=== PATIENT | male | born 1970 | race African-American/Black ===

== ENCOUNTER 2017-08-10 03:10 | Inpatient (IN) | payer OTHER ==
[~2017-08-10] VITALS: Ht 182.9 cm; Wt 81.6 kg
[~2017-08-10 03:10] MED LIST: AMLO2.5T45 PO; ASPI-1159 PO; ATOR-2 PO; CLOP75TA33 PO; HYDR-519 PO; INSU3INS6 SUBCUT; INSULIN; LISI10TA5 PO; METO50TA5 PO; SERT25TA PO; SULF1TAB48 PO
[2017-08-10] MEDS ORDERED: ONDANSETRON HCL 4MG/2ML VIAL IV STA (04:09)
[2017-08-10] MEDS ORDERED: MORPHINE SULFATE 4 MG/ML CPJ (NOT FOR IM USE) IV STA (04:09)
[2017-08-10 04:37] LABS: BASOPHILS % 1.4 % (0.0-2.0); EOSINOPHILS % 2.2 % (0.0-5.0); HEMATOCRIT. 29.4 % (42.0-52.0); HEMOGLOBIN. 9.4 g/dL (14.0-18.0); LYMPHOCYTES % 25.8 % (20.0-50.0); MEAN CORPUSCULAR HEMOGLOBIN 23.2 pg (28.0-32.0); MEAN CORPUSCULAR VOLUME 72.5 fL (80.0-94.0); MEAN PLATELET VOLUME 8.7 fl (7.4-10.4); MONOCYTES % 8.4 % (2.0-8.0); NEUTROPHILS % 62.2 % (40.0-76.0); PLATELET 291 x1000/uL (130-400); RED BLOOD CELL COUNT 4.05 mill/uL (4.7-6.1); RED CELL DISTRIBUTION WIDTH 15.9 % (11.6-14.6)
[2017-08-10 04:53] LABS: CHLORIDE 113 mEq/L (98-107); TROPONIN I 0.11 ng/mL (0.00-0.04)
[2017-08-10 04:55] LABS: CARBON DIOXIDE 24 mEq/L (21-32)
[2017-08-10] MEDS ORDERED: CLONIDINE 0.1MG TABLET PO ONE (07:30)
[2017-08-10] MEDS ORDERED: HYDROCODONE/ACETAMINOPHEN 5/325MG TABLET PO PRN ×2 (07:45→12:00)
[2017-08-10 10:00] VITALS: BP 194/115
[2017-08-10] MEDS: AMLODIPINE 5MG TABLET PO SCH ×2 (11:45→21:49)
[2017-08-10] MEDS: CLOPIDOGREL 75MG TABLET PO SCH (11:46)
[2017-08-10] MEDS: ASPIRIN 81MG TABLET PO SCH (11:46)
[2017-08-10] MEDS: METOPROLOL TARTRATE 100MG TABLET PO SCH ×2 (11:46→21:50)
[2017-08-10] MEDS: ONDANSETRON HCL 4MG/2ML VIAL IV PRN (11:47)
[2017-08-10] MEDS: MORPHINE SULFATE 4 MG/ML CPJ (NOT FOR IM USE) IV PRN (11:48)
[2017-08-10 12:00] VITALS: BP 170/94
[2017-08-10] MEDS ORDERED: ONDANSETRON HCL 4MG/2ML VIAL IV PRN (12:00)
[2017-08-10] MEDS ORDERED: CLONIDINE 0.1MG TABLET PO PRN (12:00)
[2017-08-10] MEDS ORDERED: ACETAMINOPHEN 325MG TABLET PO PRN (12:00)
[2017-08-10] MEDS ORDERED: DIPHENHYDRAMINE 50MG/ML VIAL IV PRN (12:00)
[2017-08-10] MEDS ORDERED: DEXTROSE 50% WATER 50ML SYRINGE IV PRN (12:00)
[2017-08-10] MEDS ORDERED: IPRATROPIUM/ALBUTEROL 0.5-3(2.5)MG/3ML NEB INH PRN (12:00)
[2017-08-10 12:50] LABS: CLARITY URINE CLEAR (CLEAR); COLOR URINE YELLOW (YELLOW); GLUCOSE URINE TRACE (NEGATIVE); KETONES URINE NEGATIVE (NEGATIVE); LEUKOCYTE ESTERASE URINE NEGATIVE (NEGATIVE); NITRITE URINE NEGATIVE (NEGATIVE); OCCULT BLOOD URINE 1+ (NEGATIVE); PH URINE 7.5 (4.5-8.0); PROTEIN URINE 4+ (NEGATIVE); SPECIFIC GRAVITY URINE 1.014 (1.005-1.030); UROBILINOGEN URINE 0.2 E.U./dL (0.2-1.0)
[2017-08-10 13:04] LABS: *AMPHETAMINES SCREEN URINE NEGATIVE (NEGATIVE); *BARBITURATES SCREEN URINE NEGATIVE (NEGATIVE); *BENZODIAZEPINES SCREEN URINE NEGATIVE (NEGATIVE); *COCAINE SCREEN URINE NEGATIVE (NEGATIVE); CANNABINOID URINE SCREEN NEGATIVE (NEGATIVE); METHADONE URINE SCREEN NEGATIVE (NEGATIVE); OPIATES URINE SCREEN PRESUMTIVE POSITIVE (NEGATIVE); PHENCYCLIDINE URINE SCREEN NEGATIVE (NEGATIVE)
[2017-08-10] MEDS: INSULIN LISPRO 100 UNITS/ML SUBCUT SCH ×3 (13:10→21:00)
[2017-08-10] MEDS: BLOOD SUGAR DIAGNOSTIC STRIP TEST SCH ×3 (13:26→21:50)
[2017-08-10] MEDS: CLONIDINE 0.2MG TABLET PO SCH ×2 (13:38→21:49)
[2017-08-10 14:03] LABS: CREATINE KINASE MB FRACTION 4.5 ng/mL (0.5-3.6); TROPONIN I 0.11 ng/mL (0.00-0.04)
[2017-08-10 16:00] VITALS: BP 150/90
[2017-08-10 20:00] VITALS: BP 145/89
[2017-08-11 00:53] VITALS: BP 138/88
[2017-08-11 04:00] VITALS: BP 148/81
[2017-08-11] MEDS: MORPHINE SULFATE 4 MG/ML CPJ (NOT FOR IM USE) IV PRN ×4 (05:16→22:15)
[2017-08-11] MEDS: CLONIDINE 0.2MG TABLET PO SCH ×3 (06:24→21:43)
[2017-08-11 07:40] LABS: EOSINOPHILS % 3.8 % (0.0-5.0); HEMATOCRIT. 26.9 % (42.0-52.0); HEMOGLOBIN. 8.5 g/dL (14.0-18.0); LYMPHOCYTES % 37.6 % (20.0-50.0); MEAN CORPUSCULAR HEMOGLOBIN 22.9 pg (28.0-32.0); MEAN CORPUSCULAR VOLUME 72.5 fL (80.0-94.0); MONOCYTES % 7.9 % (2.0-8.0); NEUTROPHILS % 49.7 % (40.0-76.0); PLATELET 265 x1000/uL (130-400); RED CELL DISTRIBUTION WIDTH 16.8 % (11.6-14.6)
[2017-08-11] MEDS: BLOOD SUGAR DIAGNOSTIC STRIP TEST SCH ×4 (07:45→21:42)
[2017-08-11] MEDS: INSULIN LISPRO 100 UNITS/ML SUBCUT SCH ×4 (07:46→21:00)
[2017-08-11 08:00] VITALS: BP 148/87
[2017-08-11] MEDS: ASPIRIN 81MG TABLET PO SCH (08:44)
[2017-08-11] MEDS: CLOPIDOGREL 75MG TABLET PO SCH (08:44)
[2017-08-11] MEDS: AMLODIPINE 5MG TABLET PO SCH ×2 (08:45→21:43)
[2017-08-11] MEDS: METOPROLOL TARTRATE 100MG TABLET PO SCH ×2 (08:45→21:43)
[2017-08-11 09:14] LABS: CHLORIDE 111 mEq/L (98-107)
[2017-08-11 09:21] LABS: CARBON DIOXIDE 25 mEq/L (21-32); CREATINE KINASE 310 IU/L (39-308); HDL CHOLESTEROL 42 mg/dL (40-59); LDL CHOLESTEROL 70 mg/dL (5-100)
[2017-08-11] MEDS: ONDANSETRON HCL 4MG/2ML VIAL IV PRN ×2 (09:28→15:06)
[2017-08-11 12:00] VITALS: BP 124/72
[2017-08-11] MEDS ORDERED: SODIUM BICARBONATE 8.4% 1 MEQ/ML 50ML SYR IV NR (12:45)
[2017-08-11] MEDS ORDERED: SODIUM POLYSTYRENE SULFONATE 15 G/60 ML BOT PO NR (12:45)
[2017-08-11] MEDS ORDERED: DEXTROSE 50% WATER 50ML SYRINGE IV NR (12:45)
[2017-08-11] MEDS ORDERED: INSULIN REGULAR (HUMULIN R) UD 100 UNITS/ML SYR IV NR (14:00)
[2017-08-11 16:00] VITALS: BP 162/79
[2017-08-11 20:00] VITALS: BP 175/96
[2017-08-12] VITALS (7 sets, daily range): BP systolic 147–177; BP diastolic 71–96
[2017-08-12 06:12] LABS: BASOPHILS % 1.1 % (0.0-2.0); EOSINOPHILS % 3.3 % (0.0-5.0); HEMATOCRIT. 31.4 % (42.0-52.0); HEMOGLOBIN. 10.1 g/dL (14.0-18.0); LYMPHOCYTES % 31.8 % (20.0-50.0); MEAN CORPUSCULAR HEMOGLOBIN 23.3 pg (28.0-32.0); MEAN CORPUSCULAR VOLUME 72.7 fL (80.0-94.0); MEAN PLATELET VOLUME 9.1 fl (7.4-10.4); MONOCYTES % 7.6 % (2.0-8.0); NEUTROPHILS % 56.2 % (40.0-76.0); PLATELET 303 x1000/uL (130-400); RED BLOOD CELL COUNT 4.32 mill/uL (4.7-6.1); RED CELL DISTRIBUTION WIDTH 16.2 % (11.6-14.6)
[2017-08-12] MEDS: CLONIDINE 0.2MG TABLET PO SCH ×3 (06:48→22:25)
[2017-08-12] MEDS: INSULIN LISPRO 100 UNITS/ML SUBCUT SCH ×4 (06:54→20:23)
[2017-08-12] MEDS: BLOOD SUGAR DIAGNOSTIC STRIP TEST SCH ×4 (06:54→20:23)
[2017-08-12] MEDS ORDERED: DEXTROSE 50% WATER 50ML SYRINGE IV NR (08:30)
[2017-08-12] MEDS ORDERED: SODIUM POLYSTYRENE SULFONATE 15 G/60 ML BOT PO NR (08:30)
[2017-08-12] MEDS ORDERED: INSULIN REGULAR (HUMULIN R) UD 100 UNITS/ML SYR IV NR (08:30)
[2017-08-12] MEDS: SODIUM BICARBONATE 8.4% 1 MEQ/ML 50ML SYR IV NR (09:19)
[2017-08-12] MEDS: ASPIRIN 81MG TABLET PO SCH (09:20)
[2017-08-12] MEDS: AMLODIPINE 5MG TABLET PO SCH ×2 (09:20→20:22)
[2017-08-12] MEDS: CLOPIDOGREL 75MG TABLET PO SCH (09:20)
[2017-08-12] MEDS: MORPHINE SULFATE 4 MG/ML CPJ (NOT FOR IM USE) IV PRN ×2 (09:21→15:47)
[2017-08-12] MEDS: METOPROLOL TARTRATE 100MG TABLET PO SCH ×2 (09:21→20:22)
[2017-08-12] MEDS: ONDANSETRON HCL 4MG/2ML VIAL IV PRN ×2 (09:56→15:58)
[2017-08-13] MEDS: MORPHINE SULFATE 4 MG/ML CPJ (NOT FOR IM USE) IV PRN ×3 (00:05→08:18)
[2017-08-13 00:24] VITALS: BP 136/74
[2017-08-13 04:00] VITALS: BP 163/90
[2017-08-13] MEDS: CLONIDINE 0.2MG TABLET PO SCH (06:11)
[2017-08-13 08:00] VITALS: BP 146/82
[2017-08-13] MEDS: INSULIN LISPRO 100 UNITS/ML SUBCUT SCH (08:10)
[2017-08-13] MEDS: BLOOD SUGAR DIAGNOSTIC STRIP TEST SCH (08:12)
[2017-08-13 08:20] LABS: HEMATOCRIT 34.7 % (42.0-52.0); MEAN CORPUSCULAR HEMOGLOBIN 23.2 pg (28.0-32.0); MEAN CORPUSCULAR VOLUME 73.6 fL (80.0-94.0); PLATELET 308 x1000/uL (130-400); RED BLOOD CELL COUNT 4.72 mill/uL (4.7-6.1)
[2017-08-13] MEDS: SODIUM BICARBONATE 8.4% 1 MEQ/ML 50ML SYR IV NR (08:30)
[2017-08-13 08:49] LABS: CARBON DIOXIDE 27 mEq/L (21-32); CHLORIDE 105 mEq/L (98-107)
[2017-08-13] MEDS: METOPROLOL TARTRATE 100MG TABLET PO SCH (09:55)
[2017-08-13] MEDS: AMLODIPINE 5MG TABLET PO SCH (09:55)
[2017-08-13] MEDS: ASPIRIN 81MG TABLET PO SCH (09:56)
[2017-08-13] MEDS: CLOPIDOGREL 75MG TABLET PO SCH (09:56)
== END 2017-08-13 10:25 | disposition left against medical advice (07) | DRG 199 ==
LOC: ER 03:36 → 7WST 06:23 → ENRESERV 08:35
PROVIDERS: ADMIT Internal Medicine; ATTEND Internal Medicine
DX: I16.0 Hypertensive urgency (principal); N17.0 Acute kidney failure with tubular necrosis; E43 Unspecified severe protein-calorie malnutrition; E11.22 Type 2 diabetes mellitus with diabetic chronic kidney disease; M94.0 Chondrocostal junction syndrome [Tietze]; E87.5 Hyperkalemia; I25.118 Atherosclerotic heart disease of native coronary artery with other forms of angina pectoris; I12.9 Hypertensive chronic kidney disease with stage 1 through stage 4 chronic kidney disease, or unspecified chronic kidney disease; J44.9 Chronic obstructive pulmonary disease, unspecified; E78.00 Pure hypercholesterolemia, unspecified; Z53.21 Procedure and treatment not carried out due to patient leaving prior to being seen by health care provider; E78.5 Hyperlipidemia, unspecified; F17.200 Nicotine dependence, unspecified, uncomplicated; H54.7 Unspecified visual loss; Z79.82 Long term (current) use of aspirin; Z79.899 Other long term (current) drug therapy; Z91.19 Patient's noncompliance with other medical treatment and regimen; Z95.5 Presence of coronary angioplasty implant and graft; Z79.4 Long term (current) use of insulin; N18.9 Chronic kidney disease, unspecified
CPT/HCPCS: 36415; 71010; 76770; 80048; 80053; 80061; 80305; 81001; 82550; 82553; 82962; 83036; 84132; 84484; 85025; 85027; 85379; 87040; 87086; 93005; 93306; 96374; 96375; 99285; J1815; J2270; J2405; J3490

== ENCOUNTER 2017-11-14 14:54 | Inpatient (IN) | payer OTHER ==
[~2017-11-14] VITALS: Ht 175.3 cm; Wt 79.4 kg
[~2017-11-14 14:54] MED LIST changes: +AMLO10TA80 PO; +METO-539 PO; -METO50TA5 PO
[2017-11-14 16:05] LABS: BASOPHILS % 1.1 % (0.0-2.0); EOSINOPHILS % 1.1 % (0.0-5.0); HEMATOCRIT. 24.7 % (42.0-52.0); HEMOGLOBIN. 7.9 g/dL (14.0-18.0); LYMPHOCYTES % 15.6 % (20.0-50.0); MEAN CORPUSCULAR HEMOGLOBIN 23.8 pg (28.0-32.0); MEAN CORPUSCULAR VOLUME 74.2 fL (80.0-94.0); MEAN PLATELET VOLUME 8.6 fl (7.4-10.4); MONOCYTES % 8.7 % (2.0-8.0); NEUTROPHILS % 73.5 % (40.0-76.0); PLATELET 370 x1000/uL (130-400); RED BLOOD CELL COUNT 3.34 mill/uL (4.7-6.1); RED CELL DISTRIBUTION WIDTH 18.9 % (11.6-14.6)
[2017-11-14] MEDS ORDERED: CEFTRIAXONE 1 G PREMIX 50 ML IV ONE (17:30)
[2017-11-14] MEDS ORDERED: VANCOMYCIN 1 G PREMIX 200 ML IV SCH (17:30)
[2017-11-14] MEDS ORDERED: HYDROCODONE/ACETAMINOPHEN 10/325MG TABLET PO ONE (17:45)
[2017-11-14] MEDS ORDERED: DOCUSATE SODIUM 100MG CAPSULE PO PRN (19:15)
[2017-11-14] MEDS ORDERED: IPRATROPIUM/ALBUTEROL 0.5-3(2.5)MG/3ML NEB INH PRN (19:15)
[2017-11-14] MEDS ORDERED: HYDROCODONE/ACETAMINOPHEN 5/325MG TABLET PO PRN (19:15)
[2017-11-14] MEDS ORDERED: MAGNESIUM/ALUMINUM HYDROXIDE/SIMETHICONE 30ML UDC PO PRN (19:15)
[2017-11-14] MEDS ORDERED: ACETAMINOPHEN 325MG TABLET PO PRN (19:15)
[2017-11-14 20:30] VITALS: BP 168/85
[2017-11-14 21:52] VITALS: BP 168/85
[2017-11-14] MEDS ORDERED: VANCOMYCIN 500 MG PREMIX 100 ML IV SCH (22:00)
[2017-11-14] MEDS: PIPERACILLIN/TAZ 2.25G PREMIX 50 ML IV SCH (23:29)
[2017-11-14] MEDS: MORPHINE SULFATE 2 MG/ML CPJ (NOT FOR IM USE) IV PRN (23:53)
[2017-11-15 04:00] VITALS: BP 175/97
[2017-11-15] MEDS: MORPHINE SULFATE 2 MG/ML CPJ (NOT FOR IM USE) IV PRN ×4 (04:10→19:57)
[2017-11-15 05:43] LABS: HEMATOCRIT. 26.4 % (42.0-52.0); HEMOGLOBIN. 8.4 g/dL (14.0-18.0); MEAN CORPUSCULAR HEMOGLOBIN 23.5 pg (28.0-32.0); MEAN CORPUSCULAR VOLUME 73.5 fL (80.0-94.0); MEAN PLATELET VOLUME 8.7 fl (7.4-10.4); PLATELET 369 x1000/uL (130-400); RED BLOOD CELL COUNT 3.59 mill/uL (4.7-6.1); RED CELL DISTRIBUTION WIDTH 19.1 % (11.6-14.6)
[2017-11-15 05:49] LABS: CREATINE KINASE MB FRACTION 2.2 ng/mL (0.5-3.6)
[2017-11-15 08:00] VITALS: BP 176/96
[2017-11-15] MEDS: INSULIN LISPRO 100 UNITS/ML SUBCUT SCH ×4 (08:13→20:05)
[2017-11-15] MEDS ORDERED: DEXTROSE 50% WATER 50ML SYRINGE IV PRN (08:15)
[2017-11-15] MEDS: BLOOD SUGAR DIAGNOSTIC STRIP TEST SCH ×4 (08:57→20:05)
[2017-11-15] MEDS: CLONIDINE 0.1MG TABLET PO PRN ×2 (09:59→14:08)
[2017-11-15] MEDS: PIPERACILLIN/TAZ 2.25G PREMIX 50 ML IV SCH ×2 (10:16→21:50)
[2017-11-15 12:00] VITALS: BP 165/96
[2017-11-15] MEDS ORDERED: HYDROCODONE/ACETAMINOPHEN 10/325MG TABLET PO PRN (14:15)
[2017-11-15 15:40] VITALS: BP 174/91
[2017-11-15] MEDS: SERTRALINE HCL 25MG TABLET PO SCH (16:23)
[2017-11-15 17:09] LABS: CLARITY URINE CLEAR (CLEAR); COLOR URINE YELLOW (YELLOW); KETONES URINE NEGATIVE (NEGATIVE); LEUKOCYTE ESTERASE URINE 1+ (NEGATIVE); NITRITE URINE NEGATIVE (NEGATIVE); OCCULT BLOOD URINE TRACE (NEGATIVE); PH URINE >=9.0 (4.5-8.0); PROTEIN URINE 3+ (NEGATIVE); SPECIFIC GRAVITY URINE 1.011 (1.005-1.030); UROBILINOGEN URINE 0.2 E.U./dL (0.2-1.0)
[2017-11-15 17:22] LABS: *AMPHETAMINES SCREEN URINE NEGATIVE (NEGATIVE); *BARBITURATES SCREEN URINE NEGATIVE (NEGATIVE); *BENZODIAZEPINES SCREEN URINE NEGATIVE (NEGATIVE); *COCAINE SCREEN URINE NEGATIVE (NEGATIVE); CANNABINOID URINE SCREEN NEGATIVE (NEGATIVE); METHADONE URINE SCREEN NEGATIVE (NEGATIVE); OPIATES URINE SCREEN PRESUMTIVE POSITIVE (NEGATIVE); PHENCYCLIDINE URINE SCREEN NEGATIVE (NEGATIVE)
[2017-11-15] MEDS: ATORVASTATIN CALCIUM 40MG TABLET PO SCH (19:56)
[2017-11-15 20:00] VITALS: BP 146/89
[2017-11-16] VITALS (9 sets, daily range): BP systolic 156–187; BP diastolic 86–107
[2017-11-16] MEDS: MORPHINE SULFATE 2 MG/ML CPJ (NOT FOR IM USE) IV PRN ×6 (04:06→20:48)
[2017-11-16] MEDS: CLONIDINE 0.1MG TABLET PO PRN ×2 (04:45→12:03)
[2017-11-16 06:31] LABS: HEMOGLOBIN. 7.8 g/dL (14.0-18.0); MEAN CORPUSCULAR VOLUME 74.2 fL (80.0-94.0); MEAN PLATELET VOLUME 8.8 fl (7.4-10.4); PLATELET 334 x1000/uL (130-400); RED BLOOD CELL COUNT 3.24 mill/uL (4.7-6.1); RED CELL DISTRIBUTION WIDTH 18.9 % (11.6-14.6)
[2017-11-16] MEDS: BLOOD SUGAR DIAGNOSTIC STRIP TEST SCH ×4 (07:40→20:41)
[2017-11-16] MEDS: INSULIN LISPRO 100 UNITS/ML SUBCUT SCH ×4 (08:10→20:41)
[2017-11-16] MEDS: LISINOPRIL 10MG TABLET PO SCH (08:25)
[2017-11-16] MEDS: PIPERACILLIN/TAZ 2.25G PREMIX 50 ML IV SCH ×2 (08:25→20:47)
[2017-11-16] MEDS: SERTRALINE HCL 25MG TABLET PO SCH ×2 (08:26→16:08)
[2017-11-16] MEDS ORDERED: MEDICATION NOT ON FORMULARY EA (Atorvastatin Calcium 80 TAB) PO SCH (09:00)
[2017-11-16] MEDS ORDERED: AMLODIPINE 5MG TABLET PO SCH (09:00)
[2017-11-16] MEDS ORDERED: METOPROLOL TARTRATE 50MG TABLET PO SCH (09:00)
[2017-11-16 13:07] LABS: PLATELET ESTIMATE NORMAL
[2017-11-16 13:46] LABS: PLATELET ESTIMATE NORMAL
[2017-11-16] MEDS ORDERED: NEPVIT PO (15:51)
[2017-11-16] MEDS ORDERED: HYDR-4134 PO (15:51)
[2017-11-16] MEDS ORDERED: CALC667C PO (15:51)
[2017-11-16] MEDS ORDERED: CYM20 PO (15:51)
[2017-11-16] MEDS ORDERED: LINE600T32 PO (15:51)
[2017-11-16] MEDS ORDERED: VANCOMYCIN 1 G PREMIX 200 ML IV NR (16:00)
[2017-11-16] MEDS: HYDRALAZINE HCL 50MG TABLET PO SCH ×2 (16:52→17:00)
[2017-11-16] MEDS: ONDANSETRON HCL 4MG/2ML INJ IV PRN (18:30)
[2017-11-16] MEDS: ATORVASTATIN CALCIUM 40MG TABLET PO SCH (20:47)
[2017-11-16] MEDS: AMLODIPINE 5MG TABLET PO SCH (20:47)
[2017-11-16] MEDS: METOPROLOL TARTRATE 50MG TABLET PO SCH (20:47)
[2017-11-17] VITALS (14 sets, daily range): BP systolic 146–184; BP diastolic 79–104
[2017-11-17] MEDS: HYDRALAZINE HCL 50MG TABLET PO SCH ×4 (00:47→17:24)
[2017-11-17] MEDS: CLONIDINE 0.1MG TABLET PO PRN (00:49)
[2017-11-17] MEDS: MORPHINE SULFATE 2 MG/ML CPJ (NOT FOR IM USE) IV PRN ×5 (00:50→20:42)
[2017-11-17] MEDS: BLOOD SUGAR DIAGNOSTIC STRIP TEST SCH ×4 (05:47→20:46)
[2017-11-17] MEDS: INSULIN LISPRO 100 UNITS/ML SUBCUT SCH ×4 (08:10→20:46)
[2017-11-17] MEDS: PIPERACILLIN/TAZ 2.25G PREMIX 50 ML IV SCH ×2 (08:45→20:49)
[2017-11-17] MEDS: LISINOPRIL 10MG TABLET PO SCH (08:46)
[2017-11-17] MEDS: METOPROLOL TARTRATE 50MG TABLET PO SCH ×2 (08:46→20:42)
[2017-11-17] MEDS: AMLODIPINE 5MG TABLET PO SCH ×2 (08:46→20:42)
[2017-11-17] MEDS: SERTRALINE HCL 25MG TABLET PO SCH ×2 (08:51→16:47)
[2017-11-17 10:42] LABS: HEMATOCRIT. 24.9 % (42.0-52.0); HEMOGLOBIN. 7.7 g/dL (14.0-18.0); MEAN CORPUSCULAR HEMOGLOBIN 22.9 pg (28.0-32.0); MEAN CORPUSCULAR VOLUME 73.6 fL (80.0-94.0); MEAN PLATELET VOLUME 8.2 fl (7.4-10.4); PLATELET 353 x1000/uL (130-400); RED BLOOD CELL COUNT 3.38 mill/uL (4.7-6.1)
[2017-11-17] MEDS ORDERED: SODIUM BICARBONATE 4% (2.4MEQ) 5ML VIAL IV ONE (12:55)
[2017-11-17] MEDS ORDERED: LIDOCAINE HCL 1% 20ML VIAL (Pyxis) INJ ONE (12:55)
[2017-11-17 12:59] LABS: INR 1.1; PARTIAL THROMBOPLASTIN TIME 26.4 sec (23.4-31.0); PROTHROMBIN TIME 11.1 sec (9.4-11.6)
[2017-11-17] MEDS: ONDANSETRON HCL 4MG/2ML INJ IV PRN (13:14)
[2017-11-17] MEDS ORDERED: MORPHINE SULFATE 4 MG/ML CPJ (NOT FOR IM USE) IV NR (13:30)
[2017-11-17] MEDS ORDERED: HEPARIN 100 UNITS/1 ML VIAL IVF PRN (14:15)
[2017-11-17 16:45] LABS: PLATELET ESTIMATE NORMAL
[2017-11-17] MEDS ORDERED: HEPARIN SODIUM 1,000 UNIT/1ML VIAL IV NR (17:00)
[2017-11-17] MEDS: ATORVASTATIN CALCIUM 40MG TABLET PO SCH (20:46)
[2017-11-18] MEDS ORDERED: LISINOPRIL 20MG TABLET PO SCH (09:00)
[2018-02-17] MEDS ORDERED: CARI350T27 PO (16:19)
== END 2017-11-17 21:25 | disposition short-term general hospital (02) | DRG 721 ==
LOC: ER 15:07 → 6EST 17:21 → ENRESERV 19:22 → 7WST 11-15 15:19
PROVIDERS: ADMIT Internal Medicine; ATTEND Internal Medicine
PROC: 0JH63XZ Insertion of Tunneled Vascular Access Device into Chest Subcutaneous Tissue and Fascia, Percutaneous Approach (ICD-10-PCS; principal; 2017-11-17)
PROC: 02HV33Z Insertion of Infusion Device into Superior Vena Cava, Percutaneous Approach (ICD-10-PCS; 2017-11-17)
PROC: B5181ZA Fluoroscopy of Superior Vena Cava using Low Osmolar Contrast, Guidance (ICD-10-PCS; 2017-11-17)
PROC: B548ZZA Ultrasonography of Superior Vena Cava, Guidance (ICD-10-PCS; 2017-11-17)
DX: T80.211A Bloodstream infection due to central venous catheter, initial encounter (principal); I50.43 Acute on chronic combined systolic (congestive) and diastolic (congestive) heart failure; A41.9 Sepsis, unspecified organism; N18.6 End stage renal disease; I42.9 Cardiomyopathy, unspecified; E11.22 Type 2 diabetes mellitus with diabetic chronic kidney disease; I13.2 Hypertensive heart and chronic kidney disease with heart failure and with stage 5 chronic kidney disease, or end stage renal disease; E11.40 Type 2 diabetes mellitus with diabetic neuropathy, unspecified; D63.1 Anemia in chronic kidney disease; F19.90 Other psychoactive substance use, unspecified, uncomplicated; E78.5 Hyperlipidemia, unspecified; I25.118 Atherosclerotic heart disease of native coronary artery with other forms of angina pectoris; H54.62 Unqualified visual loss, left eye, normal vision right eye; F17.210 Nicotine dependence, cigarettes, uncomplicated; Y84.8 Other medical procedures as the cause of abnormal reaction of the patient, or of later complication, without mention of misadventure at the time of the procedure; Z91.19 Patient's noncompliance with other medical treatment and regimen; Z79.02 Long term (current) use of antithrombotics/antiplatelets; Z79.82 Long term (current) use of aspirin; Z99.2 Dependence on renal dialysis; Z95.5 Presence of coronary angioplasty implant and graft; Z79.899 Other long term (current) drug therapy; Y92.89 Other specified places as the place of occurrence of the external cause
CPT/HCPCS: 36415; 36558; 71045; 76937; 77001; 80048; 80061; 80202; 80305; 81001; 82550; 82553; 82962; 83605; 84484; 87070; 93005; 93306; 93970; 96365; 99291; C1725; C1750; C1769; J0696; J1642; J1644; J1815; J2270; J2405; J2543; J3370; J3490; J7030; J7050

== ENCOUNTER 2018-03-29 02:11 | Inpatient (IN) | payer MEDICAID ==
[~2018-03-29] VITALS: Ht 182.9 cm; Wt 85.3 kg
[~2018-03-29 02:11] MED LIST changes: -AMLO2.5T45 PO; -ATOR-2 PO; +CALC667C PO; +CARI350T27 PO; +CYM20 PO; +HYDR-4134 PO; -HYDR-519 PO; -INSU3INS6 SUBCUT; -INSULIN; -LISI10TA5 PO; -METO-539 PO; +NEPVIT PO; -SERT25TA PO; -SULF1TAB48 PO
[2018-03-29] MEDS ORDERED: MORPHINE SULFATE 4 MG/ML CPJ (NOT FOR IM USE) IV STA (02:47)
[2018-03-29] MEDS ORDERED: NITROGLYCERIN OINT 1GM/INCH UDPKT TD STA (02:47)
[2018-03-29] MEDS ORDERED: ONDANSETRON HCL 4MG/2ML VIAL IV STA (02:47)
[2018-03-29] MEDS ORDERED: CLONIDINE 0.2MG TABLET PO ONE (03:15)
[2018-03-29 03:35] LABS: BASOPHILS % 1.6 % (0.0-2.0); EOSINOPHILS % 2.9 % (0.0-5.0); HEMATOCRIT. 26.7 % (42.0-52.0); HEMOGLOBIN. 8.5 g/dL (14.0-18.0); MEAN CORPUSCULAR HEMOGLOBIN 24.1 pg (28.0-32.0); MEAN CORPUSCULAR VOLUME 75.6 fL (80.0-94.0); MEAN PLATELET VOLUME 8.6 fl (7.4-10.4); MONOCYTES % 5.2 % (2.0-8.0); NEUTROPHILS % 46.3 % (40.0-76.0); PLATELET 315 x1000/uL (130-400); RED BLOOD CELL COUNT 3.53 mill/uL (4.7-6.1); RED CELL DISTRIBUTION WIDTH 19.1 % (11.6-14.6)
[2018-03-29 03:39] LABS: CHLORIDE 110 mEq/L (98-107)
[2018-03-29 03:43] LABS: INR 1.2; PARTIAL THROMBOPLASTIN TIME 27.8 sec (23.4-31.0); PROTHROMBIN TIME 12.4 sec (9.4-11.6)
[2018-03-29] MEDS ORDERED: HYDRALAZINE 20MG/ML VIAL IV ONE (04:30)
[2018-03-29] MEDS ORDERED: ONDANSETRON HCL 4MG/2ML VIAL IV ONE (04:30)
[2018-03-29] MEDS ORDERED: ACETAMINOPHEN 325MG TABLET PO ONE (05:15)
[2018-03-29] MEDS ORDERED: VANCOMYCIN 1 G PREMIX 200 ML IV ONE (05:15)
[2018-03-29] MEDS ORDERED: SODIUM CHLORIDE 0.9% 1000ML BAG (SEPSIS BOLUS) IV ONE (05:15)
[2018-03-29] MEDS ORDERED: PIPERACILLIN/TAZ 3.375G PREMIX 50 ML IV ONE (05:15)
[2018-03-29] MEDS ORDERED: DOCUSATE SODIUM 100MG CAPSULE PO PRN (06:15)
[2018-03-29] MEDS ORDERED: ONDANSETRON HCL 4MG/2ML VIAL IV PRN (06:15)
[2018-03-29] MEDS ORDERED: IPRATROPIUM/ALBUTEROL 0.5-3(2.5)MG/3ML NEB INH PRN (06:15)
[2018-03-29] MEDS ORDERED: HYDROCODONE/ACETAMINOPHEN 10/325MG TABLET PO PRN (06:15)
[2018-03-29] MEDS ORDERED: GUAIFENESIN 200MG/10ML SUGAR FREE UDC PO PRN (06:15)
[2018-03-29] MEDS ORDERED: LORAZEPAM 2MG/ML CPJ IV PRN (06:15)
[2018-03-29] MEDS ORDERED: MAGNESIUM/ALUMINUM HYDROXIDE/SIMETHICONE 30ML UDC PO PRN (06:15)
[2018-03-29] MEDS ORDERED: ACETAMINOPHEN 325MG TABLET PO PRN (06:15)
[2018-03-29] MEDS: MORPHINE SULFATE 4 MG/ML CPJ (NOT FOR IM USE) IV PRN ×3 (07:55→23:11)
[2018-03-29] MEDS ORDERED: NA PHOS,M-B/NA PHOS,DI-BA ENEMA 118ML PR PRN (16:00)
[2018-03-29 16:43] VITALS: BP 157/102
[2018-03-29 17:00] VITALS: BP 157/102
[2018-03-29] MEDS ORDERED: ENOXAPARIN 30MG/0.3ML SYR SUBCUT SCH (17:00)
[2018-03-29] MEDS ORDERED: VANCOMYCIN 500 MG PREMIX 100 ML IV NR (18:30)
[2018-03-29 20:00] VITALS: BP 165/109
[2018-03-29] MEDS: AMLODIPINE 5MG TABLET PO SCH (20:54)
[2018-03-29] MEDS: CARVEDILOL 3.125 MG TABLET PO SCH (20:55)
[2018-03-29] MEDS: LOSARTAN POTASSIUM 50 MG TABLET PO SCH (20:55)
[2018-03-29] MEDS: HYDRALAZINE HCL 50MG TABLET PO SCH (21:27)
[2018-03-29 23:52] VITALS: BP 154/97
[2018-03-30 04:00] VITALS: BP 146/91
[2018-03-30] MEDS: HYDRALAZINE HCL 50MG TABLET PO SCH ×3 (05:57→23:25)
[2018-03-30] MEDS: MORPHINE SULFATE 4 MG/ML CPJ (NOT FOR IM USE) IV PRN ×4 (06:04→23:31)
[2018-03-30 08:00] VITALS: BP 155/96
[2018-03-30] MEDS: LOSARTAN POTASSIUM 50 MG TABLET PO SCH ×2 (08:38→20:21)
[2018-03-30] MEDS: CARVEDILOL 3.125 MG TABLET PO SCH ×2 (08:38→20:21)
[2018-03-30] MEDS: AMLODIPINE 5MG TABLET PO SCH ×2 (08:39→20:21)
[2018-03-30 09:18] LABS: HEMATOCRIT. 26.6 % (42.0-52.0); HEMOGLOBIN. 8.3 g/dL (14.0-18.0); MEAN CORPUSCULAR HEMOGLOBIN 23.9 pg (28.0-32.0); MEAN CORPUSCULAR VOLUME 76.4 fL (80.0-94.0); MEAN PLATELET VOLUME 8.7 fl (7.4-10.4); PLATELET 264 x1000/uL (130-400); RED BLOOD CELL COUNT 3.47 mill/uL (4.7-6.1); RED CELL DISTRIBUTION WIDTH 19.6 % (11.6-14.6)
[2018-03-30 09:47] LABS: CHLORIDE 107 mEq/L (98-107)
[2018-03-30 09:55] LABS: HDL CHOLESTEROL 53 mg/dL (40-59); LDL CHOLESTEROL 55 mg/dL (5-100)
[2018-03-30 12:02] VITALS: BP 144/85
[2018-03-30] MEDS ORDERED: HEPARIN SODIUM 1,000 UNIT/1ML VIAL IV NR (16:03)
[2018-03-30] MEDS ORDERED: VANCOMYCIN 500 MG PREMIX 100 ML IV NR (17:00)
[2018-03-30 17:36] LABS: PLATELET ESTIMATE NORMAL
[2018-03-30] MEDS ORDERED: CEFEPIME 2,000 MG in DEXT 5% WATER 100 ML IV SCH (18:00)
[2018-03-30 20:00] VITALS: BP 169/99
[2018-03-30] MEDS: EPOETIN ALFA 4000UNITS/ML VIAL SUBCUT SCH (20:22)
[2018-03-30] MEDS: CLONIDINE 0.1MG TABLET PO PRN (23:33)
[2018-03-31] VITALS: BP 167/103
[2018-03-31] MEDS: DIPHENHYDRAMINE 50MG/ML VIAL IV PRN ×4 (01:36→20:31)
[2018-03-31 04:00] VITALS: BP 154/89
[2018-03-31] MEDS: MORPHINE SULFATE 4 MG/ML CPJ (NOT FOR IM USE) IV PRN ×5 (04:21→20:32)
[2018-03-31] MEDS: HYDRALAZINE HCL 50MG TABLET PO SCH (05:39)
[2018-03-31 07:30] LABS: HEMATOCRIT. 27.4 % (42.0-52.0); HEMOGLOBIN. 8.6 g/dL (14.0-18.0); MEAN CORPUSCULAR HEMOGLOBIN 23.8 pg (28.0-32.0); MEAN CORPUSCULAR VOLUME 75.5 fL (80.0-94.0); PLATELET 264 x1000/uL (130-400); RED BLOOD CELL COUNT 3.63 mill/uL (4.7-6.1); RED CELL DISTRIBUTION WIDTH 18.6 % (11.6-14.6)
[2018-03-31] MEDS: LOSARTAN POTASSIUM 50 MG TABLET PO SCH ×2 (08:04→20:30)
[2018-03-31] MEDS: AMLODIPINE 5MG TABLET PO SCH (08:05)
[2018-03-31] MEDS: CARVEDILOL 3.125 MG TABLET PO SCH (08:05)
[2018-03-31 08:38] VITALS: BP 150/87
[2018-03-31 12:30] LABS: CLARITY URINE CLEAR (CLEAR); COLOR URINE YELLOW (YELLOW); KETONES URINE NEGATIVE (NEGATIVE); LEUKOCYTE ESTERASE URINE NEGATIVE (NEGATIVE); NITRITE URINE NEGATIVE (NEGATIVE); OCCULT BLOOD URINE NEGATIVE (NEGATIVE); PH URINE 7.5 (4.5-8.0); PROTEIN URINE 4+ (NEGATIVE); SPECIFIC GRAVITY URINE 1.018 (1.005-1.030); UROBILINOGEN URINE 0.2 E.U./dL (0.2-1.0)
[2018-03-31 12:43] VITALS: BP 146/89
[2018-03-31] MEDS ORDERED: LEVOFLOXACIN 750MG PREMIX 150 ML IV SCH (14:00)
[2018-03-31] MEDS: HYDRALAZINE HCL 100MG TABLET PO SCH ×2 (15:09→20:30)
[2018-03-31] MEDS: NIFEDIPINE XL 60MG TAB PO SCH ×2 (15:09→20:31)
[2018-03-31 15:25] LABS: PLATELET ESTIMATE NORMAL
[2018-03-31 17:20] VITALS: BP 146/82
[2018-03-31 20:00] VITALS: BP 177/99
[2018-03-31] MEDS: CARVEDILOL 6.25 MG TABLET PO SCH (20:30)
[2018-04-01] VITALS: BP 144/82
[2018-04-01] MEDS: MORPHINE SULFATE 4 MG/ML CPJ (NOT FOR IM USE) IV PRN ×4 (02:38→20:17)
[2018-04-01] MEDS: DIPHENHYDRAMINE 50MG/ML VIAL IV PRN ×4 (02:38→21:35)
[2018-04-01 04:00] VITALS: BP 133/84
[2018-04-01] MEDS: HYDRALAZINE HCL 100MG TABLET PO SCH ×3 (05:44→22:48)
[2018-04-01 07:14] LABS: HEMATOCRIT. 23.5 % (42.0-52.0); HEMOGLOBIN. 7.4 g/dL (14.0-18.0); MEAN CORPUSCULAR HEMOGLOBIN 23.7 pg (28.0-32.0); MEAN CORPUSCULAR VOLUME 75.6 fL (80.0-94.0); MEAN PLATELET VOLUME 9.3 fl (7.4-10.4); PLATELET 214 x1000/uL (130-400); RED BLOOD CELL COUNT 3.11 mill/uL (4.7-6.1); RED CELL DISTRIBUTION WIDTH 18.8 % (11.6-14.6)
[2018-04-01 08:00] VITALS: BP 113/73
[2018-04-01] MEDS: LOSARTAN POTASSIUM 50 MG TABLET PO SCH ×2 (09:00→20:17)
[2018-04-01] MEDS ORDERED: HEPARIN SODIUM 1,000 UNIT/1ML VIAL IV NR (09:15)
[2018-04-01] MEDS: CARVEDILOL 6.25 MG TABLET PO SCH ×2 (11:01→20:18)
[2018-04-01] MEDS: NIFEDIPINE XL 60MG TAB PO SCH ×2 (11:01→21:23)
[2018-04-01 12:00] VITALS: BP 118/78
[2018-04-01] MEDS ORDERED: VANCOMYCIN 1 G PREMIX 200 ML IV NR (12:30)
[2018-04-01 16:00] VITALS: BP 119/63
[2018-04-01 17:36] LABS: PLATELET ESTIMATE NORMAL
[2018-04-01 20:00] VITALS: BP 118/70
[2018-04-01] MEDS: EPOETIN ALFA 4000UNITS/ML VIAL SUBCUT SCH (21:24)
[2018-04-02] VITALS: BP 119/71
[2018-04-02] MEDS: MORPHINE SULFATE 4 MG/ML CPJ (NOT FOR IM USE) IV PRN ×5 (00:32→20:19)
[2018-04-02 04:00] VITALS: BP 111/63
[2018-04-02] MEDS: HYDRALAZINE HCL 100MG TABLET PO SCH ×3 (06:47→22:50)
[2018-04-02 08:00] VITALS: BP 112/66
[2018-04-02] MEDS: NIFEDIPINE XL 60MG TAB PO SCH ×2 (08:17→20:19)
[2018-04-02] MEDS: DIPHENHYDRAMINE 50MG/ML VIAL IV PRN ×2 (08:32→22:54)
[2018-04-02] MEDS: CARVEDILOL 6.25 MG TABLET PO SCH ×2 (08:52→20:19)
[2018-04-02] MEDS: LOSARTAN POTASSIUM 50 MG TABLET PO SCH ×2 (08:52→20:20)
[2018-04-02] MEDS ORDERED: LIDOCAINE HCL/PF 1% 10 MG/ML 5ML VIAL ONE (11:15)
[2018-04-02 12:00] VITALS: BP 132/73
[2018-04-02] MEDS ORDERED: ONDANSETRON HCL 4MG/2ML VIAL IV PRN (14:45)
[2018-04-02] MEDS ORDERED: LEVOFLOXACIN 500MG PREMIX 100 ML IV SCH (15:00)
[2018-04-02 16:00] VITALS: BP 121/65
[2018-04-02 20:00] VITALS: BP 143/74
[2018-04-03] VITALS: BP 120/60
[2018-04-03 04:00] VITALS: BP 113/66
[2018-04-03] MEDS: HYDRALAZINE HCL 100MG TABLET PO SCH ×3 (06:00→21:33)
[2018-04-03 08:00] VITALS: BP 128/75
[2018-04-03] MEDS: CARVEDILOL 6.25 MG TABLET PO SCH ×2 (09:00→21:35)
[2018-04-03] MEDS: NIFEDIPINE XL 60MG TAB PO SCH ×2 (09:00→21:33)
[2018-04-03] MEDS: LOSARTAN POTASSIUM 50 MG TABLET PO SCH ×2 (09:00→21:33)
[2018-04-03] MEDS ORDERED: LIDOCAINE HCL/PF 1% 10 MG/ML 5ML VIAL ONE (09:37)
[2018-04-03] MEDS: MORPHINE SULFATE 4 MG/ML CPJ (NOT FOR IM USE) IV PRN ×3 (09:41→22:21)
[2018-04-03 12:00] VITALS: BP 130/78
[2018-04-03 16:00] VITALS: BP 127/74
[2018-04-03 16:10] LABS: HEMATOCRIT. 26.5 % (42.0-52.0); HEMOGLOBIN. 8.5 g/dL (14.0-18.0); MEAN CORPUSCULAR HEMOGLOBIN 23.8 pg (28.0-32.0); MEAN CORPUSCULAR VOLUME 74.5 fL (80.0-94.0); MEAN PLATELET VOLUME 9.1 fl (7.4-10.4); PLATELET 265 x1000/uL (130-400); RED BLOOD CELL COUNT 3.56 mill/uL (4.7-6.1); RED CELL DISTRIBUTION WIDTH 18.2 % (11.6-14.6)
[2018-04-03 16:52] LABS: PLATELET ESTIMATE NORMAL
[2018-04-03 20:00] VITALS: BP 132/71
[2018-04-03] MEDS ORDERED: EPOETIN ALFA 10000UNITS/ML VIAL SUBCUT SCH (21:00)
[2018-04-03] MEDS: DIPHENHYDRAMINE 50MG/ML VIAL IV PRN (22:20)
[2018-04-04] VITALS: BP 126/70
[2018-04-04] MEDS: MORPHINE SULFATE 4 MG/ML CPJ (NOT FOR IM USE) IV PRN ×5 (03:03→21:54)
[2018-04-04 04:00] VITALS: BP 142/81
[2018-04-04] MEDS: HYDRALAZINE HCL 100MG TABLET PO SCH ×3 (06:33→21:55)
[2018-04-04] MEDS: DIPHENHYDRAMINE 50MG/ML VIAL IV PRN ×2 (06:33→14:46)
[2018-04-04] MEDS: CARVEDILOL 6.25 MG TABLET PO SCH ×2 (07:31→21:55)
[2018-04-04] MEDS: LOSARTAN POTASSIUM 50 MG TABLET PO SCH ×2 (07:31→21:00)
[2018-04-04] MEDS: NIFEDIPINE XL 60MG TAB PO SCH ×2 (07:31→21:55)
[2018-04-04 07:38] LABS: HEMATOCRIT. 30.8 % (42.0-52.0); HEMOGLOBIN. 9.7 g/dL (14.0-18.0); MEAN CORPUSCULAR HEMOGLOBIN 23.5 pg (28.0-32.0); MEAN CORPUSCULAR VOLUME 74.2 fL (80.0-94.0); MEAN PLATELET VOLUME 9.6 fl (7.4-10.4); PLATELET 301 x1000/uL (130-400); RED BLOOD CELL COUNT 4.14 mill/uL (4.7-6.1)
[2018-04-04 07:39] VITALS: BP 151/89
[2018-04-04 11:31] VITALS: BP 156/89
[2018-04-04] MEDS: CLONIDINE 0.1MG TABLET PO PRN (11:41)
[2018-04-04 13:24] LABS: PLATELET ESTIMATE NORMAL
[2018-04-04] MEDS: LEVOFLOXACIN 500MG TABLET PO SCH (14:54)
[2018-04-04 16:00] VITALS: BP 114/71
[2018-04-04 20:00] VITALS: BP 108/66
[2018-04-05] VITALS: BP 118/72
[2018-04-05 04:00] VITALS: BP 120/73
[2018-04-05] MEDS: MORPHINE SULFATE 4 MG/ML CPJ (NOT FOR IM USE) IV PRN ×5 (04:49→22:49)
[2018-04-05 05:44] LABS: HEMATOCRIT. 29.4 % (42.0-52.0); HEMOGLOBIN. 9.2 g/dL (14.0-18.0); MEAN CORPUSCULAR HEMOGLOBIN 23.5 pg (28.0-32.0); MEAN CORPUSCULAR VOLUME 74.8 fL (80.0-94.0); MEAN PLATELET VOLUME 8.8 fl (7.4-10.4); PLATELET 288 x1000/uL (130-400); RED BLOOD CELL COUNT 3.92 mill/uL (4.7-6.1); RED CELL DISTRIBUTION WIDTH 18.4 % (11.6-14.6)
[2018-04-05] MEDS: HYDRALAZINE HCL 100MG TABLET PO SCH ×3 (05:48→22:48)
[2018-04-05 08:00] VITALS: BP 124/74
[2018-04-05] MEDS: NIFEDIPINE XL 60MG TAB PO SCH ×2 (09:00→21:10)
[2018-04-05] MEDS: CARVEDILOL 6.25 MG TABLET PO SCH ×2 (09:00→21:10)
[2018-04-05] MEDS: LOSARTAN POTASSIUM 50 MG TABLET PO SCH ×2 (09:00→21:09)
[2018-04-05 09:58] LABS: PLATELET ESTIMATE NORMAL
[2018-04-05 12:00] VITALS: BP 137/82
[2018-04-05] MEDS: DIPHENHYDRAMINE 50MG/ML VIAL IV PRN ×2 (15:44→22:49)
[2018-04-05 16:00] VITALS: BP 134/76
[2018-04-05] MEDS ORDERED: OXYCODONE HCL/ACETAMINOPHEN 5/325MG TABLET PO PRN (18:00)
[2018-04-05 20:00] VITALS: BP 141/73
[2018-04-05] MEDS ORDERED: VISCOUS LIDOCAINE 2% 15 ML UDC MM PRN (20:00)
[2018-04-06] VITALS: BP 153/82
[2018-04-06] MEDS: MORPHINE SULFATE 4 MG/ML CPJ (NOT FOR IM USE) IV PRN ×5 (02:49→22:27)
[2018-04-06 04:00] VITALS: BP 146/73
[2018-04-06] MEDS: HYDRALAZINE HCL 100MG TABLET PO SCH ×3 (05:17→22:26)
[2018-04-06] MEDS: DIPHENHYDRAMINE 50MG/ML VIAL IV PRN ×3 (05:17→20:45)
[2018-04-06 08:00] VITALS: BP 131/68
[2018-04-06] MEDS: CARVEDILOL 6.25 MG TABLET PO SCH ×2 (09:00→20:45)
[2018-04-06] MEDS: LOSARTAN POTASSIUM 50 MG TABLET PO SCH ×2 (09:00→20:45)
[2018-04-06] MEDS: NIFEDIPINE XL 60MG TAB PO SCH ×2 (09:00→20:45)
[2018-04-06 12:00] VITALS: BP 162/81
[2018-04-06] MEDS: LEVOFLOXACIN 500MG TABLET PO SCH (14:37)
[2018-04-06 16:00] VITALS: BP 118/67
[2018-04-06 20:00] VITALS: BP 127/70
[2018-04-07] VITALS (7 sets, daily range): BP systolic 134–175; BP diastolic 75–99
[2018-04-07] MEDS: DIPHENHYDRAMINE 50MG/ML VIAL IV PRN ×5 (03:06→22:46)
[2018-04-07] MEDS: MORPHINE SULFATE 4 MG/ML CPJ (NOT FOR IM USE) IV PRN ×5 (03:07→22:47)
[2018-04-07] MEDS: HYDRALAZINE HCL 100MG TABLET PO SCH ×3 (05:49→22:47)
[2018-04-07 07:20] LABS: HEMATOCRIT. 27.5 % (42.0-52.0); HEMOGLOBIN. 8.8 g/dL (14.0-18.0); MEAN CORPUSCULAR HEMOGLOBIN 23.8 pg (28.0-32.0); MEAN CORPUSCULAR VOLUME 74.2 fL (80.0-94.0); MEAN PLATELET VOLUME 9.5 fl (7.4-10.4); PLATELET 312 x1000/uL (130-400); RED CELL DISTRIBUTION WIDTH 17.9 % (11.6-14.6)
[2018-04-07] MEDS: CARVEDILOL 6.25 MG TABLET PO SCH ×2 (08:26→21:03)
[2018-04-07] MEDS: LOSARTAN POTASSIUM 50 MG TABLET PO SCH ×2 (08:26→21:03)
[2018-04-07] MEDS: NIFEDIPINE XL 60MG TAB PO SCH ×2 (08:29→21:03)
[2018-04-07 11:51] LABS: PLATELET ESTIMATE NORMAL
[2018-04-07] MEDS ORDERED: COR6 PO (17:09)
[2018-04-07] MEDS ORDERED: LEVO500T2 PO (17:09)
[2018-04-07] MEDS ORDERED: HYDR100T26 PO (17:09)
[2018-04-07] MEDS ORDERED: LOSA50TA3 PO (17:09)
[2018-04-07] MEDS ORDERED: NIFE60TA64 PO (17:09)
[2018-04-08] VITALS (14 sets, daily range): BP systolic 148–172; BP diastolic 70–105
[2018-04-08] MEDS: MORPHINE SULFATE 4 MG/ML CPJ (NOT FOR IM USE) IV PRN ×2 (02:54→08:46)
[2018-04-08] MEDS: DIPHENHYDRAMINE 50MG/ML VIAL IV PRN ×3 (02:54→12:28)
[2018-04-08] MEDS: HYDRALAZINE HCL 100MG TABLET PO SCH ×2 (05:09→16:38)
[2018-04-08 07:06] LABS: HEMATOCRIT. 29.4 % (42.0-52.0); HEMOGLOBIN. 9.3 g/dL (14.0-18.0); MEAN CORPUSCULAR HEMOGLOBIN 23.8 pg (28.0-32.0); MEAN CORPUSCULAR VOLUME 74.9 fL (80.0-94.0); MEAN PLATELET VOLUME 8.7 fl (7.4-10.4); PLATELET 336 x1000/uL (130-400); RED BLOOD CELL COUNT 3.93 mill/uL (4.7-6.1)
[2018-04-08] MEDS: NIFEDIPINE XL 60MG TAB PO SCH (08:45)
[2018-04-08] MEDS: CARVEDILOL 6.25 MG TABLET PO SCH (08:45)
[2018-04-08] MEDS: LOSARTAN POTASSIUM 50 MG TABLET PO SCH (08:45)
[2018-04-08] MEDS ORDERED: LEVOFLOXACIN 250MG TABLET PO SCH (09:00)
[2018-04-08] MEDS ORDERED: FENTANYL CITRATE/PF 50MCG/ML 2ML VIAL IV ONE (10:05)
[2018-04-08] MEDS ORDERED: LEVOFLOXACIN 500MG TABLET PO SCH (11:00)
[2018-04-08] MEDS ORDERED: FENTANYL CITRATE/PF 50MCG/ML 2ML VIAL ONE (11:57)
[2018-04-08] MEDS ORDERED: LIDOCAINE HCL/PF 1% 10 MG/ML 5ML VIAL ONE (11:57)
[2018-04-08] MEDS ORDERED: SODIUM BICARBONATE 4% (2.4MEQ) 5ML VIAL IV ONE (11:57)
[2018-04-08] MEDS ORDERED: HEPARIN 1000 UNITS/ML 10ML ONE (11:57)
[2018-04-08 12:34] LABS: PLATELET ESTIMATE NORMAL
[2018-04-08] MEDS ORDERED: EPOETIN ALFA 4000UNITS/ML VIAL SUBCUT SCH (21:00)
== END 2018-04-08 16:58 | disposition home or self-care (01) | DRG 192 ==
LOC: ER 02:11 → 8WST 05:19 → EDBEDREQ 05:23 → EDBEDREQTM 05:23 → EDBEDREQ 06:20 → ENRESERV 14:47 → CANBEDREQ 15:43
PROVIDERS: ADMIT Internal Medicine; ATTEND Internal Medicine
PROC: 5A1D70Z Performance of Urinary Filtration, Intermittent, Less than 6 Hours Per Day (ICD-10-PCS; 2018-03-29)
PROC: 5A1D70Z Performance of Urinary Filtration, Intermittent, Less than 6 Hours Per Day (ICD-10-PCS; 2018-03-31)
PROC: 02PYX3Z Removal of Infusion Device from Great Vessel, External Approach (ICD-10-PCS; 2018-04-02)
PROC: 5A1D70Z Performance of Urinary Filtration, Intermittent, Less than 6 Hours Per Day (ICD-10-PCS; 2018-04-02)
PROC: 06HY33Z Insertion of Infusion Device into Lower Vein, Percutaneous Approach (ICD-10-PCS; 2018-04-03)
PROC: B54CZZA Ultrasonography of Left Lower Extremity Veins, Guidance (ICD-10-PCS; 2018-04-03)
PROC: 5A1D70Z Performance of Urinary Filtration, Intermittent, Less than 6 Hours Per Day (ICD-10-PCS; 2018-04-05)
PROC: 5A1D70Z Performance of Urinary Filtration, Intermittent, Less than 6 Hours Per Day (ICD-10-PCS; 2018-04-07)
PROC: 0JH63XZ Insertion of Tunneled Vascular Access Device into Chest Subcutaneous Tissue and Fascia, Percutaneous Approach (ICD-10-PCS; principal; 2018-04-08)
PROC: B2141ZZ Fluoroscopy of Right Heart using Low Osmolar Contrast (ICD-10-PCS; 2018-04-08)
PROC: 02H633Z Insertion of Infusion Device into Right Atrium, Percutaneous Approach (ICD-10-PCS; 2018-04-08)
PROC: B244ZZZ Ultrasonography of Right Heart (ICD-10-PCS; 2018-04-08)
DX: T82.7XXA Infection and inflammatory reaction due to other cardiac and vascular devices, implants and grafts, initial encounter (principal); A41.50 Gram-negative sepsis, unspecified; E43 Unspecified severe protein-calorie malnutrition; I13.2 Hypertensive heart and chronic kidney disease with heart failure and with stage 5 chronic kidney disease, or end stage renal disease; E87.2 Acidosis; N18.6 End stage renal disease; I27.20 Pulmonary hypertension, unspecified; E11.21 Type 2 diabetes mellitus with diabetic nephropathy; I50.9 Heart failure, unspecified; I25.10 Atherosclerotic heart disease of native coronary artery without angina pectoris; E11.22 Type 2 diabetes mellitus with diabetic chronic kidney disease; D63.1 Anemia in chronic kidney disease; H40.9 Unspecified glaucoma; E87.70 Fluid overload, unspecified; E11.36 Type 2 diabetes mellitus with diabetic cataract; H35.62 Retinal hemorrhage, left eye; H43.13 Vitreous hemorrhage, bilateral; H25.10 Age-related nuclear cataract, unspecified eye; F17.200 Nicotine dependence, unspecified, uncomplicated; E11.319 Type 2 diabetes mellitus with unspecified diabetic retinopathy without macular edema; Z83.3 Family history of diabetes mellitus; Z82.49 Family history of ischemic heart disease and other diseases of the circulatory system; Z99.2 Dependence on renal dialysis; Z98.61 Coronary angioplasty status; Z91.19 Patient's noncompliance with other medical treatment and regimen; Z86.73 Personal history of transient ischemic attack (TIA), and cerebral infarction without residual deficits; Z79.84 Long term (current) use of oral hypoglycemic drugs; I25.2 Old myocardial infarction; Z68.25 Body mass index [BMI] 25.0-25.9, adult; Y83.8 Other surgical procedures as the cause of abnormal reaction of the patient, or of later complication, without mention of misadventure at the time of the procedure; Y92.89 Other specified places as the place of occurrence of the external cause
CPT/HCPCS: 36415; 36556; 36558; 36589; 71045; 76937; 77001; 80048; 80053; 80061; 80202; 81003; 83605; 83735; 83880; 84145; 84484; 85025; 85610; 85730; 87040; 87077; 87086; 87186; 93005; 93306; 94640; 96365; 96367; 96375; 96376; 99291; C1750; C1752; C1893; J0360; J0692; J0885; J1200; J1644; J1650; J1956; J2270; J2405; J2543; J3010; J3370; J3490; J7030; J7040; J7060; J7620

== ENCOUNTER 2018-06-02 03:27 | Inpatient (IN) | payer MEDICAID ==
[~2018-06-02] VITALS: Ht 182.9 cm; Wt 63.5 kg
[~2018-06-02 03:27] MED LIST changes: -AMLO10TA80 PO; -ASPI-1159 PO; -CARI350T27 PO; -CLOP75TA33 PO; +COR6 PO; -HYDR-4134 PO; +HYDR100T26 PO; +LEVO500T2 PO; +LOSA50TA3 PO; +NIFE60TA64 PO
[2018-06-02] MEDS ORDERED: KETOROLAC 30MG/ML VIAL IV STA (03:52)
[2018-06-02] MEDS ORDERED: MAGNESIUM 1 G PREMIX 100 ML IV ONE (04:00)
[2018-06-02] MEDS ORDERED: CALCIUM GLUCONATE 100MG/ML 10ML VIAL IV ONE (04:00)
[2018-06-02 04:18] LABS: HEMOGLOBIN. 9.4 g/dL (14.0-18.0); MEAN CORPUSCULAR HEMOGLOBIN 22.9 pg (28.0-32.0); MEAN CORPUSCULAR VOLUME 70.7 fL (80.0-94.0); MEAN PLATELET VOLUME 9.3 fl (7.4-10.4); PLATELET 327 x1000/uL (130-400); RED CELL DISTRIBUTION WIDTH 20.8 % (11.6-14.6)
[2018-06-02 04:26] LABS: CHLORIDE 108 mEq/L (98-107); INR 1.3; PARTIAL THROMBOPLASTIN TIME 29.2 sec (23.4-31.0); PROTHROMBIN TIME 13.2 sec (9.1-11.1)
[2018-06-02] MEDS ORDERED: DIPHENHYDRAMINE 25MG CAPSULE PO ONE (05:00)
[2018-06-02] MEDS ORDERED: MORPHINE SULFATE 4 MG/ML CPJ (NOT FOR IM USE) IV ONE (05:00)
[2018-06-02] MEDS ORDERED: HEPARIN 5000 UNITS/ML VIAL IV SCH (05:00)
[2018-06-02] MEDS ORDERED: HEPARIN 25,000 UNITS PREMIX 500 ML IV PRN (05:00)
[2018-06-02 05:01] LABS: PLATELET ESTIMATE NORMAL
[2018-06-02] MEDS ORDERED: HEPARIN BOLUS PRN aPTT <30 IV (05:30)
[2018-06-02] MEDS ORDERED: HEPARIN BOLUS PRN aPTT 30-44 IV (05:30)
[2018-06-02] MEDS ORDERED: ACETAMINOPHEN 325MG TABLET PO PRN (08:30)
[2018-06-02] MEDS ORDERED: MAGNESIUM/ALUMINUM HYDROXIDE/SIMETHICONE 30ML UDC PO PRN (08:30)
[2018-06-02] MEDS ORDERED: LORAZEPAM 0.5MG TABLET PO PRN (08:30)
[2018-06-02] MEDS ORDERED: ACETAMINOPHEN 650MG/20.3ML UDC GT PRN (08:30)
[2018-06-02] MEDS ORDERED: ONDANSETRON HCL 4MG/2ML INJ IV PRN (08:30)
[2018-06-02] MEDS ORDERED: ACETAMINOPHEN 650MG SUPP PR PRN (08:30)
[2018-06-02] MEDS ORDERED: OXYCODONE HCL/ACETAMINOPHEN 5/325MG TABLET PO PRN (08:30)
[2018-06-02] MEDS: MORPHINE SULFATE 4 MG/ML CPJ (NOT FOR IM USE) IV PRN ×3 (10:55→20:27)
[2018-06-02] MEDS: DIPHENHYDRAMINE 50MG/ML VIAL IV PRN ×2 (10:55→18:35)
[2018-06-02] MEDS ORDERED: IOHEXOL-300 100 ML BOTTLE ONE (10:56)
[2018-06-02 12:00] VITALS: BP 123/82
[2018-06-02 12:10] VITALS: BP 123/82
[2018-06-02 12:38] LABS: AMMONIA 11 uMol/L (<32)
[2018-06-02] MEDS ORDERED: SODIUM BICARBONATE 4% (2.4MEQ) 5ML VIAL IV ONE (13:36)
[2018-06-02] MEDS ORDERED: LIDOCAINE HCL/PF 1% 10 MG/ML 5ML VIAL ONE (13:38)
[2018-06-02 16:39] VITALS: BP 146/89
[2018-06-02 20:00] VITALS: BP 150/94
[2018-06-02 20:54] LABS: CREATINE KINASE MB FRACTION 14.3 ng/mL (0.5-3.6)
[2018-06-02] MEDS: INSULIN LISPRO 100 UNITS/ML SUBCUT SCH (21:00)
[2018-06-02] MEDS: CARVEDILOL 6.25 MG TABLET PO SCH (21:41)
[2018-06-02] MEDS: BLOOD SUGAR DIAGNOSTIC STRIP TEST SCH (21:42)
[2018-06-02 21:54] LABS: HEPATITIS B SURFACE AB < 3.1 mIU/mL
[2018-06-02 22:03] LABS: CLARITY URINE CLEAR (CLEAR); COLOR URINE YELLOW (YELLOW); KETONES URINE NEGATIVE (NEGATIVE); LEUKOCYTE ESTERASE URINE NEGATIVE (NEGATIVE); NITRITE URINE NEGATIVE (NEGATIVE); OCCULT BLOOD URINE 2+ (NEGATIVE); PROTEIN URINE 4+ (NEGATIVE); SPECIFIC GRAVITY URINE 1.021 (1.005-1.030); UROBILINOGEN URINE 0.2 E.U./dL (0.2-1.0)
[2018-06-02 22:04] LABS: HEPATITIS B SURFACE ANTIGEN NEGATIVE
[2018-06-02 22:15] LABS: *AMPHETAMINES SCREEN URINE NEGATIVE (NEGATIVE); *BARBITURATES SCREEN URINE NEGATIVE (NEGATIVE); *BENZODIAZEPINES SCREEN URINE NEGATIVE (NEGATIVE); *COCAINE SCREEN URINE NEGATIVE (NEGATIVE); CANNABINOID URINE SCREEN NEGATIVE (NEGATIVE)
[2018-06-02 22:16] LABS: METHADONE URINE SCREEN NEGATIVE (NEGATIVE); OPIATES URINE SCREEN PRESUMTIVE POSITIVE (NEGATIVE); PHENCYCLIDINE URINE SCREEN NEGATIVE (NEGATIVE)
[2018-06-03] VITALS (8 sets, daily range): BP systolic 141–186; BP diastolic 84–112
[2018-06-03] MEDS: DIPHENHYDRAMINE 50MG/ML VIAL IV PRN ×4 (00:21→20:57)
[2018-06-03] MEDS: MORPHINE SULFATE 4 MG/ML CPJ (NOT FOR IM USE) IV PRN ×4 (01:34→22:32)
[2018-06-03] MEDS ORDERED: MEROPENEM 500 MG in SODIUM CHLORIDE 0.9% 50 ML IV SCH (05:45)
[2018-06-03] MEDS: MEROPENEM 500 MG in SODIUM CHLORIDE 0.9% 50 ML IV SCH (06:06)
[2018-06-03] MEDS: BLOOD SUGAR DIAGNOSTIC STRIP TEST SCH ×4 (06:06→20:52)
[2018-06-03] MEDS: INSULIN LISPRO 100 UNITS/ML SUBCUT SCH ×4 (06:08→20:58)
[2018-06-03] MEDS: FOLIC ACID/VITAMIN B COMP W-C TABLET PO SCH ×2 (08:56→11:56)
[2018-06-03] MEDS: LOSARTAN POTASSIUM 50 MG TABLET PO SCH ×2 (08:56→10:03)
[2018-06-03] MEDS: ASPIRIN 81MG EC TABLET PO SCH (08:56)
[2018-06-03] MEDS ORDERED: HEPARIN SODIUM 1,000 UNIT/1ML VIAL IV NR (09:30)
[2018-06-03 09:31] LABS: HEMATOCRIT. 28.8 % (42.0-52.0); HEMOGLOBIN. 9.4 g/dL (14.0-18.0); MEAN CORPUSCULAR HEMOGLOBIN 23.2 pg (28.0-32.0); MEAN CORPUSCULAR VOLUME 70.8 fL (80.0-94.0); MEAN PLATELET VOLUME 9.1 fl (7.4-10.4); PLATELET 311 x1000/uL (130-400); RED BLOOD CELL COUNT 4.07 mill/uL (4.7-6.1); RED CELL DISTRIBUTION WIDTH 20.6 % (11.6-14.6)
[2018-06-03 09:49] LABS: AMMONIA 36 uMol/L (<32); CHLORIDE 107 mEq/L (98-107)
[2018-06-03 10:01] LABS: T4 FREE 1.02 ng/dL (0.76-1.46)
[2018-06-03] MEDS: CARVEDILOL 6.25 MG TABLET PO SCH ×2 (10:03→20:57)
[2018-06-03 10:12] LABS: HDL CHOLESTEROL 49 mg/dL (40-59)
[2018-06-03 10:16] LABS: LDL CHOLESTEROL 52 mg/dL (5-100)
[2018-06-03 10:17] LABS: CREATINE KINASE MB FRACTION 12.5 ng/mL (0.5-3.6)
[2018-06-03 10:31] LABS: CREATINE KINASE 2334 IU/L (39-308)
[2018-06-03] MEDS ORDERED: HYDRALAZINE HCL 100MG TABLET PO SCH (11:00)
[2018-06-03 12:40] LABS: PHOSPHORUS 8.4 mg/dL (2.5-4.9)
[2018-06-03 13:30] LABS: NUCLEATED RED BLOOD CELLS 1 /100 WBC; PLATELET ESTIMATE NORMAL
[2018-06-03] MEDS: HYDRALAZINE HCL 100MG TABLET PO SCH (20:58)
[2018-06-04] VITALS (7 sets, daily range): BP systolic 150–180; BP diastolic 89–103
[2018-06-04] MEDS: MORPHINE SULFATE 4 MG/ML CPJ (NOT FOR IM USE) IV PRN ×6 (04:50→21:31)
[2018-06-04] MEDS: HYDRALAZINE HCL 100MG TABLET PO SCH ×3 (05:05→21:31)
[2018-06-04] MEDS: MEROPENEM 500 MG in SODIUM CHLORIDE 0.9% 50 ML IV SCH (05:46)
[2018-06-04] MEDS: DIPHENHYDRAMINE 50MG/ML VIAL IV PRN ×3 (05:46→19:41)
[2018-06-04] MEDS: INSULIN LISPRO 100 UNITS/ML SUBCUT SCH ×4 (06:11→20:53)
[2018-06-04] MEDS: BLOOD SUGAR DIAGNOSTIC STRIP TEST SCH ×4 (06:11→20:53)
[2018-06-04 07:11] LABS: HEMATOCRIT. 27.9 % (42.0-52.0); HEMOGLOBIN. 9.2 g/dL (14.0-18.0); MEAN CORPUSCULAR HEMOGLOBIN 23.2 pg (28.0-32.0); MEAN CORPUSCULAR VOLUME 70.3 fL (80.0-94.0); PLATELET 285 x1000/uL (130-400); RED BLOOD CELL COUNT 3.96 mill/uL (4.7-6.1); RED CELL DISTRIBUTION WIDTH 20.5 % (11.6-14.6)
[2018-06-04 07:15] LABS: PHOSPHORUS 6.3 mg/dL (2.5-4.9)
[2018-06-04] MEDS: CARVEDILOL 6.25 MG TABLET PO SCH (08:23)
[2018-06-04] MEDS: ASPIRIN 81MG EC TABLET PO SCH (08:23)
[2018-06-04] MEDS: LOSARTAN POTASSIUM 50 MG TABLET PO SCH ×2 (08:30→17:12)
[2018-06-04 10:32] LABS: NUCLEATED RED BLOOD CELLS 1 /100 WBC; PLATELET ESTIMATE NORMAL
[2018-06-04 10:35] LABS: AMMONIA 55 uMol/L (<32)
[2018-06-04] MEDS ORDERED: HEPARIN SODIUM 1,000 UNIT/1ML VIAL IV NR (16:00)
[2018-06-04] MEDS: CARVEDILOL 12.5MG TABLET PO SCH (20:49)
[2018-06-04] MEDS: CLONIDINE 0.2MG TABLET PO SCH (20:50)
[2018-06-05] VITALS (43 sets, daily range): BP systolic 125–193; BP diastolic 67–125
[2018-06-05] MEDS: MORPHINE SULFATE 4 MG/ML CPJ (NOT FOR IM USE) IV PRN ×3 (01:21→10:09)
[2018-06-05] MEDS: IPRATROPIUM/ALBUTEROL 0.5-3(2.5)MG/3ML NEB INH SCH ×4 (01:40→20:23)
[2018-06-05] MEDS: DIPHENHYDRAMINE 50MG/ML VIAL IV PRN ×2 (03:16→08:23)
[2018-06-05] MEDS: CLONIDINE 0.2MG TABLET PO SCH ×3 (04:00→20:00)
[2018-06-05] MEDS: HYDRALAZINE HCL 100MG TABLET PO SCH ×2 (06:00→21:58)
[2018-06-05] MEDS: BLOOD SUGAR DIAGNOSTIC STRIP TEST SCH ×4 (06:13→20:40)
[2018-06-05] MEDS: INSULIN LISPRO 100 UNITS/ML SUBCUT SCH ×4 (06:13→20:40)
[2018-06-05] MEDS: MEROPENEM 500 MG in SODIUM CHLORIDE 0.9% 50 ML IV SCH (06:21)
[2018-06-05 06:57] LABS: AMMONIA 27 uMol/L (<32)
[2018-06-05 07:06] LABS: HEMOGLOBIN. 9.1 g/dL (14.0-18.0); MEAN CORPUSCULAR HEMOGLOBIN 23.5 pg (28.0-32.0); MEAN CORPUSCULAR VOLUME 70.1 fL (80.0-94.0); MEAN PLATELET VOLUME 9.2 fl (7.4-10.4); PLATELET 251 x1000/uL (130-400); RED BLOOD CELL COUNT 3.86 mill/uL (4.7-6.1)
[2018-06-05] MEDS: LOSARTAN POTASSIUM 50 MG TABLET PO SCH (08:27)
[2018-06-05] MEDS: ASPIRIN 81MG EC TABLET PO SCH (08:27)
[2018-06-05] MEDS: CARVEDILOL 12.5MG TABLET PO SCH ×2 (08:28→21:57)
[2018-06-05] MEDS: FOLIC ACID/VITAMIN B COMP W-C TABLET PO SCH (08:28)
[2018-06-05] MEDS ORDERED: BALANCED SALT IRRIG SOLN COMB1 500ML OP ONE (11:30)
[2018-06-05] MEDS ORDERED: SODIUM CHLORIDE 0.9% 1,000 ML IV SCH (12:14)
[2018-06-05] MEDS ORDERED: ATROPINE SULFATE 1MG/10ML SYR IV PRN (12:15)
[2018-06-05] MEDS ORDERED: HYDROMORPHONE HCL/PF 2MG/ML CPJ IV PRN (12:15)
[2018-06-05] MEDS ORDERED: MEPERIDINE HCL/PF 25MG/ML CPJ IV PRN (12:15)
[2018-06-05] MEDS ORDERED: ONDANSETRON HCL 4MG/2ML INJ IV PRN (12:15)
[2018-06-05] MEDS ORDERED: FENTANYL CITRATE/PF 50MCG/ML 2ML VIAL IV PRN (12:15)
[2018-06-05] MEDS ORDERED: MIDAZOLAM HCL 2 MG/2 ML VIAL ONE (12:33)
[2018-06-05] MEDS ORDERED: PROPOFOL 200MG/20ML VIAL IV ONE (12:33)
[2018-06-05] MEDS ORDERED: LIDOCAINE HCL/PF 1% 10 MG/ML 5ML VIAL ONE (12:49)
[2018-06-05] MEDS ORDERED: NORMAL SALINE 0.9% 10 ML SYR ONE (13:14)
[2018-06-05] MEDS ORDERED: ATROPINE SULFATE 1MG/10ML SYR ONE (13:39)
[2018-06-05 14:34] LABS: BG BASE EXCESS -3.7 mmol/L (-2.0-2.0); BG CARBOXYHEMOGLOBIN 0.8 % (0.5-1.5); BG DEOXYHEMOGLOBIN 1.6 % (0.0-5.0); BG FRACTION INSPIRED OXYGEN 50; BG HCO3 ACT 20.7 mmol/L (22.0-26.0); BG METHEMOGLOBIN 0.4 % (0.0-1.5); BG OXYGEN SATURATION 98.4 % (92.0-98.5); BG OXYHEMOGLOBIN 97.2 % (94.0-97.0); BG PCO2 34.7 mmHg (35.0-45.0); BG PH 7.393 (7.350-7.450); BG PO2 134.8 mmHg (75.0-100.0); BG SAMPLE SITE RIGHT BRACHIAL; BG TIDAL VOLUME(mL) 500 mL; BG TOTAL HEMOGLOBIN 9.6 g/dL (12.0-18.0); BG VENT MODE VENT - A/C; BG VENT RATE 14 set
[2018-06-05] MEDS: PROPOFOL 10MG/ML 100ML 100 ML IV PRN ×2 (14:53→22:27)
[2018-06-05] MEDS ORDERED: EPINEPHRINE 0.1MG/ML (1:10,000) 10ML SYR ONE (15:11)
[2018-06-05 15:15] LABS: HEMATOCRIT. 30.3 % (42.0-52.0); HEMOGLOBIN. 9.9 g/dL (14.0-18.0); MEAN CORPUSCULAR HEMOGLOBIN 23.2 pg (28.0-32.0); MEAN CORPUSCULAR VOLUME 71.2 fL (80.0-94.0); MEAN PLATELET VOLUME 8.9 fl (7.4-10.4); PLATELET 252 x1000/uL (130-400); RED BLOOD CELL COUNT 4.25 mill/uL (4.7-6.1); RED CELL DISTRIBUTION WIDTH 21.7 % (11.6-14.6)
[2018-06-05 15:18] LABS: CHLORIDE 106 mEq/L (98-107)
[2018-06-05 15:27] LABS: PHOSPHORUS 6.3 mg/dL (2.5-4.9)
[2018-06-05] MEDS ORDERED: HYDRALAZINE 20MG/ML VIAL IV NR (16:30)
[2018-06-05] MEDS ORDERED: HYDRALAZINE 20MG/ML VIAL IV PRN (16:45)
[2018-06-05] MEDS ORDERED: FLUMAZENIL 0.1 MG/ML 5ML VIAL IV NR ×2 (17:00)
[2018-06-05 17:25] LABS: HEMATOCRIT. 34.4 % (42.0-52.0); HEMOGLOBIN. 11.2 g/dL (14.0-18.0); MEAN CORPUSCULAR HEMOGLOBIN 23.2 pg (28.0-32.0); MEAN PLATELET VOLUME 9.2 fl (7.4-10.4); PLATELET 281 x1000/uL (130-400); RED BLOOD CELL COUNT 4.84 mill/uL (4.7-6.1); RED CELL DISTRIBUTION WIDTH 21.1 % (11.6-14.6)
[2018-06-05 17:30] LABS: CHLORIDE 105 mEq/L (98-107)
[2018-06-05] MEDS ORDERED: NICARDIPINE 50 MG in SODIUM CHLORIDE 0.9% 230 ML IV PRN (17:30)
[2018-06-05 17:33] LABS: INR 1.1; PARTIAL THROMBOPLASTIN TIME 23.6 sec (23.4-31.0)
[2018-06-05 21:23] LABS: PLATELET ESTIMATE NORMAL
[2018-06-05 21:33] LABS: PLATELET ESTIMATE NORMAL
[2018-06-05 21:50] LABS: PLATELET ESTIMATE NORMAL
[2018-06-06] VITALS (97 sets, daily range): BP systolic 107–177; BP diastolic 61–106
[2018-06-06] MEDS: IPRATROPIUM/ALBUTEROL 0.5-3(2.5)MG/3ML NEB INH SCH ×4 (01:55→19:58)
[2018-06-06] MEDS: CLONIDINE 0.2MG TABLET PO SCH ×3 (03:05→20:36)
[2018-06-06 05:18] LABS: HEMATOCRIT. 34.9 % (42.0-52.0); HEMOGLOBIN. 11.2 g/dL (14.0-18.0); MEAN CORPUSCULAR HEMOGLOBIN 22.7 pg (28.0-32.0); MEAN CORPUSCULAR VOLUME 70.8 fL (80.0-94.0); MEAN PLATELET VOLUME 9.4 fl (7.4-10.4); PLATELET 294 x1000/uL (130-400); RED BLOOD CELL COUNT 4.93 mill/uL (4.7-6.1); RED CELL DISTRIBUTION WIDTH 21.1 % (11.6-14.6)
[2018-06-06] MEDS: HYDRALAZINE HCL 100MG TABLET PO SCH ×3 (05:21→22:24)
[2018-06-06] MEDS: MEROPENEM 500 MG in SODIUM CHLORIDE 0.9% 50 ML IV SCH (05:21)
[2018-06-06] MEDS: PROPOFOL 10MG/ML 100ML 100 ML IV PRN ×2 (05:44→15:09)
[2018-06-06] MEDS: INSULIN LISPRO 100 UNITS/ML SUBCUT SCH ×4 (05:54→20:36)
[2018-06-06] MEDS: BLOOD SUGAR DIAGNOSTIC STRIP TEST SCH ×4 (05:54→20:36)
[2018-06-06 08:27] LABS: BG BASE EXCESS -2.5 mmol/L (-2.0-2.0); BG CARBOXYHEMOGLOBIN 1.1 % (0.5-1.5); BG DEOXYHEMOGLOBIN 8.2 % (0.0-5.0); BG FRACTION INSPIRED OXYGEN 40; BG HCO3 ACT 22.3 mmol/L (22.0-26.0); BG METHEMOGLOBIN 0.3 % (0.0-1.5); BG OXYGEN SATURATION 91.7 % (92.0-98.5); BG OXYHEMOGLOBIN 90.4 % (94.0-97.0); BG PCO2 38.4 mmHg (35.0-45.0); BG PH 7.382 (7.350-7.450); BG PO2 66.1 mmHg (75.0-100.0); BG SAMPLE SITE RIGHT RADIAL; BG TIDAL VOLUME(mL) 500 mL; BG TOTAL HEMOGLOBIN 10.7 g/dL (12.0-18.0); BG VENT MODE VENT - A/C; BG VENT RATE 14 set
[2018-06-06] MEDS: LOSARTAN POTASSIUM 50 MG TABLET PO SCH ×2 (09:00→17:54)
[2018-06-06] MEDS: ASPIRIN 81MG EC TABLET PO SCH (09:00)
[2018-06-06] MEDS: CARVEDILOL 12.5MG TABLET PO SCH ×2 (09:04→20:36)
[2018-06-06] MEDS: FOLIC ACID/VITAMIN B COMP W-C TABLET PO SCH (09:04)
[2018-06-06] MEDS ORDERED: PROPOFOL 10MG/ML 100ML 100 ML IV PRN (09:50)
[2018-06-06] MEDS: ASPIRIN 81MG TABLET NG SCH (12:30)
[2018-06-06] MEDS: PANTOPRAZOLE SODIUM 40 MG/VIAL IV SCH (12:30)
[2018-06-06 12:57] LABS: PLATELET ESTIMATE NORMAL
[2018-06-06] MEDS: LEVETIRACETAM 500 MG in SODIUM CHLORIDE 0.9% 100 ML IV SCH (13:17)
[2018-06-06] MEDS ORDERED: VANCOMYCIN 1500MG in DEXTROSE 5% WATER 250ML IV SCH (16:00)
[2018-06-07] VITALS (71 sets, daily range): BP systolic 114–165; BP diastolic 64–99
[2018-06-07] MEDS: LEVETIRACETAM 500 MG in SODIUM CHLORIDE 0.9% 100 ML IV SCH ×2 (00:34→12:57)
[2018-06-07] MEDS: PROPOFOL 10MG/ML 100ML 100 ML IV PRN (00:35)
[2018-06-07] MEDS: IPRATROPIUM/ALBUTEROL 0.5-3(2.5)MG/3ML NEB INH SCH ×4 (01:30→20:22)
[2018-06-07] MEDS: CLONIDINE 0.2MG TABLET PO SCH ×3 (04:21→20:02)
[2018-06-07 05:44] LABS: HEMATOCRIT. 28.7 % (42.0-52.0); HEMOGLOBIN. 9.2 g/dL (14.0-18.0); MEAN CORPUSCULAR HEMOGLOBIN 22.9 pg (28.0-32.0); MEAN CORPUSCULAR VOLUME 71.3 fL (80.0-94.0); MEAN PLATELET VOLUME 9.5 fl (7.4-10.4); PLATELET 245 x1000/uL (130-400); RED BLOOD CELL COUNT 4.03 mill/uL (4.7-6.1); RED CELL DISTRIBUTION WIDTH 21.2 % (11.6-14.6)
[2018-06-07] MEDS: MEROPENEM 500 MG in SODIUM CHLORIDE 0.9% 50 ML IV SCH (05:45)
[2018-06-07] MEDS: HYDRALAZINE HCL 100MG TABLET PO SCH ×3 (05:45→21:52)
[2018-06-07] MEDS: BLOOD SUGAR DIAGNOSTIC STRIP TEST SCH ×4 (05:45→20:16)
[2018-06-07] MEDS: INSULIN LISPRO 100 UNITS/ML SUBCUT SCH ×4 (06:38→20:23)
[2018-06-07] MEDS ORDERED: HEPARIN SODIUM 1,000 UNIT/1ML VIAL IV NR (08:15)
[2018-06-07] MEDS: PANTOPRAZOLE SODIUM 40 MG/VIAL IV SCH (08:42)
[2018-06-07] MEDS: FOLIC ACID/VITAMIN B COMP W-C TABLET PO SCH (08:42)
[2018-06-07] MEDS: ASPIRIN 81MG TABLET NG SCH (09:00)
[2018-06-07] MEDS: CARVEDILOL 12.5MG TABLET PO SCH ×2 (09:00→20:02)
[2018-06-07] MEDS: LOSARTAN POTASSIUM 50 MG TABLET PO SCH ×2 (09:00→17:41)
[2018-06-07 09:52] LABS: PLATELET ESTIMATE NORMAL
[2018-06-07] MEDS: ENOXAPARIN 30MG/0.3ML SYR SUBCUT SCH (10:00)
[2018-06-07 10:28] LABS: BG BASE EXCESS -0.1 mmol/L (-2.0-2.0); BG CARBOXYHEMOGLOBIN 0.6 % (0.5-1.5); BG DEOXYHEMOGLOBIN 5.4 % (0.0-5.0); BG FRACTION INSPIRED OXYGEN 40; BG HCO3 ACT 24.6 mmol/L (22.0-26.0); BG METHEMOGLOBIN 0.3 % (0.0-1.5); BG OXYGEN SATURATION 94.6 % (92.0-98.5); BG OXYHEMOGLOBIN 93.7 % (94.0-97.0); BG PCO2 40.2 mmHg (35.0-45.0); BG PH 7.404 (7.350-7.450); BG PO2 78.7 mmHg (75.0-100.0); BG SAMPLE SITE RIGHT BRACHIAL; BG TIDAL VOLUME(mL) 500 mL; BG TOTAL HEMOGLOBIN 10.7 g/dL (12.0-18.0); BG VENT MODE VENT - A/C; BG VENT RATE 14 set
[2018-06-07] MEDS ORDERED: VANCOMYCIN 1 G PREMIX 200 ML IV NR (12:00)
[2018-06-07 16:43] LABS: BG BASE EXCESS -1.2 mmol/L (-2.0-2.0); BG CARBOXYHEMOGLOBIN 0.6 % (0.5-1.5); BG FRACTION INSPIRED OXYGEN 40; BG HCO3 ACT 24.1 mmol/L (22.0-26.0); BG METHEMOGLOBIN 0.3 % (0.0-1.5); BG OXYHEMOGLOBIN 98.1 % (94.0-97.0); BG PCO2 43.1 mmHg (35.0-45.0); BG PH 7.366 (7.350-7.450); BG PO2 170.9 mmHg (75.0-100.0); BG PRESSURE SUPPORT 8; BG SAMPLE SITE RIGHT RADIAL; BG TOTAL HEMOGLOBIN 10.3 g/dL (12.0-18.0); BG VENT MODE VENT - CPAP
[2018-06-08] VITALS (42 sets, daily range): BP systolic 132–169; BP diastolic 78–103
[2018-06-08] MEDS: LEVETIRACETAM 500 MG in SODIUM CHLORIDE 0.9% 100 ML IV SCH ×2 (01:25→13:23)
[2018-06-08] MEDS: MORPHINE SULFATE 4 MG/ML CPJ (NOT FOR IM USE) IV PRN (01:26)
[2018-06-08] MEDS ORDERED: LORAZEPAM 2MG/ML CPJ IV PRN (01:30)
[2018-06-08] MEDS: IPRATROPIUM/ALBUTEROL 0.5-3(2.5)MG/3ML NEB INH SCH ×4 (02:19→20:25)
[2018-06-08] MEDS: CLONIDINE 0.2MG TABLET PO SCH ×3 (04:04→20:00)
[2018-06-08 05:29] LABS: HEMATOCRIT. 32.2 % (42.0-52.0); HEMOGLOBIN. 10.3 g/dL (14.0-18.0); RED BLOOD CELL COUNT 4.47 mill/uL (4.7-6.1); RED CELL DISTRIBUTION WIDTH 21.7 % (11.6-14.6)
[2018-06-08] MEDS: MEROPENEM 500 MG in SODIUM CHLORIDE 0.9% 50 ML IV SCH (05:34)
[2018-06-08] MEDS: BLOOD SUGAR DIAGNOSTIC STRIP TEST SCH ×4 (05:34→20:21)
[2018-06-08] MEDS: HYDRALAZINE HCL 100MG TABLET PO SCH ×3 (06:00→22:31)
[2018-06-08] MEDS: INSULIN LISPRO 100 UNITS/ML SUBCUT SCH ×4 (07:00→16:44)
[2018-06-08] MEDS: PANTOPRAZOLE SODIUM 40 MG/VIAL IV SCH (09:31)
[2018-06-08] MEDS: LOSARTAN POTASSIUM 50 MG TABLET PO SCH ×2 (09:31→16:54)
[2018-06-08] MEDS: FOLIC ACID/VITAMIN B COMP W-C TABLET PO SCH (09:32)
[2018-06-08] MEDS: CARVEDILOL 12.5MG TABLET PO SCH ×2 (09:32→20:16)
[2018-06-08] MEDS: ASPIRIN 81MG TABLET NG SCH (09:33)
[2018-06-08] MEDS: ENOXAPARIN 30MG/0.3ML SYR SUBCUT SCH (09:35)
[2018-06-08 09:40] LABS: BG BASE EXCESS -0.7 mmol/L (-2.0-2.0); BG CARBOXYHEMOGLOBIN 0.7 % (0.5-1.5); BG DEOXYHEMOGLOBIN 0.8 % (0.0-5.0); BG FRACTION INSPIRED OXYGEN 40; BG HCO3 ACT 22.5 mmol/L (22.0-26.0); BG METHEMOGLOBIN 0.2 % (0.0-1.5); BG OXYGEN SATURATION 99.2 % (92.0-98.5); BG OXYHEMOGLOBIN 98.3 % (94.0-97.0); BG PCO2 32.1 mmHg (35.0-45.0); BG PH 7.464 (7.350-7.450); BG PO2 216.4 mmHg (75.0-100.0); BG PRESSURE SUPPORT 8; BG SAMPLE SITE RIGHT BRACHIAL; BG TOTAL HEMOGLOBIN 10.8 g/dL (12.0-18.0); BG VENT MODE VENT - CPAP
[2018-06-08 11:46] LABS: PLATELET 241 x1000/uL (130-400)
[2018-06-08 11:51] LABS: PLATELET ESTIMATE NORMAL
[2018-06-08] MEDS ORDERED: CLONIDINE 0.1MG TABLET PO SCH (14:00)
[2018-06-09] VITALS (54 sets, daily range): BP systolic 139–190; BP diastolic 78–113
[2018-06-09] MEDS: IPRATROPIUM/ALBUTEROL 0.5-3(2.5)MG/3ML NEB INH SCH ×4 (00:50→14:02)
[2018-06-09] MEDS: LEVETIRACETAM 500 MG in SODIUM CHLORIDE 0.9% 100 ML IV SCH ×2 (01:01→12:52)
[2018-06-09] MEDS: MORPHINE SULFATE 4 MG/ML CPJ (NOT FOR IM USE) IV PRN (05:29)
[2018-06-09] MEDS: MEROPENEM 500 MG in SODIUM CHLORIDE 0.9% 50 ML IV SCH (05:30)
[2018-06-09 05:59] LABS: HEMATOCRIT. 30.6 % (42.0-52.0); MEAN CORPUSCULAR HEMOGLOBIN 23.3 pg (28.0-32.0); MEAN CORPUSCULAR VOLUME 71.1 fL (80.0-94.0); MEAN PLATELET VOLUME 9.6 fl (7.4-10.4); PLATELET 270 x1000/uL (130-400); RED CELL DISTRIBUTION WIDTH 21.4 % (11.6-14.6)
[2018-06-09] MEDS: HYDRALAZINE HCL 100MG TABLET PO SCH ×3 (06:00→22:20)
[2018-06-09] MEDS: BLOOD SUGAR DIAGNOSTIC STRIP TEST SCH ×4 (06:30→21:41)
[2018-06-09] MEDS: INSULIN LISPRO 100 UNITS/ML SUBCUT SCH ×4 (07:00→21:00)
[2018-06-09] MEDS: CLONIDINE 0.2MG TABLET PO SCH ×3 (07:47→20:31)
[2018-06-09] MEDS ORDERED: HYDRALAZINE 20MG/ML VIAL IV NR (08:45)
[2018-06-09] MEDS: ASPIRIN 81MG TABLET NG SCH (09:00)
[2018-06-09] MEDS: FOLIC ACID/VITAMIN B COMP W-C TABLET PO SCH (09:00)
[2018-06-09] MEDS: PANTOPRAZOLE SODIUM 40 MG/VIAL IV SCH (09:02)
[2018-06-09] MEDS: ENOXAPARIN 30MG/0.3ML SYR SUBCUT SCH (09:03)
[2018-06-09 09:10] LABS: PLATELET ESTIMATE NORMAL
[2018-06-09] MEDS ORDERED: MORPHINE SULFATE 4 MG/ML CPJ (NOT FOR IM USE) IV PRN (10:00)
[2018-06-09] MEDS ORDERED: HEPARIN SODIUM 1,000 UNIT/1ML VIAL IV SCH (10:00)
[2018-06-09] MEDS: NIFEDIPINE XL 30MG TAB PO SCH (10:30)
[2018-06-09] MEDS: CARVEDILOL 12.5MG TABLET PO SCH ×2 (10:56→22:21)
[2018-06-09] MEDS: ENALAPRIL 2.5MG/2ML VIAL 2ML IV SCH ×2 (12:52→17:16)
[2018-06-09] MEDS: HYDRALAZINE 20MG/ML VIAL IV PRN (15:22)
[2018-06-09] MEDS ORDERED: VANCOMYCIN 500 MG PREMIX 100 ML IV SCH (21:00)
[2018-06-09] MEDS: NITROGLYCERIN OINT 1GM/INCH UDPKT TD SCH (22:27)
[2018-06-10] VITALS (11 sets, daily range): BP systolic 124–173; BP diastolic 64–96
[2018-06-10] MEDS: ENALAPRIL 2.5MG/2ML VIAL 2ML IV SCH ×4 (00:47→18:57)
[2018-06-10] MEDS: LEVETIRACETAM 500 MG in SODIUM CHLORIDE 0.9% 100 ML IV SCH ×2 (01:18→12:37)
[2018-06-10] MEDS: HYDRALAZINE 20MG/ML VIAL IV PRN ×3 (01:28→18:48)
[2018-06-10] MEDS: IPRATROPIUM/ALBUTEROL 0.5-3(2.5)MG/3ML NEB INH SCH ×4 (02:00→21:15)
[2018-06-10] MEDS: CLONIDINE 0.2MG TABLET PO SCH ×3 (03:31→20:00)
[2018-06-10 06:35] LABS: HEMOGLOBIN. 10.4 g/dL (14.0-18.0); MEAN CORPUSCULAR HEMOGLOBIN 23.1 pg (28.0-32.0); MEAN PLATELET VOLUME 9.6 fl (7.4-10.4); PLATELET 282 x1000/uL (130-400); RED BLOOD CELL COUNT 4.51 mill/uL (4.7-6.1); RED CELL DISTRIBUTION WIDTH 21.3 % (11.6-14.6)
[2018-06-10] MEDS: NITROGLYCERIN OINT 1GM/INCH UDPKT TD SCH ×3 (06:41→22:00)
[2018-06-10] MEDS: MEROPENEM 500 MG in SODIUM CHLORIDE 0.9% 50 ML IV SCH (06:42)
[2018-06-10] MEDS: HYDRALAZINE HCL 100MG TABLET PO SCH ×3 (06:42→22:00)
[2018-06-10] MEDS: DEXTROSE 50% WATER 50ML SYRINGE IV PRN (07:16)
[2018-06-10] MEDS: BLOOD SUGAR DIAGNOSTIC STRIP TEST SCH ×4 (07:30→21:00)
[2018-06-10 07:52] LABS: PLATELET ESTIMATE NORMAL
[2018-06-10] MEDS: INSULIN LISPRO 100 UNITS/ML SUBCUT SCH ×4 (08:00→21:00)
[2018-06-10] MEDS: ASPIRIN 81MG TABLET NG SCH (09:39)
[2018-06-10] MEDS: PANTOPRAZOLE SODIUM 40 MG/VIAL IV SCH (09:39)
[2018-06-10] MEDS: NIFEDIPINE XL 30MG TAB PO SCH (09:39)
[2018-06-10] MEDS: ENOXAPARIN 30MG/0.3ML SYR SUBCUT SCH (09:40)
[2018-06-10] MEDS: LOSARTAN POTASSIUM 100 MG TABLET PO SCH (09:41)
[2018-06-10] MEDS: FOLIC ACID/VITAMIN B COMP W-C TABLET PO SCH (09:43)
[2018-06-10] MEDS: CARVEDILOL 12.5MG TABLET PO SCH ×2 (09:52→21:00)
[2018-06-10] MEDS: CLOPIDOGREL 75MG TABLET PO SCH ×2 (15:00→15:29)
[2018-06-10] MEDS ORDERED: DEXTROSE 5% WATER 1,000 ML IV SCH (15:00)
[2018-06-10] MEDS: ATORVASTATIN CALCIUM 40MG TABLET PO SCH (21:00)
[2018-06-11] VITALS: BP 178/81
[2018-06-11] MEDS: ENALAPRIL 2.5MG/2ML VIAL 2ML IV SCH ×4 (01:29→17:14)
[2018-06-11] MEDS: LEVETIRACETAM 500 MG in SODIUM CHLORIDE 0.9% 100 ML IV SCH ×2 (03:36→13:06)
[2018-06-11 04:00] VITALS: BP 177/90
[2018-06-11] MEDS: CLONIDINE 0.2MG TABLET PO SCH ×3 (04:59→20:00)
[2018-06-11] MEDS: MEROPENEM 500 MG in SODIUM CHLORIDE 0.9% 50 ML IV SCH (05:00)
[2018-06-11] MEDS: NITROGLYCERIN OINT 1GM/INCH UDPKT TD SCH ×3 (05:01→21:28)
[2018-06-11] MEDS: BLOOD SUGAR DIAGNOSTIC STRIP TEST SCH ×4 (05:02→21:00)
[2018-06-11] MEDS: HYDRALAZINE HCL 100MG TABLET PO SCH ×4 (05:05→21:44)
[2018-06-11 07:26] LABS: PARTIAL THROMBOPLASTIN TIME 28.2 sec (23.4-31.0); PROTHROMBIN TIME 10.5 sec (9.1-11.1)
[2018-06-11 07:31] LABS: HEMOGLOBIN. 10.5 g/dL (14.0-18.0); MEAN CORPUSCULAR HEMOGLOBIN 22.5 pg (28.0-32.0); MEAN CORPUSCULAR VOLUME 70.5 fL (80.0-94.0); MEAN PLATELET VOLUME 9.5 fl (7.4-10.4); PLATELET 306 x1000/uL (130-400); RED BLOOD CELL COUNT 4.69 mill/uL (4.7-6.1); RED CELL DISTRIBUTION WIDTH 20.9 % (11.6-14.6)
[2018-06-11] MEDS: INSULIN LISPRO 100 UNITS/ML SUBCUT SCH (07:34)
[2018-06-11 08:00] VITALS: BP 157/68
[2018-06-11] MEDS: IPRATROPIUM/ALBUTEROL 0.5-3(2.5)MG/3ML NEB INH SCH ×3 (08:19→21:30)
[2018-06-11] MEDS: FOLIC ACID/VITAMIN B COMP W-C TABLET PO SCH (09:00)
[2018-06-11] MEDS: CARVEDILOL 12.5MG TABLET PO SCH ×3 (09:00→21:29)
[2018-06-11] MEDS: LOSARTAN POTASSIUM 100 MG TABLET PO SCH (09:00)
[2018-06-11] MEDS: NIFEDIPINE XL 30MG TAB PO SCH (09:00)
[2018-06-11] MEDS: PANTOPRAZOLE SODIUM 40 MG/VIAL IV SCH (09:00)
[2018-06-11 09:22] LABS: CHLORIDE 104 mEq/L (98-107)
[2018-06-11 09:59] LABS: PLATELET ESTIMATE NORMAL
[2018-06-11] MEDS: DEXTROSE 50% WATER 50ML SYRINGE IV PRN ×2 (10:06→17:21)
[2018-06-11 12:00] VITALS: BP 163/89
[2018-06-11] MEDS ORDERED: DEXTROSE 10% WATER 500 ML IV SCH (12:45)
[2018-06-11 16:00] VITALS: BP 171/88
[2018-06-11] MEDS: DEXT 10% WATER 1,000 ML IV SCH (17:07)
[2018-06-11] MEDS: ATORVASTATIN CALCIUM 40MG TABLET PO SCH ×2 (21:00→21:29)
[2018-06-11] MEDS: DIPHENHYDRAMINE 50MG/ML VIAL IV PRN (21:31)
[2018-06-12] VITALS: BP 191/118
[2018-06-12] MEDS: ENALAPRIL 2.5MG/2ML VIAL 2ML IV SCH ×4 (00:24→17:55)
[2018-06-12] MEDS: IPRATROPIUM/ALBUTEROL 0.5-3(2.5)MG/3ML NEB INH SCH ×4 (02:51→21:23)
[2018-06-12] MEDS: LEVETIRACETAM 500 MG in SODIUM CHLORIDE 0.9% 100 ML IV SCH ×2 (03:33→13:12)
[2018-06-12 04:00] VITALS: BP 179/95
[2018-06-12] MEDS: CLONIDINE 0.2MG TABLET PO SCH ×3 (04:00→20:20)
[2018-06-12] MEDS: HYDRALAZINE 20MG/ML VIAL IV PRN (05:18)
[2018-06-12] MEDS: MEROPENEM 500 MG in SODIUM CHLORIDE 0.9% 50 ML IV SCH (05:57)
[2018-06-12] MEDS: HYDRALAZINE HCL 100MG TABLET PO SCH ×3 (05:58→22:37)
[2018-06-12] MEDS: NITROGLYCERIN OINT 1GM/INCH UDPKT TD SCH ×3 (05:58→22:37)
[2018-06-12] MEDS: BLOOD SUGAR DIAGNOSTIC STRIP TEST SCH ×4 (06:03→20:21)
[2018-06-12 08:00] VITALS: BP 164/83
[2018-06-12] MEDS: NIFEDIPINE XL 30MG TAB PO SCH (09:00)
[2018-06-12] MEDS: LOSARTAN POTASSIUM 100 MG TABLET PO SCH (09:00)
[2018-06-12] MEDS: FOLIC ACID/VITAMIN B COMP W-C TABLET PO SCH (09:00)
[2018-06-12] MEDS: CARVEDILOL 12.5MG TABLET PO SCH ×2 (09:00→20:20)
[2018-06-12] MEDS: PANTOPRAZOLE SODIUM 40 MG/VIAL IV SCH (09:31)
[2018-06-12] MEDS: AMLODIPINE 5MG TABLET PO SCH ×2 (11:08→20:20)
[2018-06-12 12:00] VITALS: BP 172/90
[2018-06-12 15:53] LABS: HEMATOCRIT. 32.4 % (42.0-52.0); HEMOGLOBIN. 10.3 g/dL (14.0-18.0); MEAN CORPUSCULAR HEMOGLOBIN 22.4 pg (28.0-32.0); MEAN CORPUSCULAR VOLUME 70.2 fL (80.0-94.0); MEAN PLATELET VOLUME 9.1 fl (7.4-10.4); PLATELET 298 x1000/uL (130-400); RED BLOOD CELL COUNT 4.62 mill/uL (4.7-6.1); RED CELL DISTRIBUTION WIDTH 21.9 % (11.6-14.6)
[2018-06-12 16:00] VITALS: BP 178/97
[2018-06-12] MEDS: DEXT 10% WATER 1,000 ML IV SCH (16:09)
[2018-06-12 16:54] LABS: PLATELET ESTIMATE NORMAL
[2018-06-12 20:19] VITALS: BP 196/105
[2018-06-12] MEDS: ATORVASTATIN CALCIUM 40MG TABLET PO SCH (20:20)
[2018-06-13 00:21] VITALS: BP 168/88
[2018-06-13] MEDS: ENALAPRIL 2.5MG/2ML VIAL 2ML IV SCH ×4 (00:28→18:00)
[2018-06-13] MEDS: MEROPENEM 500 MG in SODIUM CHLORIDE 0.9% 50 ML IV SCH ×2 (00:29→05:17)
[2018-06-13] MEDS: LEVETIRACETAM 500 MG in SODIUM CHLORIDE 0.9% 100 ML IV SCH ×3 (01:00→13:40)
[2018-06-13 04:00] VITALS: BP 138/69
[2018-06-13] MEDS: CLONIDINE 0.2MG TABLET PO SCH ×3 (04:00→20:37)
[2018-06-13] MEDS: HYDRALAZINE HCL 100MG TABLET PO SCH ×3 (05:17→22:00)
[2018-06-13] MEDS: NITROGLYCERIN OINT 1GM/INCH UDPKT TD SCH ×3 (05:17→22:00)
[2018-06-13] MEDS: BLOOD SUGAR DIAGNOSTIC STRIP TEST SCH ×4 (06:49→21:00)
[2018-06-13] MEDS: IPRATROPIUM/ALBUTEROL 0.5-3(2.5)MG/3ML NEB INH SCH ×3 (07:39→13:00)
[2018-06-13 08:00] VITALS: BP 150/49
[2018-06-13] MEDS: CARVEDILOL 12.5MG TABLET PO SCH ×2 (09:00→20:37)
[2018-06-13] MEDS: AMLODIPINE 5MG TABLET PO SCH ×2 (09:00→20:37)
[2018-06-13] MEDS: LOSARTAN POTASSIUM 100 MG TABLET PO SCH (09:00)
[2018-06-13] MEDS: FOLIC ACID/VITAMIN B COMP W-C TABLET PO SCH (09:00)
[2018-06-13] MEDS: PANTOPRAZOLE SODIUM 40 MG/VIAL IV SCH (09:18)
[2018-06-13 12:00] VITALS: BP 152/83
[2018-06-13 16:00] VITALS: BP 178/98
[2018-06-13] MEDS: DEXT 10% WATER 1,000 ML IV SCH (16:06)
[2018-06-13 20:00] VITALS: BP_SYST 167; BP_DIAS 86; BP_DIAS 87
[2018-06-13] MEDS: ATORVASTATIN CALCIUM 40MG TABLET PO SCH (20:36)
[2018-06-14] MEDS: ENALAPRIL 2.5MG/2ML VIAL 2ML IV SCH ×3 (00:41→12:32)
[2018-06-14 00:44] VITALS: BP 180/106
[2018-06-14] MEDS: CLONIDINE 0.2MG TABLET PO SCH ×3 (04:00→20:00)
[2018-06-14] MEDS: HYDRALAZINE HCL 100MG TABLET PO SCH ×3 (06:00→22:00)
[2018-06-14] MEDS: NITROGLYCERIN OINT 1GM/INCH UDPKT TD SCH ×3 (06:00→22:00)
[2018-06-14] MEDS: BLOOD SUGAR DIAGNOSTIC STRIP TEST SCH ×4 (07:15→21:00)
[2018-06-14] MEDS: IPRATROPIUM/ALBUTEROL 0.5-3(2.5)MG/3ML NEB INH SCH ×2 (07:58→14:11)
[2018-06-14 08:00] VITALS: BP 189/105
[2018-06-14 08:50] VITALS: BP 167/89
[2018-06-14] MEDS: AMLODIPINE 5MG TABLET PO SCH ×3 (09:00→21:00)
[2018-06-14] MEDS: PANTOPRAZOLE SODIUM 40 MG/VIAL IV SCH ×2 (09:00→09:23)
[2018-06-14] MEDS: FOLIC ACID/VITAMIN B COMP W-C TABLET PO SCH ×2 (09:00→09:27)
[2018-06-14] MEDS: LOSARTAN POTASSIUM 100 MG TABLET PO SCH ×2 (09:00→09:26)
[2018-06-14] MEDS: CARVEDILOL 12.5MG TABLET PO SCH ×3 (09:00→21:00)
[2018-06-14 12:00] VITALS: BP 199/88
[2018-06-14] MEDS: HYDRALAZINE 20MG/ML VIAL IV PRN (14:28)
[2018-06-14] MEDS: LEVETIRACETAM 500 MG in SODIUM CHLORIDE 0.9% 100 ML IV SCH (14:31)
[2018-06-14] MEDS: DEXT 10% WATER 1,000 ML IV SCH (15:22)
[2018-06-14 16:00] VITALS: BP 165/82
[2018-06-14 20:00] VITALS: BP_SYST 189
[2018-06-14] MEDS: ATORVASTATIN CALCIUM 40MG TABLET PO SCH (21:00)
[2018-06-15] VITALS: BP 181/86
[2018-06-15] MEDS: LEVETIRACETAM 500 MG in SODIUM CHLORIDE 0.9% 100 ML IV SCH ×2 (01:18→13:29)
[2018-06-15] MEDS: ENALAPRIL 2.5MG/2ML VIAL 2ML IV SCH ×5 (01:19→21:53)
[2018-06-15] MEDS: CLONIDINE 0.2MG TABLET PO SCH ×3 (03:49→15:01)
[2018-06-15] MEDS: NITROGLYCERIN OINT 1GM/INCH UDPKT TD SCH ×4 (05:38→22:00)
[2018-06-15] MEDS: HYDRALAZINE HCL 100MG TABLET PO SCH ×4 (05:38→22:00)
[2018-06-15] MEDS: IPRATROPIUM/ALBUTEROL 0.5-3(2.5)MG/3ML NEB INH SCH ×3 (06:00→21:50)
[2018-06-15] MEDS: BLOOD SUGAR DIAGNOSTIC STRIP TEST SCH ×4 (06:59→21:37)
[2018-06-15 08:00] VITALS: BP 163/107
[2018-06-15] MEDS: CARVEDILOL 12.5MG TABLET PO SCH ×3 (09:00→21:54)
[2018-06-15] MEDS: AMLODIPINE 5MG TABLET PO SCH ×3 (09:00→21:54)
[2018-06-15] MEDS: LOSARTAN POTASSIUM 100 MG TABLET PO SCH (09:00)
[2018-06-15] MEDS: PANTOPRAZOLE SODIUM 40 MG/VIAL IV SCH (09:00)
[2018-06-15] MEDS: FOLIC ACID/VITAMIN B COMP W-C TABLET PO SCH (09:00)
[2018-06-15] MEDS: ENOXAPARIN 30MG/0.3ML SYR SUBCUT SCH (09:50)
[2018-06-15 10:33] LABS: HEMATOCRIT. 32.4 % (42.0-52.0); HEMOGLOBIN. 10.5 g/dL (14.0-18.0); MEAN CORPUSCULAR HEMOGLOBIN 22.9 pg (28.0-32.0); MEAN CORPUSCULAR VOLUME 70.5 fL (80.0-94.0); MEAN PLATELET VOLUME 9.3 fl (7.4-10.4); PLATELET 345 x1000/uL (130-400); RED BLOOD CELL COUNT 4.59 mill/uL (4.7-6.1); RED CELL DISTRIBUTION WIDTH 21.6 % (11.6-14.6)
[2018-06-15 11:40] VITALS: BP 186/97
[2018-06-15 12:45] LABS: PLATELET ESTIMATE NORMAL
[2018-06-15] MEDS: MEGESTROL ACETATE 400 MG/10 ML UDC PO SCH (14:15)
[2018-06-15 14:50] VITALS: BP 185/99
[2018-06-15 20:00] VITALS: BP 138/86
[2018-06-15] MEDS ORDERED: VANCOMYCIN 500 MG PREMIX 100 ML IV NR (21:00)
[2018-06-15] MEDS: ATORVASTATIN CALCIUM 40MG TABLET PO SCH ×2 (21:00→21:53)
[2018-06-15] MEDS: DEXT 10% WATER 1,000 ML IV SCH (23:43)
[2018-06-16] VITALS: BP 132/80
[2018-06-16] MEDS: LEVETIRACETAM 500 MG in SODIUM CHLORIDE 0.9% 100 ML IV SCH ×2 (01:04→13:02)
[2018-06-16] MEDS: IPRATROPIUM/ALBUTEROL 0.5-3(2.5)MG/3ML NEB INH SCH ×3 (02:49→20:52)
[2018-06-16 04:00] VITALS: BP 138/86
[2018-06-16] MEDS: CLONIDINE 0.2MG TABLET PO SCH ×4 (04:00→21:11)
[2018-06-16] MEDS: NITROGLYCERIN OINT 1GM/INCH UDPKT TD SCH ×4 (06:00→21:15)
[2018-06-16] MEDS: ENALAPRIL 2.5MG/2ML VIAL 2ML IV SCH ×4 (06:00→18:20)
[2018-06-16] MEDS: HYDRALAZINE HCL 100MG TABLET PO SCH ×4 (06:00→21:15)
[2018-06-16] MEDS: BLOOD SUGAR DIAGNOSTIC STRIP TEST SCH ×4 (07:40→20:56)
[2018-06-16 08:00] VITALS: BP 125/77
[2018-06-16] MEDS: FOLIC ACID/VITAMIN B COMP W-C TABLET PO SCH (09:00)
[2018-06-16] MEDS: LOSARTAN POTASSIUM 100 MG TABLET PO SCH (09:00)
[2018-06-16] MEDS: CARVEDILOL 12.5MG TABLET PO SCH ×3 (09:00→21:10)
[2018-06-16] MEDS: PANTOPRAZOLE SODIUM 40 MG/VIAL IV SCH (09:00)
[2018-06-16] MEDS: AMLODIPINE 5MG TABLET PO SCH ×3 (09:00→21:11)
[2018-06-16] MEDS: MEGESTROL ACETATE 400 MG/10 ML UDC PO SCH (09:00)
[2018-06-16 12:00] VITALS: BP 168/90
[2018-06-16] MEDS: DEXT 10% WATER 1,000 ML IV SCH (12:45)
[2018-06-16] MEDS: HYDRALAZINE 20MG/ML VIAL IV PRN (15:06)
[2018-06-16 16:00] VITALS: BP 175/85
[2018-06-16 20:20] VITALS: BP 199/112
[2018-06-16] MEDS: ATORVASTATIN CALCIUM 40MG TABLET PO SCH ×2 (21:00→21:11)
[2018-06-17] VITALS (7 sets, daily range): BP systolic 128–208; BP diastolic 83–121
[2018-06-17] MEDS: ENALAPRIL 2.5MG/2ML VIAL 2ML IV SCH ×5 (01:09→23:52)
[2018-06-17] MEDS: LEVETIRACETAM 500 MG in SODIUM CHLORIDE 0.9% 100 ML IV SCH ×2 (01:09→15:27)
[2018-06-17] MEDS: IPRATROPIUM/ALBUTEROL 0.5-3(2.5)MG/3ML NEB INH SCH ×3 (01:22→16:50)
[2018-06-17] MEDS: CLONIDINE 0.2MG TABLET PO SCH (04:00)
[2018-06-17] MEDS: HYDRALAZINE HCL 100MG TABLET PO SCH ×3 (06:00→22:46)
[2018-06-17] MEDS: NITROGLYCERIN OINT 1GM/INCH UDPKT TD SCH ×3 (06:00→23:51)
[2018-06-17] MEDS: BLOOD SUGAR DIAGNOSTIC STRIP TEST SCH ×4 (07:40→21:04)
[2018-06-17 08:58] LABS: HEMATOCRIT. 36.1 % (42.0-52.0); HEMOGLOBIN. 11.5 g/dL (14.0-18.0); MEAN CORPUSCULAR HEMOGLOBIN 22.5 pg (28.0-32.0); MEAN CORPUSCULAR VOLUME 70.4 fL (80.0-94.0); MEAN PLATELET VOLUME 9.4 fl (7.4-10.4); PLATELET 383 x1000/uL (130-400); RED BLOOD CELL COUNT 5.13 mill/uL (4.7-6.1)
[2018-06-17] MEDS: PANTOPRAZOLE SODIUM 40 MG/VIAL IV SCH (09:00)
[2018-06-17] MEDS: AMLODIPINE 5MG TABLET PO SCH ×2 (09:00→21:10)
[2018-06-17] MEDS: LOSARTAN POTASSIUM 100 MG TABLET PO SCH (09:00)
[2018-06-17] MEDS: MEGESTROL ACETATE 400 MG/10 ML UDC PO SCH (09:00)
[2018-06-17] MEDS: ENOXAPARIN 30MG/0.3ML SYR SUBCUT SCH (09:00)
[2018-06-17] MEDS: CARVEDILOL 12.5MG TABLET PO SCH ×2 (09:00→21:11)
[2018-06-17] MEDS: FOLIC ACID/VITAMIN B COMP W-C TABLET PO SCH (09:00)
[2018-06-17 09:36] LABS: PHOSPHORUS 4.8 mg/dL (2.5-4.9)
[2018-06-17 11:12] LABS: PLATELET ESTIMATE NORMAL
[2018-06-17] MEDS: DEXT 10% WATER 1,000 ML IV SCH (12:45)
[2018-06-17] MEDS: CLONIDINE 0.3MG TABLET PO SCH (14:38)
[2018-06-17] MEDS: ATORVASTATIN CALCIUM 40MG TABLET PO SCH (21:10)
[2018-06-18] VITALS: BP 133/81
[2018-06-18] MEDS: LEVETIRACETAM 500 MG in SODIUM CHLORIDE 0.9% 100 ML IV SCH ×2 (00:02→14:34)
[2018-06-18 04:00] VITALS: BP 108/60
[2018-06-18] MEDS: CLONIDINE 0.3MG TABLET PO SCH ×4 (04:00→20:00)
[2018-06-18] MEDS: ENALAPRIL 2.5MG/2ML VIAL 2ML IV SCH ×3 (06:00→18:31)
[2018-06-18] MEDS: HYDRALAZINE HCL 100MG TABLET PO SCH ×3 (06:07→22:00)
[2018-06-18] MEDS: NITROGLYCERIN OINT 1GM/INCH UDPKT TD SCH ×3 (06:07→21:10)
[2018-06-18 06:47] LABS: HEMATOCRIT. 32.8 % (42.0-52.0); HEMOGLOBIN. 10.5 g/dL (14.0-18.0); MEAN CORPUSCULAR HEMOGLOBIN 22.5 pg (28.0-32.0); MEAN PLATELET VOLUME 9.4 fl (7.4-10.4); PLATELET 351 x1000/uL (130-400); RED BLOOD CELL COUNT 4.68 mill/uL (4.7-6.1); RED CELL DISTRIBUTION WIDTH 20.4 % (11.6-14.6)
[2018-06-18] MEDS: BLOOD SUGAR DIAGNOSTIC STRIP TEST SCH ×4 (06:55→21:00)
[2018-06-18 08:00] VITALS: BP 129/70
[2018-06-18] MEDS: MEGESTROL ACETATE 400 MG/10 ML UDC PO SCH (09:10)
[2018-06-18] MEDS: FOLIC ACID/VITAMIN B COMP W-C TABLET PO SCH (09:10)
[2018-06-18] MEDS: CARVEDILOL 12.5MG TABLET PO SCH ×2 (09:13→21:00)
[2018-06-18] MEDS: AMLODIPINE 5MG TABLET PO SCH ×2 (09:14→21:00)
[2018-06-18] MEDS: PANTOPRAZOLE SODIUM 40 MG/VIAL IV SCH (09:14)
[2018-06-18] MEDS: ENOXAPARIN 30MG/0.3ML SYR SUBCUT SCH (09:14)
[2018-06-18] MEDS: LOSARTAN POTASSIUM 100 MG TABLET PO SCH (09:14)
[2018-06-18] MEDS: DEXT 10% WATER 1,000 ML IV SCH (09:17)
[2018-06-18 10:58] LABS: PLATELET ESTIMATE NORMAL
[2018-06-18 12:00] VITALS: BP 135/70
[2018-06-18 16:00] VITALS: BP 149/81
[2018-06-18 20:00] VITALS: BP 151/85
[2018-06-18] MEDS: IPRATROPIUM/ALBUTEROL 0.5-3(2.5)MG/3ML NEB INH SCH (20:45)
[2018-06-18] MEDS: ATORVASTATIN CALCIUM 40MG TABLET PO SCH (21:00)
[2018-06-19 00:01] VITALS: BP 147/88
[2018-06-19] MEDS: ENALAPRIL 2.5MG/2ML VIAL 2ML IV SCH ×4 (00:18→18:00)
[2018-06-19] MEDS: IPRATROPIUM/ALBUTEROL 0.5-3(2.5)MG/3ML NEB INH SCH ×2 (01:05→20:15)
[2018-06-19] MEDS: LEVETIRACETAM 500 MG in SODIUM CHLORIDE 0.9% 100 ML IV SCH ×2 (01:26→13:00)
[2018-06-19 04:00] VITALS: BP 152/79
[2018-06-19] MEDS: CLONIDINE 0.3MG TABLET PO SCH ×3 (04:00→20:00)
[2018-06-19] MEDS: NITROGLYCERIN OINT 1GM/INCH UDPKT TD SCH ×3 (05:55→21:03)
[2018-06-19] MEDS: HYDRALAZINE HCL 100MG TABLET PO SCH ×3 (05:55→21:02)
[2018-06-19] MEDS: BLOOD SUGAR DIAGNOSTIC STRIP TEST SCH ×4 (07:40→20:33)
[2018-06-19 08:00] VITALS: BP 151/90
[2018-06-19] MEDS: MEGESTROL ACETATE 400 MG/10 ML UDC PO SCH (09:00)
[2018-06-19] MEDS: FOLIC ACID/VITAMIN B COMP W-C TABLET PO SCH (09:00)
[2018-06-19] MEDS: LOSARTAN POTASSIUM 100 MG TABLET PO SCH (09:00)
[2018-06-19] MEDS: PANTOPRAZOLE SODIUM 40 MG/VIAL IV SCH (09:00)
[2018-06-19] MEDS: ENOXAPARIN 30MG/0.3ML SYR SUBCUT SCH (09:00)
[2018-06-19] MEDS: CARVEDILOL 12.5MG TABLET PO SCH ×2 (09:00→20:33)
[2018-06-19] MEDS: AMLODIPINE 5MG TABLET PO SCH ×2 (09:00→20:33)
[2018-06-19 10:09] LABS: HEMATOCRIT. 33.6 % (42.0-52.0); HEMOGLOBIN. 10.6 g/dL (14.0-18.0); MEAN CORPUSCULAR HEMOGLOBIN 22.3 pg (28.0-32.0); MEAN PLATELET VOLUME 9.2 fl (7.4-10.4); PLATELET 354 x1000/uL (130-400); RED BLOOD CELL COUNT 4.74 mill/uL (4.7-6.1); RED CELL DISTRIBUTION WIDTH 21.3 % (11.6-14.6)
[2018-06-19 11:12] LABS: PLATELET ESTIMATE NORMAL
[2018-06-19 12:00] VITALS: BP 162/99
[2018-06-19] MEDS: DEXT 10% WATER 1,000 ML IV SCH (12:45)
[2018-06-19 16:00] VITALS: BP 122/80
[2018-06-19] MEDS: ATORVASTATIN CALCIUM 40MG TABLET PO SCH (20:33)
[2018-06-20] VITALS (7 sets, daily range): BP systolic 162–221; BP diastolic 84–123
[2018-06-20] MEDS: ENALAPRIL 2.5MG/2ML VIAL 2ML IV SCH ×4 (00:13→17:32)
[2018-06-20] MEDS: LEVETIRACETAM 500 MG in SODIUM CHLORIDE 0.9% 100 ML IV SCH ×2 (01:14→11:59)
[2018-06-20] MEDS: CLONIDINE 0.3MG TABLET PO SCH ×3 (04:00→21:17)
[2018-06-20] MEDS: HYDRALAZINE 20MG/ML VIAL IV PRN ×2 (04:41→16:14)
[2018-06-20] MEDS: NITROGLYCERIN OINT 1GM/INCH UDPKT TD SCH ×2 (05:04→16:08)
[2018-06-20] MEDS: HYDRALAZINE HCL 100MG TABLET PO SCH ×3 (05:04→21:17)
[2018-06-20] MEDS: BLOOD SUGAR DIAGNOSTIC STRIP TEST SCH ×4 (06:41→21:00)
[2018-06-20 07:02] LABS: HEMATOCRIT. 37.5 % (42.0-52.0); HEMOGLOBIN. 11.8 g/dL (14.0-18.0); MEAN CORPUSCULAR HEMOGLOBIN 22.3 pg (28.0-32.0); MEAN CORPUSCULAR VOLUME 71.1 fL (80.0-94.0); MEAN PLATELET VOLUME 9.4 fl (7.4-10.4); PLATELET 424 x1000/uL (130-400); RED BLOOD CELL COUNT 5.28 mill/uL (4.7-6.1); RED CELL DISTRIBUTION WIDTH 21.4 % (11.6-14.6)
[2018-06-20] MEDS: CARVEDILOL 12.5MG TABLET PO SCH ×2 (09:00→21:17)
[2018-06-20] MEDS: MEGESTROL ACETATE 400 MG/10 ML UDC PO SCH (09:00)
[2018-06-20] MEDS: FOLIC ACID/VITAMIN B COMP W-C TABLET PO SCH (09:00)
[2018-06-20] MEDS: AMLODIPINE 5MG TABLET PO SCH ×2 (09:00→21:17)
[2018-06-20] MEDS: ENOXAPARIN 30MG/0.3ML SYR SUBCUT SCH (09:00)
[2018-06-20] MEDS: LOSARTAN POTASSIUM 100 MG TABLET PO SCH (09:00)
[2018-06-20] MEDS: PANTOPRAZOLE SODIUM 40 MG/VIAL IV SCH (09:24)
[2018-06-20 10:15] LABS: PLATELET ESTIMATE SLIGHTLY INCREASED
[2018-06-20] MEDS: DEXT 10% WATER 1,000 ML IV SCH (16:11)
[2018-06-20] MEDS: IPRATROPIUM/ALBUTEROL 0.5-3(2.5)MG/3ML NEB INH SCH (19:45)
[2018-06-20] MEDS ORDERED: HYDRALAZINE 20MG/ML VIAL IV PRN (20:00)
[2018-06-20] MEDS: METOPROLOL TARTRATE 5MG/5ML VIAL IV SCH (20:26)
[2018-06-20] MEDS: ATORVASTATIN CALCIUM 40MG TABLET PO SCH (21:17)
[2018-06-21] VITALS: BP 113/70
[2018-06-21] MEDS: NITROGLYCERIN OINT 1GM/INCH UDPKT TD SCH ×4 (01:43→22:00)
[2018-06-21] MEDS: IPRATROPIUM/ALBUTEROL 0.5-3(2.5)MG/3ML NEB INH SCH ×4 (01:50→20:05)
[2018-06-21] MEDS: LEVETIRACETAM 500 MG in SODIUM CHLORIDE 0.9% 100 ML IV SCH ×2 (02:00→14:17)
[2018-06-21 04:00] VITALS: BP 107/72
[2018-06-21] MEDS: CLONIDINE 0.3MG TABLET PO SCH ×3 (04:00→22:55)
[2018-06-21] MEDS: ENALAPRIL 2.5MG/2ML VIAL 2ML IV SCH ×4 (05:25→18:15)
[2018-06-21] MEDS: HYDRALAZINE HCL 100MG TABLET PO SCH ×3 (05:26→22:55)
[2018-06-21] MEDS: BLOOD SUGAR DIAGNOSTIC STRIP TEST SCH ×4 (06:20→21:00)
[2018-06-21 07:17] LABS: HEMATOCRIT. 31.3 % (42.0-52.0); MEAN CORPUSCULAR HEMOGLOBIN 22.4 pg (28.0-32.0); MEAN CORPUSCULAR VOLUME 70.4 fL (80.0-94.0); MEAN PLATELET VOLUME 8.9 fl (7.4-10.4); PLATELET 346 x1000/uL (130-400); RED BLOOD CELL COUNT 4.45 mill/uL (4.7-6.1); RED CELL DISTRIBUTION WIDTH 21.5 % (11.6-14.6)
[2018-06-21 08:00] VITALS: BP 127/80
[2018-06-21] MEDS: METOPROLOL TARTRATE 5MG/5ML VIAL IV SCH ×2 (09:00→21:00)
[2018-06-21] MEDS: LOSARTAN POTASSIUM 100 MG TABLET PO SCH (10:13)
[2018-06-21] MEDS: FOLIC ACID/VITAMIN B COMP W-C TABLET PO SCH (10:13)
[2018-06-21] MEDS: AMLODIPINE 5MG TABLET PO SCH ×2 (10:13→22:55)
[2018-06-21] MEDS: PANTOPRAZOLE SODIUM 40 MG/VIAL IV SCH (10:13)
[2018-06-21] MEDS: CARVEDILOL 12.5MG TABLET PO SCH ×2 (10:13→22:55)
[2018-06-21] MEDS: ENOXAPARIN 30MG/0.3ML SYR SUBCUT SCH (10:14)
[2018-06-21] MEDS: MEGESTROL ACETATE 400 MG/10 ML UDC PO SCH (10:14)
[2018-06-21 12:00] VITALS: BP 125/76
[2018-06-21] MEDS: DEXT 10% WATER 1,000 ML IV SCH (14:18)
[2018-06-21 16:00] VITALS: BP 115/68
[2018-06-21 16:57] LABS: PLATELET ESTIMATE NORMAL
[2018-06-21 20:00] VITALS: BP 124/76
[2018-06-21] MEDS: ATORVASTATIN CALCIUM 40MG TABLET PO SCH (22:54)
[2018-06-22] VITALS: BP 141/79
[2018-06-22] MEDS: LEVETIRACETAM 500 MG in SODIUM CHLORIDE 0.9% 100 ML IV SCH (01:28)
[2018-06-22] MEDS: ENALAPRIL 2.5MG/2ML VIAL 2ML IV SCH ×2 (01:28→05:36)
[2018-06-22] MEDS: IPRATROPIUM/ALBUTEROL 0.5-3(2.5)MG/3ML NEB INH SCH ×3 (02:18→20:39)
[2018-06-22 04:00] VITALS: BP 114/74
[2018-06-22] MEDS: NITROGLYCERIN OINT 1GM/INCH UDPKT TD SCH (05:36)
[2018-06-22] MEDS: HYDRALAZINE HCL 100MG TABLET PO SCH ×3 (05:43→22:00)
[2018-06-22] MEDS: CLONIDINE 0.3MG TABLET PO SCH ×3 (05:44→20:00)
[2018-06-22] MEDS: BLOOD SUGAR DIAGNOSTIC STRIP TEST SCH ×4 (05:44→21:00)
[2018-06-22 08:00] VITALS: BP 104/65
[2018-06-22] MEDS: CARVEDILOL 12.5MG TABLET PO SCH ×3 (09:00→21:00)
[2018-06-22] MEDS: FOLIC ACID/VITAMIN B COMP W-C TABLET PO SCH ×2 (09:00→10:30)
[2018-06-22] MEDS: PANTOPRAZOLE SODIUM 40 MG/VIAL IV SCH ×2 (09:00→10:36)
[2018-06-22] MEDS: LOSARTAN POTASSIUM 100 MG TABLET PO SCH ×2 (09:00→10:34)
[2018-06-22] MEDS: ENOXAPARIN 30MG/0.3ML SYR SUBCUT SCH ×2 (09:00→10:36)
[2018-06-22] MEDS: METOPROLOL TARTRATE 5MG/5ML VIAL IV SCH ×2 (09:00→10:35)
[2018-06-22] MEDS: AMLODIPINE 5MG TABLET PO SCH ×3 (09:00→21:00)
[2018-06-22] MEDS: MEGESTROL ACETATE 400 MG/10 ML UDC PO SCH ×2 (09:00→10:30)
[2018-06-22 16:00] VITALS: BP 129/70
[2018-06-22] MEDS: PANTOPRAZOLE 40MG DR TABLET PO SCH (18:00)
[2018-06-22 20:00] VITALS: BP 133/63
[2018-06-22] MEDS: LEVETIRACETAM 500MG TABLET PO SCH (21:00)
[2018-06-22] MEDS: ATORVASTATIN CALCIUM 40MG TABLET PO SCH (21:00)
[2018-06-23] VITALS: BP 170/93
[2018-06-23] MEDS: IPRATROPIUM/ALBUTEROL 0.5-3(2.5)MG/3ML NEB INH SCH ×4 (02:32→20:33)
[2018-06-23 04:00] VITALS: BP 166/90
[2018-06-23] MEDS: CLONIDINE 0.3MG TABLET PO SCH ×5 (04:00→20:39)
[2018-06-23] MEDS: HYDRALAZINE HCL 100MG TABLET PO SCH ×4 (05:04→22:00)
[2018-06-23] MEDS: BLOOD SUGAR DIAGNOSTIC STRIP TEST SCH ×4 (07:40→20:29)
[2018-06-23] MEDS: PANTOPRAZOLE 40MG DR TABLET PO SCH (10:55)
[2018-06-23] MEDS: ASPIRIN 81MG TABLET NG SCH (10:55)
[2018-06-23] MEDS: LOSARTAN POTASSIUM 100 MG TABLET PO SCH (10:55)
[2018-06-23] MEDS: LEVETIRACETAM 500MG TABLET PO SCH ×3 (10:55→20:41)
[2018-06-23] MEDS: AMLODIPINE 5MG TABLET PO SCH ×2 (10:56→20:41)
[2018-06-23] MEDS: CARVEDILOL 12.5MG TABLET PO SCH ×3 (10:56→20:40)
[2018-06-23] MEDS: FOLIC ACID/VITAMIN B COMP W-C TABLET PO SCH (10:56)
[2018-06-23] MEDS: MEGESTROL ACETATE 400 MG/10 ML UDC PO SCH (10:57)
[2018-06-23 20:00] VITALS: BP 133/80
[2018-06-23] MEDS: ATORVASTATIN CALCIUM 40MG TABLET PO SCH ×2 (20:37→20:41)
[2018-06-24] VITALS: BP 132/84
[2018-06-24] MEDS: IPRATROPIUM/ALBUTEROL 0.5-3(2.5)MG/3ML NEB INH SCH ×4 (02:15→20:59)
[2018-06-24 04:00] VITALS: BP 124/83
[2018-06-24] MEDS: CLONIDINE 0.3MG TABLET PO SCH ×3 (04:00→20:00)
[2018-06-24] MEDS: HYDRALAZINE HCL 100MG TABLET PO SCH ×3 (05:05→23:06)
[2018-06-24] MEDS: BLOOD SUGAR DIAGNOSTIC STRIP TEST SCH ×4 (06:56→21:10)
[2018-06-24 08:00] VITALS: BP 127/79
[2018-06-24] MEDS: MEGESTROL ACETATE 400 MG/10 ML UDC PO SCH (09:00)
[2018-06-24] MEDS: LOSARTAN POTASSIUM 100 MG TABLET PO SCH (09:08)
[2018-06-24] MEDS: PANTOPRAZOLE 40MG DR TABLET PO SCH (09:09)
[2018-06-24] MEDS: LEVETIRACETAM 500MG TABLET PO SCH ×2 (09:09→21:10)
[2018-06-24] MEDS: CARVEDILOL 12.5MG TABLET PO SCH ×2 (09:09→21:10)
[2018-06-24] MEDS: ASPIRIN 81MG TABLET NG SCH (09:09)
[2018-06-24] MEDS: AMLODIPINE 5MG TABLET PO SCH ×2 (09:10→21:10)
[2018-06-24] MEDS: FOLIC ACID/VITAMIN B COMP W-C TABLET PO SCH (09:10)
[2018-06-24 12:00] VITALS: BP 142/80
[2018-06-24 16:00] VITALS: BP 119/75
[2018-06-24 20:00] VITALS: BP 127/72
[2018-06-24] MEDS: ATORVASTATIN CALCIUM 40MG TABLET PO SCH (21:10)
[2018-06-25] VITALS: BP 149/75
[2018-06-25 04:00] VITALS: BP 138/85
[2018-06-25] MEDS: CLONIDINE 0.3MG TABLET PO SCH ×3 (04:00→20:00)
[2018-06-25] MEDS: HYDRALAZINE HCL 100MG TABLET PO SCH ×3 (06:16→22:56)
[2018-06-25] MEDS: BLOOD SUGAR DIAGNOSTIC STRIP TEST SCH ×4 (06:24→20:56)
[2018-06-25] MEDS: IPRATROPIUM/ALBUTEROL 0.5-3(2.5)MG/3ML NEB INH SCH ×3 (07:22→21:27)
[2018-06-25 08:00] VITALS: BP 141/72
[2018-06-25] MEDS: MEGESTROL ACETATE 400 MG/10 ML UDC PO SCH (08:56)
[2018-06-25] MEDS: ASPIRIN 81MG TABLET NG SCH (08:57)
[2018-06-25] MEDS: CARVEDILOL 12.5MG TABLET PO SCH ×2 (08:57→21:00)
[2018-06-25] MEDS: LOSARTAN POTASSIUM 100 MG TABLET PO SCH (08:58)
[2018-06-25] MEDS: LEVETIRACETAM 500MG TABLET PO SCH ×2 (08:58→20:59)
[2018-06-25] MEDS: FAMOTIDINE 20MG TABLET PO SCH (08:58)
[2018-06-25] MEDS: FOLIC ACID/VITAMIN B COMP W-C TABLET PO SCH (08:58)
[2018-06-25] MEDS: AMLODIPINE 5MG TABLET PO SCH ×2 (08:58→21:00)
[2018-06-25 12:00] VITALS: BP 110/67
[2018-06-25 16:00] VITALS: BP 123/71
[2018-06-25 20:00] VITALS: BP 124/72
[2018-06-25] MEDS: ATORVASTATIN CALCIUM 40MG TABLET PO SCH (21:00)
[2018-06-26] VITALS: BP_SYST 126; BP_SYST 129; BP_DIAS 78; BP_DIAS 81
[2018-06-26] MEDS: IPRATROPIUM/ALBUTEROL 0.5-3(2.5)MG/3ML NEB INH SCH ×4 (02:35→20:46)
[2018-06-26 04:00] VITALS: BP 139/80
[2018-06-26] MEDS: CLONIDINE 0.3MG TABLET PO SCH ×3 (04:00→20:26)
[2018-06-26] MEDS: HYDRALAZINE HCL 100MG TABLET PO SCH ×3 (06:00→22:00)
[2018-06-26] MEDS: BLOOD SUGAR DIAGNOSTIC STRIP TEST SCH ×4 (07:00→21:10)
[2018-06-26] MEDS ORDERED: HEPARIN SODIUM 1,000 UNIT/1ML VIAL IV NR (07:15)
[2018-06-26 08:00] VITALS: BP 133/78
[2018-06-26] MEDS: LEVETIRACETAM 500MG TABLET PO SCH ×2 (08:27→20:26)
[2018-06-26] MEDS: MEGESTROL ACETATE 400 MG/10 ML UDC PO SCH (08:27)
[2018-06-26] MEDS: FOLIC ACID/VITAMIN B COMP W-C TABLET PO SCH (08:27)
[2018-06-26] MEDS: ASPIRIN 81MG TABLET NG SCH (08:27)
[2018-06-26] MEDS: FAMOTIDINE 20MG TABLET PO SCH (08:27)
[2018-06-26] MEDS: CARVEDILOL 12.5MG TABLET PO SCH ×3 (08:28→20:26)
[2018-06-26] MEDS: LOSARTAN POTASSIUM 100 MG TABLET PO SCH ×2 (08:28→09:16)
[2018-06-26] MEDS: AMLODIPINE 5MG TABLET PO SCH ×2 (08:28→20:26)
[2018-06-26 12:00] VITALS: BP 111/73
[2018-06-26 16:00] VITALS: BP 101/69
[2018-06-26 20:00] VITALS: BP 126/78
[2018-06-26] MEDS: ATORVASTATIN CALCIUM 40MG TABLET PO SCH (20:26)
[2018-06-27] VITALS: BP 118/80
[2018-06-27] MEDS: IPRATROPIUM/ALBUTEROL 0.5-3(2.5)MG/3ML NEB INH SCH ×4 (02:22→21:47)
[2018-06-27 04:00] VITALS: BP 101/65
[2018-06-27] MEDS: CLONIDINE 0.3MG TABLET PO SCH ×3 (04:00→22:56)
[2018-06-27] MEDS: HYDRALAZINE HCL 100MG TABLET PO SCH ×3 (06:00→22:56)
[2018-06-27] MEDS: BLOOD SUGAR DIAGNOSTIC STRIP TEST SCH ×4 (06:43→21:00)
[2018-06-27] MEDS: FAMOTIDINE 20MG TABLET PO SCH ×2 (06:49→09:06)
[2018-06-27 08:00] VITALS: BP 126/80
[2018-06-27] MEDS: MEGESTROL ACETATE 400 MG/10 ML UDC PO SCH (09:06)
[2018-06-27] MEDS: FOLIC ACID/VITAMIN B COMP W-C TABLET PO SCH (09:06)
[2018-06-27] MEDS: CARVEDILOL 12.5MG TABLET PO SCH ×2 (09:06→22:57)
[2018-06-27] MEDS: LOSARTAN POTASSIUM 100 MG TABLET PO SCH (09:06)
[2018-06-27] MEDS: LEVETIRACETAM 500MG TABLET PO SCH ×2 (09:06→22:56)
[2018-06-27] MEDS: ASPIRIN 81MG TABLET NG SCH (09:06)
[2018-06-27] MEDS: AMLODIPINE 5MG TABLET PO SCH ×2 (09:07→22:56)
[2018-06-27] MEDS ORDERED: DEXTROSE 50% WATER 50ML SYRINGE IV PRN (11:30)
[2018-06-27 12:00] VITALS: BP 118/72
[2018-06-27] MEDS: INSULIN LISPRO 100 UNITS/ML SUBCUT SCH ×3 (12:49→21:00)
[2018-06-27 16:00] VITALS: BP 132/80
[2018-06-27 20:00] VITALS: BP 120/61
[2018-06-27] MEDS: ATORVASTATIN CALCIUM 40MG TABLET PO SCH (21:00)
[2018-06-28] VITALS: BP 116/54
[2018-06-28] MEDS: IPRATROPIUM/ALBUTEROL 0.5-3(2.5)MG/3ML NEB INH SCH ×3 (02:43→12:00)
[2018-06-28] MEDS: CLONIDINE 0.3MG TABLET PO SCH ×2 (05:15→12:00)
[2018-06-28 06:06] LABS: HEMATOCRIT. 30.8 % (42.0-52.0); HEMOGLOBIN. 10.1 g/dL (14.0-18.0); MEAN CORPUSCULAR HEMOGLOBIN 22.8 pg (28.0-32.0); MEAN CORPUSCULAR VOLUME 69.7 fL (80.0-94.0); MEAN PLATELET VOLUME 9.3 fl (7.4-10.4); PLATELET 279 x1000/uL (130-400); RED BLOOD CELL COUNT 4.42 mill/uL (4.7-6.1); RED CELL DISTRIBUTION WIDTH 21.4 % (11.6-14.6)
[2018-06-28] MEDS: BLOOD SUGAR DIAGNOSTIC STRIP TEST SCH ×3 (07:40→17:40)
[2018-06-28 08:00] VITALS: BP 117/74
[2018-06-28] MEDS: INSULIN LISPRO 100 UNITS/ML SUBCUT SCH ×3 (08:10→18:10)
[2018-06-28] MEDS: HYDRALAZINE HCL 100MG TABLET PO SCH ×2 (08:41→14:00)
[2018-06-28] MEDS: FOLIC ACID/VITAMIN B COMP W-C TABLET PO SCH (09:00)
[2018-06-28] MEDS: CARVEDILOL 12.5MG TABLET PO SCH (09:00)
[2018-06-28] MEDS: ASPIRIN 81MG TABLET NG SCH (09:00)
[2018-06-28] MEDS: LOSARTAN POTASSIUM 100 MG TABLET PO SCH (09:00)
[2018-06-28] MEDS: LEVETIRACETAM 500MG TABLET PO SCH (09:00)
[2018-06-28] MEDS: MEGESTROL ACETATE 400 MG/10 ML UDC PO SCH (09:00)
[2018-06-28] MEDS: AMLODIPINE 5MG TABLET PO SCH (09:00)
[2018-06-28 12:00] VITALS: BP 112/66
[2018-06-28 16:00] VITALS: BP 85/53
[2018-06-28 16:32] LABS: PLATELET ESTIMATE NORMAL
[2018-06-28 20:00] VITALS: BP_SYST 111; BP_SYST 92; BP_DIAS 61; BP_DIAS 64
[2018-06-28 21:00] VITALS: BP 111/61
== END 2018-06-28 21:25 | DRG 466 ==
LOC: ER 03:38 → 8WST 05:15 → EDBEDREQ 05:20 → EDBEDREQTM 05:20 → ENRESERV 08:06 → CVICU 06-05 13:45 → MICUSO 06-05 16:15 → 5EST 06-09 20:51 → 7WST 06-10 23:38
PROVIDERS: ADMIT Internal Medicine; ATTEND Internal Medicine
PROC: 0JPT3XZ Removal of Tunneled Vascular Access Device from Trunk Subcutaneous Tissue and Fascia, Percutaneous Approach (ICD-10-PCS; 2018-06-02)
PROC: 0JH63XZ Insertion of Tunneled Vascular Access Device into Chest Subcutaneous Tissue and Fascia, Percutaneous Approach (ICD-10-PCS; 2018-06-02)
PROC: 02PY33Z Removal of Infusion Device from Great Vessel, Percutaneous Approach (ICD-10-PCS; 2018-06-02)
PROC: 02HV33Z Insertion of Infusion Device into Superior Vena Cava, Percutaneous Approach (ICD-10-PCS; 2018-06-02)
PROC: B5181ZA Fluoroscopy of Superior Vena Cava using Low Osmolar Contrast, Guidance (ICD-10-PCS; 2018-06-02)
PROC: 5A1D70Z Performance of Urinary Filtration, Intermittent, Less than 6 Hours Per Day (ICD-10-PCS; 2018-06-03)
PROC: 5A1D70Z Performance of Urinary Filtration, Intermittent, Less than 6 Hours Per Day (ICD-10-PCS; 2018-06-04)
PROC: 0BH17EZ Insertion of Endotracheal Airway into Trachea, Via Natural or Artificial Opening (ICD-10-PCS; 2018-06-05)
PROC: 5A1D70Z Performance of Urinary Filtration, Intermittent, Less than 6 Hours Per Day (ICD-10-PCS; 2018-06-05)
PROC: 5A12012 Performance of Cardiac Output, Single, Manual (ICD-10-PCS; 2018-06-05)
PROC: 5A1945Z Respiratory Ventilation, 24-96 Consecutive Hours (ICD-10-PCS; principal; 2018-06-05 10:00)
PROC: 02HV33Z Insertion of Infusion Device into Superior Vena Cava, Percutaneous Approach (ICD-10-PCS; 2018-06-06)
PROC: B548ZZA Ultrasonography of Superior Vena Cava, Guidance (ICD-10-PCS; 2018-06-06)
PROC: 5A1D70Z Performance of Urinary Filtration, Intermittent, Less than 6 Hours Per Day (ICD-10-PCS; 2018-06-07)
PROC: 5A1D70Z Performance of Urinary Filtration, Intermittent, Less than 6 Hours Per Day (ICD-10-PCS; 2018-06-09)
PROC: 5A1D70Z Performance of Urinary Filtration, Intermittent, Less than 6 Hours Per Day (ICD-10-PCS; 2018-06-12)
PROC: 5A1D70Z Performance of Urinary Filtration, Intermittent, Less than 6 Hours Per Day (ICD-10-PCS; 2018-06-15)
PROC: 5A1D70Z Performance of Urinary Filtration, Intermittent, Less than 6 Hours Per Day (ICD-10-PCS; 2018-06-17)
PROC: 5A1D70Z Performance of Urinary Filtration, Intermittent, Less than 6 Hours Per Day (ICD-10-PCS; 2018-06-19)
PROC: 5A1D70Z Performance of Urinary Filtration, Intermittent, Less than 6 Hours Per Day (ICD-10-PCS; 2018-06-22)
PROC: 5A1D70Z Performance of Urinary Filtration, Intermittent, Less than 6 Hours Per Day (ICD-10-PCS; 2018-06-24)
PROC: 5A1D70Z Performance of Urinary Filtration, Intermittent, Less than 6 Hours Per Day (ICD-10-PCS; 2018-06-26)
DX: T82.7XXA Infection and inflammatory reaction due to other cardiac and vascular devices, implants and grafts, initial encounter (principal); N18.6 End stage renal disease; J96.01 Acute respiratory failure with hypoxia; A41.9 Sepsis, unspecified organism; E43 Unspecified severe protein-calorie malnutrition; G93.1 Anoxic brain damage, not elsewhere classified; I13.2 Hypertensive heart and chronic kidney disease with heart failure and with stage 5 chronic kidney disease, or end stage renal disease; I46.9 Cardiac arrest, cause unspecified; T82.41XA Breakdown (mechanical) of vascular dialysis catheter, initial encounter; E11.40 Type 2 diabetes mellitus with diabetic neuropathy, unspecified; E11.319 Type 2 diabetes mellitus with unspecified diabetic retinopathy without macular edema; E11.22 Type 2 diabetes mellitus with diabetic chronic kidney disease; I25.10 Atherosclerotic heart disease of native coronary artery without angina pectoris; I45.81 Long QT syndrome; N39.0 Urinary tract infection, site not specified; L97.429 Non-pressure chronic ulcer of left heel and midfoot with unspecified severity; I50.42 Chronic combined systolic (congestive) and diastolic (congestive) heart failure; H43.11 Vitreous hemorrhage, right eye; E87.6 Hypokalemia; E87.8 Other disorders of electrolyte and fluid balance, not elsewhere classified; E83.51 Hypocalcemia; D50.9 Iron deficiency anemia, unspecified; E11.51 Type 2 diabetes mellitus with diabetic peripheral angiopathy without gangrene; E11.621 Type 2 diabetes mellitus with foot ulcer; H25.11 Age-related nuclear cataract, right eye; I42.9 Cardiomyopathy, unspecified; R26.2 Difficulty in walking, not elsewhere classified; R74.0 Nonspecific elevation of levels of transaminase and lactic acid dehydrogenase [LDH]; M54.9 Dorsalgia, unspecified; Z53.29 Procedure and treatment not carried out because of patient's decision for other reasons; E83.42 Hypomagnesemia; Y83.8 Other surgical procedures as the cause of abnormal reaction of the patient, or of later complication, without mention of misadventure at the time of the procedure; E11.649 Type 2 diabetes mellitus with hypoglycemia without coma; F11.20 Opioid dependence, uncomplicated; F17.200 Nicotine dependence, unspecified, uncomplicated; F32.9 Major depressive disorder, single episode, unspecified; G89.4 Chronic pain syndrome; H40.9 Unspecified glaucoma; L03.90 Cellulitis, unspecified; M19.90 Unspecified osteoarthritis, unspecified site; H54.61 Unqualified visual loss, right eye, normal vision left eye; R62.7 Adult failure to thrive; Z79.84 Long term (current) use of oral hypoglycemic drugs; Z86.73 Personal history of transient ischemic attack (TIA), and cerebral infarction without residual deficits; Z95.5 Presence of coronary angioplasty implant and graft; Z91.19 Patient's noncompliance with other medical treatment and regimen; Z99.2 Dependence on renal dialysis; Z79.899 Other long term (current) drug therapy; Z68.23 Body mass index [BMI] 23.0-23.9, adult; Z78.1 Physical restraint status; Y92.89 Other specified places as the place of occurrence of the external cause
CPT/HCPCS: 36415; 36569; 36581; 36600; 70450; 70544; 70553; 71045; 72141; 72146; 72148; 74177; 76700; 76937; 77001; 80048; 80053; 80061; 80076; 80202; 80305; 81003; 82140; 82375; 82550; 82553; 82805; 82962; 83605; 83690; 83735; 83880; 84100; 84132; 84145; 84153; 84439; 84443; 84478; 84481; 84484; 85025; 85610; 85730; 86706; 86803; 87040; 87340; 93005; 93306; 93970; 94002; 94003; 94640; 96365; 96375; 97110; 97116; 97162; 97164; 97166; 97168; 97530; 99285; A4216; C1725; C1750; C1769; C1893; C9113; J0360; J0461; J0610; J1200; J1642; J1644; J1650; J1815; J1953; J2060; J2185; J2250; J2270; J2405; J2704; J3370; J3475; J3490; J7030; J7042; J7050; J7060; J7070; J7620; Q0163; Q9967; A4315; G0103

== ENCOUNTER 2018-07-14 00:54 | Emergency (ER) | payer MEDICAID ==
[~2018-07-14] VITALS: Ht 180.3 cm; Wt 77.0 kg
[2018-07-14] MEDS ORDERED: ONDANSETRON HCL 4MG/2ML INJ IV ONE (02:30)
[2018-07-14] MEDS ORDERED: CALCIUM GLUCONATE 100MG/ML 10ML VIAL IV ONE (03:15)
[2018-07-14] MEDS ORDERED: CALCIUM GLUCONATE 1,000 MG in DEXTROSE 5% WATER 50 ML IV SCH (04:00)
[2018-07-14 05:34] VITALS: BP 217/121
== END 2018-07-14 06:33 | disposition home or self-care (01) ==
LOC: ER 00:54
DX: M54.2 Cervicalgia (principal); R07.89 Other chest pain; R00.0 Tachycardia, unspecified; Z91.14 Patient's other noncompliance with medication regimen
CPT/HCPCS: 70450; 71045; 72125; 93005; 96365; 96375; 99284; J0610; J2405; Z7610; J7060

== ENCOUNTER 2018-09-23 19:52 | Inpatient (IN) | payer MEDICAID ==
[~2018-09-23] VITALS: Ht 182.9 cm; Wt 100.7 kg
[2018-09-23] MEDS ORDERED: DIPHENHYDRAMINE 50MG/ML VIAL IV ONE (23:30)
[2018-09-23] MEDS ORDERED: KETOROLAC 15MG/ML VIAL IV ONE (23:30)
[2018-09-24] VITALS (8 sets, daily range): BP systolic 138–160; BP diastolic 75–99
[2018-09-24 01:15] LABS: HEMATOCRIT. 29.2 % (42.0-52.0); HEMOGLOBIN. 8.9 g/dL (14.0-18.0); MEAN CORPUSCULAR HEMOGLOBIN 23.5 pg (28.0-32.0); MEAN CORPUSCULAR VOLUME 77.3 fL (80.0-94.0); MEAN PLATELET VOLUME 8.7 fl (7.4-10.4); PLATELET 365 x1000/uL (130-400); RED BLOOD CELL COUNT 3.78 mill/uL (4.7-6.1); RED CELL DISTRIBUTION WIDTH 19.3 % (11.6-14.6)
[2018-09-24 01:22] LABS: CHLORIDE 103 mEq/L (98-107)
[2018-09-24 01:24] LABS: INR 1.2; PROTHROMBIN TIME 11.9 sec (9.1-11.1)
[2018-09-24] MEDS ORDERED: SODIUM POLYSTYRENE SULFONATE 15 G/60 ML BOT PO ONE (02:00)
[2018-09-24] MEDS ORDERED: INSULIN REGULAR (HUMULIN R) 300UNITS/3ML IV ONE (02:00)
[2018-09-24] MEDS ORDERED: ENOXAPARIN 100MG/ML SYR SUBCUT ONE (02:00)
[2018-09-24] MEDS ORDERED: SODIUM BICARBONATE 8.4% 1 MEQ/ML 50ML SYR IV ONE (02:00)
[2018-09-24] MEDS ORDERED: DEXTROSE 50% WATER 50ML SYRINGE IV ONE (02:00)
[2018-09-24 02:11] LABS: PLATELET ESTIMATE NORMAL
[2018-09-24] MEDS ORDERED: SODIUM POLYSTYRENE SULFONATE 15 G/60 ML BOT PO NR (03:15)
[2018-09-24] MEDS ORDERED: ACETAMINOPHEN 325MG TABLET PO PRN (09:30)
[2018-09-24] MEDS ORDERED: ONDANSETRON HCL 4MG/2ML INJ IV PRN (09:30)
[2018-09-24] MEDS ORDERED: IPRATROPIUM/ALBUTEROL 0.5-3(2.5)MG/3ML NEB INH PRN (09:30)
[2018-09-24] MEDS ORDERED: DEXTROSE 50% WATER 50ML SYRINGE IV PRN (11:00)
[2018-09-24] MEDS: BLOOD SUGAR DIAGNOSTIC STRIP TEST SCH ×3 (11:56→20:27)
[2018-09-24] MEDS: INSULIN LISPRO 100 UNITS/ML SUBCUT SCH ×3 (11:56→20:35)
[2018-09-24] MEDS: CLONIDINE 0.1MG TABLET PO SCH ×2 (15:12→21:50)
[2018-09-25] VITALS (18 sets, daily range): BP systolic 148–183; BP diastolic 82–113
[2018-09-25 06:22] LABS: CLARITY URINE CLEAR (CLEAR); COLOR URINE YELLOW (YELLOW); KETONES URINE NEGATIVE (NEGATIVE); LEUKOCYTE ESTERASE URINE NEGATIVE (NEGATIVE); NITRITE URINE NEGATIVE (NEGATIVE); OCCULT BLOOD URINE 1+ (NEGATIVE); PH URINE 5.5 (4.5-8.0); PROTEIN URINE 4+ (NEGATIVE); SPECIFIC GRAVITY URINE 1.019 (1.005-1.030); UROBILINOGEN URINE 0.2 E.U./dL (0.2-1.0)
[2018-09-25] MEDS: CLONIDINE 0.1MG TABLET PO SCH ×3 (06:49→20:45)
[2018-09-25 07:32] LABS: *AMPHETAMINES SCREEN URINE NEGATIVE (NEGATIVE); *BARBITURATES SCREEN URINE NEGATIVE (NEGATIVE); *BENZODIAZEPINES SCREEN URINE NEGATIVE (NEGATIVE); *COCAINE SCREEN URINE NEGATIVE (NEGATIVE); METHADONE URINE SCREEN NEGATIVE (NEGATIVE); OPIATES URINE SCREEN PRESUMTIVE POSITIVE (NEGATIVE)
[2018-09-25 07:33] LABS: CANNABINOID URINE SCREEN NEGATIVE (NEGATIVE); PHENCYCLIDINE URINE SCREEN NEGATIVE (NEGATIVE)
[2018-09-25] MEDS: BLOOD SUGAR DIAGNOSTIC STRIP TEST SCH ×4 (08:30→20:44)
[2018-09-25] MEDS: INSULIN LISPRO 100 UNITS/ML SUBCUT SCH ×4 (08:30→20:44)
[2018-09-25] MEDS ORDERED: AMLODIPINE 5MG TABLET PO NR (12:00)
[2018-09-25] MEDS: HYDROCODONE/ACETAMINOPHEN 5/325MG TABLET PO PRN ×2 (15:20→20:51)
[2018-09-25] MEDS ORDERED: HEPARIN SODIUM 1,000 UNIT/1ML VIAL IV NR (15:57)
[2018-09-25 16:42] LABS: HEMOGLOBIN. 7.3 g/dL (14.0-18.0)
[2018-09-25 16:57] LABS: HEMATOCRIT. 23.1 % (42.0-52.0); MEAN CORPUSCULAR HEMOGLOBIN 23.9 pg (28.0-32.0); MEAN CORPUSCULAR VOLUME 75.7 fL (80.0-94.0); MEAN PLATELET VOLUME 8.9 fl (7.4-10.4); PLATELET 296 x1000/uL (130-400); RED BLOOD CELL COUNT 3.06 mill/uL (4.7-6.1); RED CELL DISTRIBUTION WIDTH 18.7 % (11.6-14.6)
[2018-09-25] MEDS: CLONIDINE 0.1MG TABLET PO PRN ×2 (19:42→20:43)
[2018-09-25 20:50] LABS: PLATELET ESTIMATE NORMAL
[2018-09-25] MEDS ORDERED: CARVEDILOL 6.25 MG TABLET PO SCH (21:00)
[2018-09-26] VITALS (8 sets, daily range): BP systolic 143–172; BP diastolic 80–104
[2018-09-26] MEDS: HYDROCODONE/ACETAMINOPHEN 5/325MG TABLET PO PRN ×2 (02:02→13:43)
[2018-09-26] MEDS: CLONIDINE 0.1MG TABLET PO SCH ×2 (05:17→13:42)
[2018-09-26] MEDS: BLOOD SUGAR DIAGNOSTIC STRIP TEST SCH ×3 (07:33→17:11)
[2018-09-26] MEDS: INSULIN LISPRO 100 UNITS/ML SUBCUT SCH ×3 (08:00→17:29)
[2018-09-26] MEDS ORDERED: AMLODIPINE 5MG TABLET PO SCH ×2 (09:00)
[2018-09-26] MEDS ORDERED: CARVEDILOL 12.5MG TABLET PO SCH (09:00)
[2018-09-26 11:05] LABS: HEMATOCRIT. 22.4 % (42.0-52.0); HEMOGLOBIN. 7.2 g/dL (14.0-18.0); MEAN CORPUSCULAR HEMOGLOBIN 24.3 pg (28.0-32.0); MEAN CORPUSCULAR VOLUME 75.9 fL (80.0-94.0); MEAN PLATELET VOLUME 9.5 fl (7.4-10.4); PLATELET 280 x1000/uL (130-400); RED BLOOD CELL COUNT 2.94 mill/uL (4.7-6.1)
[2018-09-26 11:31] LABS: PLATELET ESTIMATE NORMAL
[2018-09-26] MEDS: CLONIDINE 0.1MG TABLET PO PRN (12:25)
== END 2018-09-26 20:19 | disposition home or self-care (01) | DRG 190 ==
LOC: ER 19:52 → 5EST 09-24 01:55 → EDBEDREQ 09-24 01:56 → ENRESERV 09-24 03:50
PROVIDERS: ADMIT Internal Medicine; ATTEND Internal Medicine
PROC: 5A1D70Z Performance of Urinary Filtration, Intermittent, Less than 6 Hours Per Day (ICD-10-PCS; principal; 2018-09-25)
PROC: 02HV33Z Insertion of Infusion Device into Superior Vena Cava, Percutaneous Approach (ICD-10-PCS; 2018-09-25)
PROC: B5181ZA Fluoroscopy of Superior Vena Cava using Low Osmolar Contrast, Guidance (ICD-10-PCS; 2018-09-25)
PROC: B548ZZA Ultrasonography of Superior Vena Cava, Guidance (ICD-10-PCS; 2018-09-25)
DX: I21.4 Non-ST elevation (NSTEMI) myocardial infarction (principal); I13.2 Hypertensive heart and chronic kidney disease with heart failure and with stage 5 chronic kidney disease, or end stage renal disease; E11.21 Type 2 diabetes mellitus with diabetic nephropathy; E87.2 Acidosis; E11.22 Type 2 diabetes mellitus with diabetic chronic kidney disease; F11.20 Opioid dependence, uncomplicated; E11.319 Type 2 diabetes mellitus with unspecified diabetic retinopathy without macular edema; D63.8 Anemia in other chronic diseases classified elsewhere; E11.40 Type 2 diabetes mellitus with diabetic neuropathy, unspecified; E11.36 Type 2 diabetes mellitus with diabetic cataract; E11.51 Type 2 diabetes mellitus with diabetic peripheral angiopathy without gangrene; E78.5 Hyperlipidemia, unspecified; E78.00 Pure hypercholesterolemia, unspecified; E87.5 Hyperkalemia; F17.200 Nicotine dependence, unspecified, uncomplicated; G89.4 Chronic pain syndrome; H40.9 Unspecified glaucoma; H43.12 Vitreous hemorrhage, left eye; H54.61 Unqualified visual loss, right eye, normal vision left eye; I50.9 Heart failure, unspecified; L02.31 Cutaneous abscess of buttock; M19.90 Unspecified osteoarthritis, unspecified site; N18.6 End stage renal disease; Z86.73 Personal history of transient ischemic attack (TIA), and cerebral infarction without residual deficits; Z86.74 Personal history of sudden cardiac arrest; Z91.81 History of falling; Z95.5 Presence of coronary angioplasty implant and graft; Z99.2 Dependence on renal dialysis; Z91.19 Patient's noncompliance with other medical treatment and regimen; Z79.84 Long term (current) use of oral hypoglycemic drugs
CPT/HCPCS: 36415; 36569; 71045; 76937; 77001; 80048; 80305; 82962; 83605; 84145; 84484; 86850; 86900; 86920; 93005; 93306; 93970; 97116; 97162; 99285; C1725; C1769; J1200; J1644; J1650; J1815; J1885; J3490

== ENCOUNTER 2018-09-28 04:23 | Emergency (ER) | payer MEDICAID ==
[~2018-09-28] VITALS: Ht 182.9 cm; Wt 91.0 kg
[2018-09-28 07:22] LABS: HEMATOCRIT. 26.5 % (42.0-52.0); HEMOGLOBIN. 8.3 g/dL (14.0-18.0); MEAN CORPUSCULAR HEMOGLOBIN 23.8 pg (28.0-32.0); MEAN CORPUSCULAR VOLUME 75.6 fL (80.0-94.0); MEAN PLATELET VOLUME 9.1 fl (7.4-10.4); PLATELET 358 x1000/uL (130-400); RED CELL DISTRIBUTION WIDTH 18.8 % (11.6-14.6)
[2018-09-28 07:29] LABS: CHLORIDE 103 mEq/L (98-107)
[2018-09-28 07:30] LABS: INR 1.2; PARTIAL THROMBOPLASTIN TIME 28.9 sec (23.4-31.0); PROTHROMBIN TIME 11.9 sec (9.1-11.1)
[2018-09-28 08:18] LABS: PLATELET ESTIMATE NORMAL
[2018-09-28] MEDS ORDERED: SODIUM POLYSTYRENE SULFONATE 15 G/60 ML BOT PO ONE (09:15)
[2018-09-28 10:08] VITALS: BP 163/98
== END 2018-09-28 12:02 | disposition home or self-care (01) ==
LOC: ER 04:23
DX: R60.0 Localized edema (principal); E78.00 Pure hypercholesterolemia, unspecified; I10 Essential (primary) hypertension; I25.2 Old myocardial infarction; I13.11 Hypertensive heart and chronic kidney disease without heart failure, with stage 5 chronic kidney disease, or end stage renal disease; E11.22 Type 2 diabetes mellitus with diabetic chronic kidney disease; N18.6 End stage renal disease; Z88.6 Allergy status to analgesic agent; Z98.890 Other specified postprocedural states
CPT/HCPCS: 36415; 71045; 80048; 83880; 84484; 93005; 93970; 99284

== ENCOUNTER 2018-09-29 07:45 | Inpatient (IN) | payer MEDICAID ==
[~2018-09-29] VITALS: Ht 182.9 cm; Wt 102.1 kg
[2018-09-29] MEDS ORDERED: LIDOCAINE HCL 1% 20ML VIAL (Pyxis) INJ ONE (10:41)
[2018-09-29 11:52] LABS: HEMATOCRIT. 24.2 % (42.0-52.0); HEMOGLOBIN. 7.7 g/dL (14.0-18.0); MEAN CORPUSCULAR VOLUME 74.9 fL (80.0-94.0); MEAN PLATELET VOLUME 8.5 fl (7.4-10.4); PLATELET 332 x1000/uL (130-400); RED BLOOD CELL COUNT 3.23 mill/uL (4.7-6.1); RED CELL DISTRIBUTION WIDTH 18.8 % (11.6-14.6)
[2018-09-29 11:57] LABS: CHLORIDE 105 mEq/L (98-107)
[2018-09-29 11:58] LABS: INR 1.3; PROTHROMBIN TIME 12.7 sec (9.1-11.1)
[2018-09-29 12:13] LABS: PLATELET ESTIMATE NORMAL
[2018-09-29] MEDS ORDERED: ASPIRIN 325MG EC TABLET PO ONE (13:30)
[2018-09-29 15:20] VITALS: BP 192/118
[2018-09-29 15:39] VITALS: BP 192/118
[2018-09-29] MEDS ORDERED: CLONIDINE 0.1MG TABLET PO PRN (16:15)
[2018-09-29] MEDS ORDERED: ONDANSETRON HCL 4MG/2ML INJ IV PRN (16:15)
[2018-09-29] MEDS ORDERED: ACETAMINOPHEN 325MG TABLET PO PRN (16:15)
[2018-09-29] MEDS ORDERED: HYDRALAZINE 20MG/ML VIAL IV PRN (16:45)
[2018-09-29] MEDS: LOSARTAN POTASSIUM 100 MG TABLET PO SCH (16:50)
[2018-09-29] MEDS: NIFEDIPINE XL 60MG TAB PO SCH (16:50)
[2018-09-29] MEDS ORDERED: LABETALOL HCL 20MG/4ML CARPUJECT IV NR (17:15)
[2018-09-29] MEDS ORDERED: LABETALOL 5MG/ML SYR 20 MG/4 ML SYRINGE IV NR (17:15)
[2018-09-29 20:00] VITALS: BP 178/83
[2018-09-29] MEDS ORDERED: EPOETIN ALFA 10000UNITS/ML VIAL SUBCUT SCH (21:00)
[2018-09-29] MEDS: CARVEDILOL 12.5MG TABLET PO SCH (21:51)
[2018-09-29] MEDS: HYDROCODONE/ACETAMINOPHEN 10/325MG TABLET PO PRN (21:51)
[2018-09-30] VITALS (7 sets, daily range): BP systolic 121–157; BP diastolic 66–90
[2018-09-30] MEDS: HYDROCODONE/ACETAMINOPHEN 10/325MG TABLET PO PRN ×2 (08:41→16:54)
[2018-09-30] MEDS: CARVEDILOL 12.5MG TABLET PO SCH ×2 (08:46→21:26)
[2018-09-30] MEDS: NIFEDIPINE XL 60MG TAB PO SCH ×2 (08:47→21:26)
[2018-09-30] MEDS: LOSARTAN POTASSIUM 100 MG TABLET PO SCH (08:47)
[2018-09-30 09:34] LABS: HEMATOCRIT. 26.7 % (42.0-52.0); HEMOGLOBIN. 8.3 g/dL (14.0-18.0); MEAN CORPUSCULAR HEMOGLOBIN 23.3 pg (28.0-32.0); MEAN CORPUSCULAR VOLUME 74.9 fL (80.0-94.0); MEAN PLATELET VOLUME 9.5 fl (7.4-10.4); PLATELET 410 x1000/uL (130-400); RED BLOOD CELL COUNT 3.56 mill/uL (4.7-6.1); RED CELL DISTRIBUTION WIDTH 21.5 % (11.6-14.6)
[2018-09-30] MEDS ORDERED: DEXTROSE 50% WATER 50ML SYRINGE IV PRN (11:00)
[2018-09-30] MEDS: BLOOD SUGAR DIAGNOSTIC STRIP TEST SCH ×3 (11:26→21:29)
[2018-09-30] MEDS: INSULIN LISPRO 100 UNITS/ML SUBCUT SCH ×3 (12:50→21:32)
[2018-09-30 14:03] LABS: PLATELET ESTIMATE INCREASED
[2018-10-01 00:51] VITALS: BP 163/90
[2018-10-01] MEDS: HYDROCODONE/ACETAMINOPHEN 10/325MG TABLET PO PRN (03:52)
[2018-10-01 04:38] VITALS: BP 158/86
[2018-10-01] MEDS: BLOOD SUGAR DIAGNOSTIC STRIP TEST SCH (06:23)
[2018-10-01] MEDS: INSULIN LISPRO 100 UNITS/ML SUBCUT SCH (07:50)
[2018-10-01 08:30] VITALS: BP 140/81
[2018-10-01] MEDS: CARVEDILOL 12.5MG TABLET PO SCH (09:00)
[2018-10-01] MEDS: NIFEDIPINE XL 60MG TAB PO SCH (09:00)
[2018-10-01] MEDS: LOSARTAN POTASSIUM 100 MG TABLET PO SCH (09:00)
== END 2018-10-01 10:50 | disposition home health service (06) | DRG 194 ==
LOC: ER 07:45 → 6WST 12:37 → EDBEDREQ 12:42 → ENRESERV 13:40
PROVIDERS: ADMIT Internal Medicine; ATTEND Internal Medicine
PROC: 02HV33Z Insertion of Infusion Device into Superior Vena Cava, Percutaneous Approach (ICD-10-PCS; principal; 2018-09-29)
PROC: B548ZZA Ultrasonography of Superior Vena Cava, Guidance (ICD-10-PCS; 2018-09-29)
PROC: B5181ZA Fluoroscopy of Superior Vena Cava using Low Osmolar Contrast, Guidance (ICD-10-PCS; 2018-09-29)
PROC: 5A1D70Z Performance of Urinary Filtration, Intermittent, Less than 6 Hours Per Day (ICD-10-PCS; 2018-09-30)
PROC: 5A1D70Z Performance of Urinary Filtration, Intermittent, Less than 6 Hours Per Day (ICD-10-PCS; 2018-10-01)
DX: I13.2 Hypertensive heart and chronic kidney disease with heart failure and with stage 5 chronic kidney disease, or end stage renal disease (principal); G93.49 Other encephalopathy; E11.40 Type 2 diabetes mellitus with diabetic neuropathy, unspecified; E11.22 Type 2 diabetes mellitus with diabetic chronic kidney disease; E44.0 Moderate protein-calorie malnutrition; E11.319 Type 2 diabetes mellitus with unspecified diabetic retinopathy without macular edema; F11.20 Opioid dependence, uncomplicated; I50.23 Acute on chronic systolic (congestive) heart failure; I16.0 Hypertensive urgency; N18.6 End stage renal disease; I42.9 Cardiomyopathy, unspecified; E87.5 Hyperkalemia; D63.8 Anemia in other chronic diseases classified elsewhere; E78.5 Hyperlipidemia, unspecified; I25.10 Atherosclerotic heart disease of native coronary artery without angina pectoris; Z99.2 Dependence on renal dialysis; Z86.73 Personal history of transient ischemic attack (TIA), and cerebral infarction without residual deficits; Z95.5 Presence of coronary angioplasty implant and graft; H26.9 Unspecified cataract; M86.9 Osteomyelitis, unspecified; Z88.9 Allergy status to unspecified drugs, medicaments and biological substances; Z88.5 Allergy status to narcotic agent; I25.2 Old myocardial infarction; Z87.891 Personal history of nicotine dependence; Z86.74 Personal history of sudden cardiac arrest; Z91.15 Patient's noncompliance with renal dialysis; Z91.19 Patient's noncompliance with other medical treatment and regimen; G47.33 Obstructive sleep apnea (adult) (pediatric); E11.51 Type 2 diabetes mellitus with diabetic peripheral angiopathy without gangrene; Z79.4 Long term (current) use of insulin; Z98.49 Cataract extraction status, unspecified eye; G89.29 Other chronic pain; R74.0 Nonspecific elevation of levels of transaminase and lactic acid dehydrogenase [LDH]; E11.69 Type 2 diabetes mellitus with other specified complication; Z68.30 Body mass index [BMI] 30.0-30.9, adult
CPT/HCPCS: 36415; 36569; 71045; 76937; 77001; 80048; 82962; 83036; 84484; 93005; 97162; 99285; C1725; C1769; J0885; J1815; J2405; J3490; J7040

== ENCOUNTER 2018-11-24 01:33 | Inpatient (IN) | payer MEDICAID ==
[~2018-11-24] VITALS: Ht 182.9 cm; Wt 90.7 kg
[2018-11-24] MEDS ORDERED: MORPHINE SULFATE 4 MG/ML CPJ (NOT FOR IM USE) IV STA (06:34)
[2018-11-24 07:13] LABS: HEMATOCRIT. 27.7 % (42.0-52.0); HEMOGLOBIN. 8.7 g/dL (14.0-18.0); MEAN CORPUSCULAR HEMOGLOBIN 22.5 pg (28.0-32.0); MEAN CORPUSCULAR VOLUME 71.7 fL (80.0-94.0); PLATELET 445 x1000/uL (130-400); RED BLOOD CELL COUNT 3.87 mill/uL (4.7-6.1); RED CELL DISTRIBUTION WIDTH 19.7 % (11.6-14.6)
[2018-11-24 07:17] LABS: CHLORIDE 101 mEq/L (98-107)
[2018-11-24 07:21] LABS: INR 1.3; PARTIAL THROMBOPLASTIN TIME 28.7 sec (23.4-31.0); PROTHROMBIN TIME 12.6 sec (9.1-11.1)
[2018-11-24 07:22] LABS: ETHANOL BLOOD < 10 mg/dL
[2018-11-24 08:05] LABS: NUCLEATED RED BLOOD CELLS 1 /100 WBC
[2018-11-24 08:06] LABS: PLATELET ESTIMATE SLIGHTLY INCREASED
[2018-11-24] MEDS ORDERED: ACETAMINOPHEN 325MG TABLET PO PRN (10:15)
[2018-11-24] MEDS ORDERED: DEXTROSE 50% WATER 50ML SYRINGE IV PRN (10:15)
[2018-11-24] MEDS ORDERED: ONDANSETRON HCL 4MG/2ML INJ IV PRN (10:15)
[2018-11-24] MEDS ORDERED: CLONIDINE 0.1MG TABLET PO PRN (10:15)
[2018-11-24] MEDS ORDERED: NIFEDIPINE XL 60MG TAB PO NR (11:00)
[2018-11-24] MEDS: LOSARTAN POTASSIUM 100 MG TABLET PO SCH (11:00)
[2018-11-24 11:50] LABS: TOTAL IRON BINDING CAPACITY 257 ug/dL (250-450)
[2018-11-24] MEDS: HYDROCODONE/ACETAMINOPHEN 5/325MG TABLET PO PRN ×3 (13:15→21:28)
[2018-11-25] VITALS (7 sets, daily range): BP systolic 134–161; BP diastolic 78–103
[2018-11-25] MEDS: GABAPENTIN 300MG CAPSULE PO SCH ×3 (06:00→12:53)
[2018-11-25] MEDS: HYDROCODONE/ACETAMINOPHEN 5/325MG TABLET PO PRN ×2 (06:46→12:10)
[2018-11-25] MEDS: BLOOD SUGAR DIAGNOSTIC STRIP TEST SCH ×2 (06:50→12:53)
[2018-11-25] MEDS: INSULIN LISPRO 100 UNITS/ML SUBCUT SCH ×2 (06:51→12:40)
[2018-11-25] MEDS: DOCUSATE SODIUM 100MG CAPSULE PO SCH ×2 (09:00→12:53)
[2018-11-25] MEDS: LOSARTAN POTASSIUM 100 MG TABLET PO SCH (09:00)
[2018-11-25] MEDS ORDERED: EPOETIN ALFA 10000UNITS/ML VIAL SUBCUT SCH (09:00)
[2018-11-25] MEDS ORDERED: NIFEDIPINE XL 60MG TAB PO SCH (09:00)
[2018-11-25] MEDS: FERROUS SULFATE 325MG TABLET PO SCH ×2 (09:49→12:40)
[2018-11-25 10:04] LABS: HEMATOCRIT. 26.7 % (42.0-52.0); HEMOGLOBIN. 8.5 g/dL (14.0-18.0); MEAN CORPUSCULAR HEMOGLOBIN 22.3 pg (28.0-32.0); MEAN CORPUSCULAR VOLUME 70.3 fL (80.0-94.0); MEAN PLATELET VOLUME 8.5 fl (7.4-10.4); PLATELET 447 x1000/uL (130-400); RED BLOOD CELL COUNT 3.81 mill/uL (4.7-6.1); RED CELL DISTRIBUTION WIDTH 20.4 % (11.6-14.6)
[2018-11-25 13:46] LABS: PLATELET ESTIMATE INCREASED
[2019-01-18] MEDS ORDERED: MORP15TA67 MT (05:35)
[2019-01-18] MEDS ORDERED: HYDR8TAB2 MT (05:35)
[2019-01-24] MEDS ORDERED: S350 PO (19:15)
== END 2018-11-25 16:10 | disposition home or self-care (01) | DRG 194 ==
LOC: ER 01:33 → 8WST 08:51 → ENRESERV 21:57
PROVIDERS: ADMIT Internal Medicine; ATTEND Internal Medicine
PROC: 5A1D70Z Performance of Urinary Filtration, Intermittent, Less than 6 Hours Per Day (ICD-10-PCS; principal; 2018-11-24)
DX: I13.2 Hypertensive heart and chronic kidney disease with heart failure and with stage 5 chronic kidney disease, or end stage renal disease (principal); G93.40 Encephalopathy, unspecified; E11.22 Type 2 diabetes mellitus with diabetic chronic kidney disease; E44.0 Moderate protein-calorie malnutrition; E11.319 Type 2 diabetes mellitus with unspecified diabetic retinopathy without macular edema; F11.20 Opioid dependence, uncomplicated; E11.36 Type 2 diabetes mellitus with diabetic cataract; E11.40 Type 2 diabetes mellitus with diabetic neuropathy, unspecified; G89.29 Other chronic pain; R09.02 Hypoxemia; E11.51 Type 2 diabetes mellitus with diabetic peripheral angiopathy without gangrene; E11.618 Type 2 diabetes mellitus with other diabetic arthropathy; N18.6 End stage renal disease; I42.9 Cardiomyopathy, unspecified; D63.8 Anemia in other chronic diseases classified elsewhere; E78.5 Hyperlipidemia, unspecified; I25.10 Atherosclerotic heart disease of native coronary artery without angina pectoris; I50.21 Acute systolic (congestive) heart failure; Z86.73 Personal history of transient ischemic attack (TIA), and cerebral infarction without residual deficits; Z99.2 Dependence on renal dialysis; Z68.27 Body mass index [BMI] 27.0-27.9, adult; Z79.899 Other long term (current) drug therapy; Z88.4 Allergy status to anesthetic agent; Z88.8 Allergy status to other drugs, medicaments and biological substances
CPT/HCPCS: 36415; 71045; 80048; 82728; 82962; 83540; 83550; 83880; 84484; 93005; 93970; 96365; 96375; 97161; 99285; J0885; J2270

== ENCOUNTER 2018-12-14 13:12 | Inpatient (IN) | payer MEDICAID ==
[~2018-12-14] VITALS: Ht 177.8 cm; Wt 95.4 kg
[2018-12-14] MEDS ORDERED: MORPHINE SULFATE 4 MG/ML CPJ (NOT FOR IM USE) IV STA (14:43)
[2018-12-14] MEDS ORDERED: ONDANSETRON HCL 4MG/2ML INJ IV STA (14:43)
[2018-12-14] MEDS ORDERED: HYDRALAZINE 20MG/ML VIAL IV ONE (14:45)
[2018-12-14] MEDS ORDERED: LIDOCAINE HCL 1% 20ML VIAL (Pyxis) INJ ONE (15:18)
[2018-12-14] MEDS ORDERED: SODIUM BICARBONATE 4% (2.4MEQ) 5ML VIAL IV ONE (15:18)
[2018-12-14] MEDS ORDERED: CEFAZOLIN 1000MG PREMIX 50 ML IV ONE ×2 (15:18→16:00)
[2018-12-14 15:20] VITALS: BP 180/123
[2018-12-14 15:30] VITALS: BP 180/123
[2018-12-14 15:34] LABS: HEMATOCRIT. 27.6 % (42.0-52.0); HEMOGLOBIN. 8.5 g/dL (14.0-18.0); MEAN CORPUSCULAR HEMOGLOBIN 22.3 pg (28.0-32.0); MEAN CORPUSCULAR VOLUME 72.1 fL (80.0-94.0); MEAN PLATELET VOLUME 9.6 fl (7.4-10.4); PLATELET 314 x1000/uL (130-400); RED BLOOD CELL COUNT 3.83 mill/uL (4.7-6.1); RED CELL DISTRIBUTION WIDTH 26.3 % (11.6-14.6)
[2018-12-14 15:40] LABS: CHLORIDE 96 mEq/L (98-107)
[2018-12-14 15:42] LABS: INR 1.4; PARTIAL THROMBOPLASTIN TIME 32.6 sec (23.4-31.0); PROTHROMBIN TIME 13.7 sec (9.1-11.1)
[2018-12-14 15:44] VITALS: BP_SYST 180; BP_SYST 183; BP_DIAS 122; BP_DIAS 123
[2018-12-14 15:54] VITALS: BP_SYST 180; BP_SYST 183; BP_DIAS 122; BP_DIAS 123
[2018-12-14 15:56] VITALS: BP_SYST 180; BP_SYST 183; BP_DIAS 122; BP_DIAS 123
[2018-12-14 16:21] LABS: NUCLEATED RED BLOOD CELLS 1 /100 WBC; PLATELET ESTIMATE NORMAL
[2018-12-14] MEDS ORDERED: VANCOMYCIN 1 G PREMIX 200 ML IV ONE (16:30)
[2018-12-14] MEDS ORDERED: SODIUM CHLORIDE 0.9% 1000ML BAG (SEPSIS BOLUS) IV ONE (16:30)
[2018-12-14] MEDS ORDERED: CLONIDINE 0.2MG TABLET PO ONE (17:45)
[2018-12-14] MEDS ORDERED: HYDROCODONE/ACETAMINOPHEN 5/325MG TABLET PO PRN (23:00)
[2018-12-14] MEDS ORDERED: DOCUSATE SODIUM 100MG CAPSULE PO PRN (23:00)
[2018-12-14] MEDS ORDERED: GUAIFENESIN 200MG/10ML SUGAR FREE UDC PO PRN (23:00)
[2018-12-14] MEDS ORDERED: IPRATROPIUM/ALBUTEROL 0.5-3(2.5)MG/3ML NEB INH PRN (23:00)
[2018-12-14] MEDS ORDERED: MAGNESIUM/ALUMINUM HYDROXIDE/SIMETHICONE 30ML UDC PO PRN (23:00)
[2018-12-15] MEDS: HYDROCODONE/APAP 7.5/325MG 1 TAB TABLET PO PRN ×2 (01:26→05:52)
[2018-12-15] MEDS: DIPHENHYDRAMINE 50MG/ML VIAL IV PRN ×2 (04:18→08:19)
[2018-12-15 05:27] LABS: HEMATOCRIT. 24.9 % (42.0-52.0); HEMOGLOBIN. 7.7 g/dL (14.0-18.0); MEAN CORPUSCULAR HEMOGLOBIN 22.2 pg (28.0-32.0); MEAN CORPUSCULAR VOLUME 71.4 fL (80.0-94.0); MEAN PLATELET VOLUME 10.4 fl (7.4-10.4); PLATELET 334 x1000/uL (130-400); RED BLOOD CELL COUNT 3.48 mill/uL (4.7-6.1); RED CELL DISTRIBUTION WIDTH 26.3 % (11.6-14.6)
[2018-12-15 05:46] LABS: PHOSPHORUS 8.7 mg/dL (2.5-4.9)
[2018-12-15 06:26] LABS: NUCLEATED RED BLOOD CELLS 4 /100 WBC; PLATELET ESTIMATE NORMAL
[2018-12-15] MEDS: CLONIDINE 0.1MG TABLET PO PRN ×2 (08:19→17:15)
[2018-12-15] MEDS ORDERED: GENTAMICIN 100MG PREMIX 100 ML IV NR (10:00)
[2018-12-15] MEDS ORDERED: GENTAMICIN 100MG PREMIX 50 ML IV SCH (10:15)
[2018-12-15 18:37] VITALS: BP 169/117
[2018-12-15] MEDS ORDERED: CLONIDINE 0.1MG TABLET PO PRN (18:45)
[2018-12-15 20:00] VITALS: BP_SYST 123; BP_SYST 183; BP_DIAS 121
[2018-12-15] MEDS ORDERED: NIFEDIPINE XL 30MG TAB PO SCH (20:00)
[2018-12-16] VITALS: BP 180/100
[2018-12-16] MEDS: NIFEDIPINE XL 30MG TAB PO SCH ×2 (01:39→08:31)
[2018-12-16 04:00] VITALS: BP 140/86
[2018-12-16 06:02] VITALS: BP 129/75
[2018-12-16 08:00] VITALS: BP 110/63
[2018-12-16 16:00] VITALS: BP 120/60
[2018-12-16 20:00] VITALS: BP 105/59
[2018-12-16] MEDS ORDERED: EPOETIN ALFA 10000UNITS/ML VIAL SUBCUT SCH (21:00)
[2018-12-17] VITALS: BP 124/74
[2018-12-17 04:00] VITALS: BP 121/81
[2018-12-17 08:00] VITALS: BP 134/83
[2018-12-17 09:19] LABS: HEMATOCRIT. 25.9 % (42.0-52.0); HEMOGLOBIN. 8.2 g/dL (14.0-18.0); MEAN CORPUSCULAR HEMOGLOBIN 22.4 pg (28.0-32.0); MEAN CORPUSCULAR VOLUME 70.8 fL (80.0-94.0); MEAN PLATELET VOLUME 9.6 fl (7.4-10.4); PLATELET 328 x1000/uL (130-400); RED BLOOD CELL COUNT 3.66 mill/uL (4.7-6.1); RED CELL DISTRIBUTION WIDTH 25.7 % (11.6-14.6)
[2018-12-17] MEDS: NIFEDIPINE XL 30MG TAB PO SCH (09:41)
[2018-12-17] MEDS: SEVELAMER CARBONATE 800 MG TABLET PO SCH ×3 (09:59→18:10)
[2018-12-17] MEDS ORDERED: ASPIRIN 81MG EC TABLET PO SCH (10:00)
[2018-12-17 12:00] VITALS: BP 142/81
[2018-12-17] MEDS ORDERED: HEPARIN SODIUM 1,000 UNIT/1ML VIAL IV SCH (13:00)
[2018-12-17 16:00] VITALS: BP 152/88
[2018-12-17 18:09] VITALS: BP 152/88
[2018-12-18 13:27] LABS: PLATELET ESTIMATE NORMAL
[2019-01-18] MEDS ORDERED: MORP15TA67 MT (05:35)
[2019-01-18] MEDS ORDERED: HYDR8TAB2 MT (05:35)
[2019-01-24] MEDS ORDERED: S350 PO (19:15)
== END 2018-12-17 20:00 | disposition home or self-care (01) | DRG 720 ==
LOC: ER 13:27 → ENRESERV 12-15 15:43 → 7WST 12-15 17:47 → UNDODISIN 12-15 19:07
PROVIDERS: ADMIT Family Medicine Adult Medicine; ATTEND Family Medicine Adult Medicine
PROC: 5A1D70Z Performance of Urinary Filtration, Intermittent, Less than 6 Hours Per Day (ICD-10-PCS; 2018-12-14)
PROC: 5A1D70Z Performance of Urinary Filtration, Intermittent, Less than 6 Hours Per Day (ICD-10-PCS; principal; 2018-12-17)
DX: A41.9 Sepsis, unspecified organism (principal); I13.2 Hypertensive heart and chronic kidney disease with heart failure and with stage 5 chronic kidney disease, or end stage renal disease; G93.40 Encephalopathy, unspecified; E46 Unspecified protein-calorie malnutrition; D68.9 Coagulation defect, unspecified; E11.22 Type 2 diabetes mellitus with diabetic chronic kidney disease; E11.40 Type 2 diabetes mellitus with diabetic neuropathy, unspecified; N18.6 End stage renal disease; R18.8 Other ascites; E11.319 Type 2 diabetes mellitus with unspecified diabetic retinopathy without macular edema; D63.1 Anemia in chronic kidney disease; E11.51 Type 2 diabetes mellitus with diabetic peripheral angiopathy without gangrene; H40.9 Unspecified glaucoma; I25.10 Atherosclerotic heart disease of native coronary artery without angina pectoris; I25.5 Ischemic cardiomyopathy; I50.9 Heart failure, unspecified; K21.9 Gastro-esophageal reflux disease without esophagitis; G89.29 Other chronic pain; F11.20 Opioid dependence, uncomplicated; M12.80 Other specific arthropathies, not elsewhere classified, unspecified site; Z82.49 Family history of ischemic heart disease and other diseases of the circulatory system; I25.2 Old myocardial infarction; Z86.73 Personal history of transient ischemic attack (TIA), and cerebral infarction without residual deficits; Z86.79 Personal history of other diseases of the circulatory system; Z91.14 Patient's other noncompliance with medication regimen; Z98.61 Coronary angioplasty status; Z99.2 Dependence on renal dialysis; Z68.30 Body mass index [BMI] 30.0-30.9, adult; Z79.84 Long term (current) use of oral hypoglycemic drugs
CPT/HCPCS: 36415; 36581; 71045; 74176; 77001; 80048; 83036; 83605; 83735; 83880; 84100; 84484; 87070; 87077; 87186; 93005; 93306; 93970; 96361; 96365; 96367; 96375; 99285; C1750; C1769; J0360; J0690; J0885; J1200; J1580; J1642; J1644; J2270; J2405; J3370; J3490; J7030

== ENCOUNTER 2018-12-23 10:51 | Inpatient (IN) | payer MEDICAID ==
[~2018-12-23] VITALS: Ht 175.3 cm; Wt 96.6 kg
[2018-12-23] MEDS ORDERED: NITROGLYCERIN OINT 1GM/INCH UDPKT TD ONE (11:45)
[2018-12-23 12:30] LABS: HEMATOCRIT. 27.5 % (42.0-52.0); HEMOGLOBIN. 8.5 g/dL (14.0-18.0); MEAN CORPUSCULAR HEMOGLOBIN 22.1 pg (28.0-32.0); MEAN CORPUSCULAR VOLUME 71.5 fL (80.0-94.0); MEAN PLATELET VOLUME 8.5 fl (7.4-10.4); PLATELET 449 x1000/uL (130-400); RED BLOOD CELL COUNT 3.84 mill/uL (4.7-6.1); RED CELL DISTRIBUTION WIDTH 26.3 % (11.6-14.6)
[2018-12-23 12:33] LABS: CHLORIDE 101 mEq/L (98-107)
[2018-12-23 12:36] LABS: ETHANOL BLOOD < 10 mg/dL
[2018-12-23 12:40] LABS: INR 1.3; PROTHROMBIN TIME 13.5 sec (9.1-11.1)
[2018-12-23] MEDS ORDERED: ALBUTEROL (0.083%) 2.5MG/3ML NEB HHN STA (12:49)
[2018-12-23] MEDS ORDERED: SODIUM BICARBONATE 8.4% 1 MEQ/ML 50ML SYR IV ONE (13:00)
[2018-12-23] MEDS ORDERED: DEXTROSE 50% WATER 50ML SYRINGE IV ONE (13:00)
[2018-12-23] MEDS ORDERED: INSULIN REGULAR (HUMULIN R) 300UNITS/3ML IV ONE (13:00)
[2018-12-23 13:42] LABS: PLATELET ESTIMATE INCREASED
[2018-12-23] MEDS ORDERED: DOCUSATE SODIUM 100MG CAPSULE PO PRN (16:00)
[2018-12-23] MEDS ORDERED: ENOXAPARIN 40MG/0.4ML SYR SUBCUT SCH (16:00)
[2018-12-23] MEDS ORDERED: GUAIFENESIN 200MG/10ML SUGAR FREE UDC PO PRN (16:00)
[2018-12-23] MEDS ORDERED: ACETAMINOPHEN 325MG TABLET PO PRN (16:00)
[2018-12-23] MEDS ORDERED: ONDANSETRON HCL 4MG/2ML INJ IV PRN (16:00)
[2018-12-23] MEDS ORDERED: ZOLPIDEM TARTRATE 5MG TABLET PO PRN (16:00)
[2018-12-23] MEDS ORDERED: IPRATROPIUM/ALBUTEROL 0.5-3(2.5)MG/3ML NEB INH PRN (16:00)
[2018-12-23] MEDS ORDERED: MAGNESIUM/ALUMINUM HYDROXIDE/SIMETHICONE 30ML UDC PO PRN (16:00)
[2018-12-23] MEDS ORDERED: DIPHENHYDRAMINE 50MG/ML VIAL IV PRN (16:00)
[2018-12-23] MEDS ORDERED: DEXTROSE 50% WATER 50ML SYRINGE IV PRN (16:00)
[2018-12-23] MEDS ORDERED: NITROGLYCERIN 0.4MG TABLET SL SL PRN (16:00)
[2018-12-23] MEDS: BLOOD SUGAR DIAGNOSTIC STRIP TEST SCH ×2 (16:50→21:33)
[2018-12-23] MEDS: INSULIN LISPRO 100 UNITS/ML SUBCUT SCH ×2 (17:20→21:00)
[2018-12-23] MEDS: SEVELAMER CARBONATE 800 MG TABLET PO SCH (17:20)
[2018-12-23] MEDS: CLONIDINE 0.1MG TABLET PO PRN (19:40)
[2018-12-23 20:00] VITALS: BP 183/124
[2018-12-23 20:24] VITALS: BP 172/122
[2018-12-23] MEDS ORDERED: EPOETIN ALFA 10000UNITS/ML VIAL SUBCUT SCH (21:00)
[2018-12-23] MEDS: FAMOTIDINE 20MG TABLET PO SCH (21:36)
[2018-12-23] MEDS: METOPROLOL TARTRATE 25MG TABLET PO SCH (21:36)
[2018-12-23] MEDS: HYDRALAZINE HCL 50MG TABLET PO SCH (21:36)
[2018-12-23 22:00] VITALS: BP 161/104
[2018-12-24] VITALS: BP 151/103
[2018-12-24 01:23] LABS: CREATINE KINASE MB FRACTION 20.2 ng/mL (0.5-3.6)
[2018-12-24 02:00] VITALS: BP 154/95
[2018-12-24 04:00] VITALS: BP 145/93
[2018-12-24] MEDS: HYDRALAZINE HCL 50MG TABLET PO SCH ×2 (05:54→14:00)
[2018-12-24] MEDS: CLONIDINE 0.1MG TABLET PO PRN (05:54)
[2018-12-24 06:00] VITALS: BP 146/100
[2018-12-24] MEDS: INSULIN LISPRO 100 UNITS/ML SUBCUT SCH ×2 (07:20→12:20)
[2018-12-24] MEDS: BLOOD SUGAR DIAGNOSTIC STRIP TEST SCH ×2 (07:40→11:50)
[2018-12-24 08:00] VITALS: BP 133/83
[2018-12-24] MEDS: FAMOTIDINE 20MG TABLET PO SCH (08:12)
[2018-12-24] MEDS: SEVELAMER CARBONATE 800 MG TABLET PO SCH ×2 (08:12→13:09)
[2018-12-24 08:13] LABS: CREATINE KINASE MB FRACTION 16.3 ng/mL (0.5-3.6)
[2018-12-24] MEDS: METOPROLOL TARTRATE 25MG TABLET PO SCH (08:13)
[2018-12-24] MEDS ORDERED: ASPIRIN 325MG EC TABLET PO SCH (09:00)
[2018-12-24] MEDS ORDERED: FOLIC ACID/VITAMIN B COMP W-C TABLET PO SCH (09:00)
[2018-12-24] MEDS ORDERED: AMLODIPINE 5MG TABLET PO SCH (09:00)
[2018-12-24 10:00] VITALS: BP 138/75
[2019-01-18] MEDS ORDERED: MORP15TA67 MT (05:35)
[2019-01-18] MEDS ORDERED: HYDR8TAB2 MT (05:35)
[2019-01-24] MEDS ORDERED: S350 PO (19:15)
== END 2018-12-24 14:58 | disposition home or self-care (01) | DRG 190 ==
LOC: ER 10:51 → 3WST 14:22 → EDBEDREQSVC 14:26 → EDBEDREQ 14:26 → ENRESERV 14:49
PROVIDERS: ADMIT Internal Medicine; ATTEND Internal Medicine
DX: I21.4 Non-ST elevation (NSTEMI) myocardial infarction (principal); G93.40 Encephalopathy, unspecified; I13.2 Hypertensive heart and chronic kidney disease with heart failure and with stage 5 chronic kidney disease, or end stage renal disease; E11.22 Type 2 diabetes mellitus with diabetic chronic kidney disease; E11.319 Type 2 diabetes mellitus with unspecified diabetic retinopathy without macular edema; F11.20 Opioid dependence, uncomplicated; E11.40 Type 2 diabetes mellitus with diabetic neuropathy, unspecified; E11.65 Type 2 diabetes mellitus with hyperglycemia; D63.8 Anemia in other chronic diseases classified elsewhere; E44.1 Mild protein-calorie malnutrition; G89.29 Other chronic pain; M79.606 Pain in leg, unspecified; D64.9 Anemia, unspecified; M12.9 Arthropathy, unspecified; E11.51 Type 2 diabetes mellitus with diabetic peripheral angiopathy without gangrene; N18.6 End stage renal disease; E87.1 Hypo-osmolality and hyponatremia; E87.5 Hyperkalemia; I25.10 Atherosclerotic heart disease of native coronary artery without angina pectoris; I25.5 Ischemic cardiomyopathy; I50.42 Chronic combined systolic (congestive) and diastolic (congestive) heart failure; I69.354 Hemiplegia and hemiparesis following cerebral infarction affecting left non-dominant side; Z76.5 Malingerer [conscious simulation]; Z87.891 Personal history of nicotine dependence; Z91.19 Patient's noncompliance with other medical treatment and regimen; Z99.2 Dependence on renal dialysis; Z88.8 Allergy status to other drugs, medicaments and biological substances
CPT/HCPCS: 36415; 71045; 80061; 80320; 82550; 82553; 82962; 83036; 84484; 93005; 93306; 93970; 94640; 96374; 96375; 99285; J0885; J1815; J3490; J7611; G0480

== ENCOUNTER 2018-12-29 05:47 | Inpatient (IN) | payer MEDICAID ==
[~2018-12-29] VITALS: Ht 182.9 cm; Wt 88.0 kg
[2018-12-29] MEDS ORDERED: ONDANSETRON HCL 4MG/2ML INJ IV STA (06:36)
[2018-12-29] MEDS ORDERED: MORPHINE SULFATE 4 MG/ML CPJ (NOT FOR IM USE) IV STA (06:36)
[2018-12-29 07:00] LABS: CLARITY URINE TURBID (CLEAR); COLOR URINE YELLOW (YELLOW); KETONES URINE NEGATIVE (NEGATIVE); LEUKOCYTE ESTERASE URINE 3+ (NEGATIVE); NITRITE URINE NEGATIVE (NEGATIVE); OCCULT BLOOD URINE 3+ (NEGATIVE); PH URINE 5.5 (4.5-8.0); PROTEIN URINE 4+ (NEGATIVE); SPECIFIC GRAVITY URINE 1.018 (1.005-1.030); UROBILINOGEN URINE 0.2 E.U./dL (0.2-1.0)
[2018-12-29 07:29] LABS: CHLORIDE 99 mEq/L (98-107); HEMATOCRIT. 27.3 % (42.0-52.0); HEMOGLOBIN. 8.3 g/dL (14.0-18.0); MEAN CORPUSCULAR HEMOGLOBIN 21.8 pg (28.0-32.0); MEAN PLATELET VOLUME 8.7 fl (7.4-10.4); PLATELET 427 x1000/uL (130-400); RED BLOOD CELL COUNT 3.79 mill/uL (4.7-6.1); RED CELL DISTRIBUTION WIDTH 26.4 % (11.6-14.6)
[2018-12-29 07:30] LABS: INR 1.3; PROTHROMBIN TIME 13.4 sec (9.1-11.1)
[2018-12-29 07:58] LABS: PLATELET ESTIMATE SLIGHTLY INCREASED
[2018-12-29] MEDS ORDERED: DEXTROSE 50% WATER 50ML SYRINGE IV SCH (08:00)
[2018-12-29] MEDS ORDERED: SODIUM BICARBONATE 8.4% 1 MEQ/ML 50ML SYR IV SCH (08:00)
[2018-12-29] MEDS ORDERED: CALCIUM CHLORIDE 1GM/10ML SYR IV SCH (08:00)
[2018-12-29] MEDS ORDERED: CEFTRIAXONE 1 G PREMIX 50 ML IV ONE (08:00)
[2018-12-29] MEDS ORDERED: ALBUTEROL (0.083%) 2.5MG/3ML NEB HHN SCH (08:00)
[2018-12-29] MEDS ORDERED: INSULIN REGULAR (HUMULIN R) 300UNITS/3ML IV SCH (08:00)
[2018-12-29] MEDS ORDERED: GUAIFENESIN 200MG/10ML SUGAR FREE UDC PO PRN (08:30)
[2018-12-29] MEDS ORDERED: DOCUSATE SODIUM 100MG CAPSULE PO PRN (08:30)
[2018-12-29] MEDS ORDERED: ONDANSETRON HCL 4MG/2ML INJ IV PRN (08:30)
[2018-12-29] MEDS ORDERED: MAGNESIUM/ALUMINUM HYDROXIDE/SIMETHICONE 30ML UDC PO PRN (08:30)
[2018-12-29] MEDS ORDERED: ACETAMINOPHEN 325MG TABLET PO PRN (08:30)
[2018-12-29 09:02] LABS: PHOSPHORUS 9.4 mg/dL (2.5-4.9)
[2018-12-29] MEDS: CLONIDINE 0.1MG TABLET PO PRN ×2 (09:46→19:26)
[2018-12-29 12:35] LABS: HEPATITIS B SURFACE ANTIGEN NEGATIVE
[2018-12-29] MEDS: MORPHINE SULFATE 4 MG/ML CPJ (NOT FOR IM USE) IV PRN ×2 (12:57→19:25)
[2018-12-29 13:05] LABS: HEPATITIS A AB IGM NEGATIVE (NEGATIVE)
[2018-12-29 18:43] LABS: CREATINE KINASE MB FRACTION 22.1 ng/mL (0.5-3.6)
[2018-12-29] MEDS ORDERED: HYDRALAZINE 20MG/ML VIAL IV NR ×2 (23:15)
[2018-12-29] MEDS ORDERED: DEXTROSE 50% WATER 50ML SYRINGE IV PRN (23:15)
[2018-12-30] VITALS (8 sets, daily range): BP systolic 126–173; BP diastolic 89–120
[2018-12-30] MEDS ORDERED: CEFTRIAXONE 1 G PREMIX 50 ML IV SCH (01:00)
[2018-12-30] MEDS: ZOLPIDEM TARTRATE 5MG TABLET PO PRN ×2 (01:23→22:13)
[2018-12-30] MEDS: MORPHINE SULFATE 4 MG/ML CPJ (NOT FOR IM USE) IV PRN ×3 (01:25→22:05)
[2018-12-30] MEDS: CLONIDINE 0.1MG TABLET PO PRN (01:39)
[2018-12-30] MEDS: DIPHENHYDRAMINE 50MG/ML VIAL IV PRN ×2 (01:40→22:17)
[2018-12-30] MEDS: BLOOD SUGAR DIAGNOSTIC STRIP TEST SCH ×9 (01:49→18:16)
[2018-12-30] MEDS: HYDRALAZINE 20MG/ML VIAL IV PRN ×2 (05:34→11:21)
[2018-12-30 07:33] LABS: HEMATOCRIT. 25.9 % (42.0-52.0); HEMOGLOBIN. 8.1 g/dL (14.0-18.0); MEAN CORPUSCULAR HEMOGLOBIN 22.5 pg (28.0-32.0); MEAN CORPUSCULAR VOLUME 71.8 fL (80.0-94.0); MEAN PLATELET VOLUME 8.7 fl (7.4-10.4); PLATELET 350 x1000/uL (130-400); RED BLOOD CELL COUNT 3.61 mill/uL (4.7-6.1); RED CELL DISTRIBUTION WIDTH 25.9 % (11.6-14.6)
[2018-12-30 08:53] LABS: PLATELET ESTIMATE NORMAL
[2018-12-30 09:02] LABS: CHLORIDE 102 mEq/L (98-107)
[2018-12-30 09:08] LABS: LDL CHOLESTEROL 38 mg/dL (5-100)
[2018-12-30 09:09] LABS: HDL CHOLESTEROL 44 mg/dL (40-59)
[2018-12-30] MEDS: CEFTRIAXONE 1 G PREMIX 50 ML IV SCH (11:20)
[2018-12-30 16:35] LABS: FOLIC ACID (FOLATE) SERUM 15.6 ng/mL (>5.38)
[2018-12-31] VITALS (11 sets, daily range): BP systolic 150–199; BP diastolic 90–120
[2018-12-31] MEDS: BLOOD SUGAR DIAGNOSTIC STRIP TEST SCH ×11 (02:00→23:32)
[2018-12-31] MEDS: MORPHINE SULFATE 4 MG/ML CPJ (NOT FOR IM USE) IV PRN ×4 (02:48→20:38)
[2018-12-31] MEDS: DIPHENHYDRAMINE 50MG/ML VIAL IV PRN ×2 (02:49→20:46)
[2018-12-31] MEDS: CLONIDINE 0.1MG TABLET PO PRN (08:03)
[2018-12-31 08:14] LABS: HIV SCREEN 4G Non Reactive (Non Reactive)
[2018-12-31 11:35] LABS: HEMATOCRIT. 27.6 % (42.0-52.0); HEMOGLOBIN. 8.5 g/dL (14.0-18.0); MEAN CORPUSCULAR HEMOGLOBIN 22.8 pg (28.0-32.0); MEAN CORPUSCULAR VOLUME 73.9 fL (80.0-94.0); PLATELET 344 x1000/uL (130-400); RED BLOOD CELL COUNT 3.73 mill/uL (4.7-6.1); RED CELL DISTRIBUTION WIDTH 26.1 % (11.6-14.6)
[2018-12-31] MEDS ORDERED: HEPARIN SODIUM 1,000 UNIT/1ML VIAL IV ONE ×2 (12:30→15:15)
[2018-12-31] MEDS: CEFTRIAXONE 1 G PREMIX 50 ML IV SCH (13:37)
[2018-12-31] MEDS: HYDRALAZINE 20MG/ML VIAL IV PRN (14:45)
[2018-12-31] MEDS: ZOLPIDEM TARTRATE 5MG TABLET PO PRN (20:46)
[2018-12-31] MEDS: LACTULOSE 20G/30ML UDC PO SCH (22:00)
[2019-01-01] VITALS (8 sets, daily range): BP systolic 133–183; BP diastolic 100–116
[2019-01-01] MEDS: HYDRALAZINE 20MG/ML VIAL IV PRN ×3 (00:18→23:50)
[2019-01-01] MEDS: MORPHINE SULFATE 4 MG/ML CPJ (NOT FOR IM USE) IV PRN ×5 (00:26→21:47)
[2019-01-01] MEDS: DIPHENHYDRAMINE 50MG/ML VIAL IV PRN ×2 (00:27→06:09)
[2019-01-01] MEDS: BLOOD SUGAR DIAGNOSTIC STRIP TEST SCH ×9 (01:26→21:40)
[2019-01-01] MEDS: LACTULOSE 20G/30ML UDC PO SCH ×4 (06:00→22:00)
[2019-01-01 06:32] LABS: HEMATOCRIT. 28.8 % (42.0-52.0); HEMOGLOBIN. 8.9 g/dL (14.0-18.0); MEAN CORPUSCULAR HEMOGLOBIN 22.6 pg (28.0-32.0); MEAN CORPUSCULAR VOLUME 73.3 fL (80.0-94.0); MEAN PLATELET VOLUME 9.1 fl (7.4-10.4); PLATELET 349 x1000/uL (130-400); RED BLOOD CELL COUNT 3.93 mill/uL (4.7-6.1); RED CELL DISTRIBUTION WIDTH 26.4 % (11.6-14.6)
[2019-01-01 11:51] LABS: NUCLEATED RED BLOOD CELLS 1 /100 WBC; PLATELET ESTIMATE NORMAL
[2019-01-01] MEDS: CLONIDINE 0.1MG TABLET PO PRN (13:17)
[2019-01-01] MEDS: CEFTRIAXONE 1 G PREMIX 50 ML IV SCH (13:49)
[2019-01-01 13:53] LABS: PLATELET ESTIMATE NORMAL
[2019-01-01] MEDS ORDERED: HEPARIN SODIUM 1,000 UNIT/1ML VIAL IV NR (23:00)
[2019-01-02 00:07] VITALS: BP 184/104
[2019-01-02 04:00] VITALS: BP 169/96
[2019-01-02] MEDS: MORPHINE SULFATE 4 MG/ML CPJ (NOT FOR IM USE) IV PRN ×4 (04:24→21:04)
[2019-01-02] MEDS: LACTULOSE 20G/30ML UDC PO SCH ×3 (05:16→21:12)
[2019-01-02] MEDS: CLONIDINE 0.1MG TABLET PO PRN ×2 (05:16→11:54)
[2019-01-02] MEDS: BLOOD SUGAR DIAGNOSTIC STRIP TEST SCH ×4 (05:17→21:12)
[2019-01-02 08:00] VITALS: BP 168/98
[2019-01-02 09:20] LABS: HEMATOCRIT. 27.8 % (42.0-52.0); HEMOGLOBIN. 8.7 g/dL (14.0-18.0); MEAN CORPUSCULAR HEMOGLOBIN 22.7 pg (28.0-32.0); MEAN PLATELET VOLUME 8.2 fl (7.4-10.4); PLATELET 358 x1000/uL (130-400); RED BLOOD CELL COUNT 3.81 mill/uL (4.7-6.1); RED CELL DISTRIBUTION WIDTH 27.3 % (11.6-14.6)
[2019-01-02] MEDS: CEFTRIAXONE 1 G PREMIX 50 ML IV SCH (12:00)
[2019-01-02 12:40] VITALS: BP 179/106
[2019-01-02 16:00] VITALS: BP 168/106
[2019-01-02 20:00] VITALS: BP 159/100
[2019-01-03] VITALS: BP 157/101
[2019-01-03] MEDS: ZOLPIDEM TARTRATE 5MG TABLET PO PRN (00:26)
[2019-01-03 04:00] VITALS: BP_SYST 171; BP_SYST 97; BP_DIAS 108; BP_DIAS 65
[2019-01-03] MEDS: BLOOD SUGAR DIAGNOSTIC STRIP TEST SCH ×4 (05:31→21:00)
[2019-01-03] MEDS: LACTULOSE 20G/30ML UDC PO SCH ×3 (05:32→22:00)
[2019-01-03] MEDS: MORPHINE SULFATE 4 MG/ML CPJ (NOT FOR IM USE) IV PRN ×3 (05:49→22:25)
[2019-01-03] MEDS: HYDRALAZINE 20MG/ML VIAL IV PRN (05:49)
[2019-01-03 05:55] LABS: HEMATOCRIT. 25.2 % (42.0-52.0); MEAN CORPUSCULAR HEMOGLOBIN 22.7 pg (28.0-32.0); MEAN CORPUSCULAR VOLUME 71.2 fL (80.0-94.0); MEAN PLATELET VOLUME 8.5 fl (7.4-10.4); PLATELET 334 x1000/uL (130-400); RED BLOOD CELL COUNT 3.54 mill/uL (4.7-6.1); RED CELL DISTRIBUTION WIDTH 26.2 % (11.6-14.6)
[2019-01-03 09:03] VITALS: BP 156/96
[2019-01-03 09:57] LABS: PLATELET ESTIMATE NORMAL
[2019-01-03 10:37] VITALS: BP 163/98
[2019-01-03] MEDS: CEFTRIAXONE 1 G PREMIX 50 ML IV SCH (12:16)
[2019-01-03 16:00] VITALS: BP 159/62
[2019-01-03 17:30] LABS: PLATELET ESTIMATE NORMAL
[2019-01-03 20:00] VITALS: BP 183/106
[2019-01-03] MEDS: CLONIDINE 0.1MG TABLET PO PRN (22:27)
[2019-01-04] VITALS: BP 177/110
[2019-01-04 04:00] VITALS: BP 149/92
[2019-01-04] MEDS: LACTULOSE 20G/30ML UDC PO SCH ×3 (06:00→21:53)
[2019-01-04] MEDS: BLOOD SUGAR DIAGNOSTIC STRIP TEST SCH ×4 (07:32→21:00)
[2019-01-04 08:00] VITALS: BP 157/98
[2019-01-04 08:55] LABS: HEMATOCRIT. 25.2 % (42.0-52.0); MEAN CORPUSCULAR HEMOGLOBIN 22.7 pg (28.0-32.0); MEAN CORPUSCULAR VOLUME 71.2 fL (80.0-94.0); MEAN PLATELET VOLUME 8.3 fl (7.4-10.4); PLATELET 364 x1000/uL (130-400); RED BLOOD CELL COUNT 3.54 mill/uL (4.7-6.1); RED CELL DISTRIBUTION WIDTH 26.9 % (11.6-14.6)
[2019-01-04] MEDS: CEFTRIAXONE 1 G PREMIX 50 ML IV SCH (09:09)
[2019-01-04] MEDS: MORPHINE SULFATE 4 MG/ML CPJ (NOT FOR IM USE) IV PRN ×3 (09:20→21:53)
[2019-01-04 12:00] VITALS: BP 185/122
[2019-01-04] MEDS: CLONIDINE 0.1MG TABLET PO PRN ×2 (12:42→22:06)
[2019-01-04] MEDS: HYDRALAZINE 20MG/ML VIAL IV PRN (15:37)
[2019-01-04 16:00] VITALS: BP 172/105
[2019-01-04 16:40] LABS: PLATELET ESTIMATE NORMAL
[2019-01-04 20:00] VITALS: BP 170/103
[2019-01-05] VITALS: BP 163/114
[2019-01-05 01:00] VITALS: BP 163/114
[2019-01-05 04:00] VITALS: BP 156/106
[2019-01-05] MEDS: MORPHINE SULFATE 4 MG/ML CPJ (NOT FOR IM USE) IV PRN (05:47)
[2019-01-05] MEDS: LACTULOSE 20G/30ML UDC PO SCH ×2 (05:58→13:00)
[2019-01-05] MEDS: BLOOD SUGAR DIAGNOSTIC STRIP TEST SCH ×2 (05:59→12:40)
[2019-01-05 06:58] LABS: HEMOGLOBIN. 7.8 g/dL (14.0-18.0); MEAN CORPUSCULAR VOLUME 70.8 fL (80.0-94.0); MEAN PLATELET VOLUME 9.1 fl (7.4-10.4); PLATELET 368 x1000/uL (130-400); RED BLOOD CELL COUNT 3.39 mill/uL (4.7-6.1)
[2019-01-05] MEDS: CEFTRIAXONE 1 G PREMIX 50 ML IV SCH (07:48)
[2019-01-05 08:00] VITALS: BP 162/101
[2019-01-05 11:46] VITALS: BP 148/88
[2019-01-05 12:00] VITALS: BP 171/99
[2019-01-05 13:09] LABS: PLATELET ESTIMATE NORMAL
[2019-01-18] MEDS ORDERED: MORP15TA67 MT (05:35)
[2019-01-18] MEDS ORDERED: HYDR8TAB2 MT (05:35)
[2019-01-24] MEDS ORDERED: S350 PO (19:15)
== END 2019-01-05 14:45 | disposition home or self-care (01) | DRG 425 ==
LOC: ER 06:23 → 7WST 07:03 → EDBEDREQ 07:08 → EDBEDREQTM 07:08 → ENRESERV 20:13
PROVIDERS: ADMIT Internal Medicine; ATTEND Internal Medicine
PROC: 5A1D70Z Performance of Urinary Filtration, Intermittent, Less than 6 Hours Per Day (ICD-10-PCS; principal; 2018-12-29)
PROC: 5A1D70Z Performance of Urinary Filtration, Intermittent, Less than 6 Hours Per Day (ICD-10-PCS; 2018-12-30)
PROC: 5A1D70Z Performance of Urinary Filtration, Intermittent, Less than 6 Hours Per Day (ICD-10-PCS; 2018-12-31)
PROC: 5A1D70Z Performance of Urinary Filtration, Intermittent, Less than 6 Hours Per Day (ICD-10-PCS; 2019-01-01)
PROC: 5A1D70Z Performance of Urinary Filtration, Intermittent, Less than 6 Hours Per Day (ICD-10-PCS; 2019-01-04)
DX: E87.5 Hyperkalemia (principal); G92 Toxic encephalopathy; J90 Pleural effusion, not elsewhere classified; R18.8 Other ascites; E72.20 Disorder of urea cycle metabolism, unspecified; I12.0 Hypertensive chronic kidney disease with stage 5 chronic kidney disease or end stage renal disease; E11.21 Type 2 diabetes mellitus with diabetic nephropathy; E11.22 Type 2 diabetes mellitus with diabetic chronic kidney disease; E83.39 Other disorders of phosphorus metabolism; N18.6 End stage renal disease; N39.0 Urinary tract infection, site not specified; F17.210 Nicotine dependence, cigarettes, uncomplicated; D50.9 Iron deficiency anemia, unspecified; E78.5 Hyperlipidemia, unspecified; I25.10 Atherosclerotic heart disease of native coronary artery without angina pectoris; E11.319 Type 2 diabetes mellitus with unspecified diabetic retinopathy without macular edema; E11.40 Type 2 diabetes mellitus with diabetic neuropathy, unspecified; G89.29 Other chronic pain; E11.51 Type 2 diabetes mellitus with diabetic peripheral angiopathy without gangrene; F11.20 Opioid dependence, uncomplicated; K76.9 Liver disease, unspecified; Z99.2 Dependence on renal dialysis; Z91.018 Allergy to other foods; Z91.15 Patient's noncompliance with renal dialysis; Z86.73 Personal history of transient ischemic attack (TIA), and cerebral infarction without residual deficits; Z91.14 Patient's other noncompliance with medication regimen; Z95.5 Presence of coronary angioplasty implant and graft; I25.2 Old myocardial infarction; Z68.36 Body mass index [BMI] 36.0-36.9, adult
CPT/HCPCS: 36415; 71045; 76700; 80048; 80061; 80076; 82140; 82550; 82553; 82607; 82746; 82962; 83735; 84100; 84132; 84443; 86705; 86709; 86803; 87077; 87186; 87340; 87389; 93005; 93970; 96374; 96375; 97162; 97166; 97530; 97535; 99291; C1893; J0360; J0696; J1200; J1644; J1815; J2270; J2405; J3490

== ENCOUNTER 2019-01-07 04:59 | Emergency (ER) | payer MEDICAID ==
[~2019-01-07] VITALS: Ht 177.8 cm; Wt 87.0 kg
[2019-01-07] MEDS ORDERED: ONDANSETRON 4MG ODT PO ONE (06:30)
[2019-01-07] MEDS ORDERED: HYDROCODONE/ACETAMINOPHEN 5/325MG TABLET PO ONE (06:30)
[2019-01-07 10:00] VITALS: BP 141/89
[2019-01-18] MEDS ORDERED: HYDR8TAB2 MT (05:35)
[2019-01-18] MEDS ORDERED: MORP15TA67 MT (05:35)
[2019-01-24] MEDS ORDERED: S350 PO (19:15)
== END 2019-01-07 10:55 | disposition home or self-care (01) ==
LOC: ER 04:59
DX: I12.0 Hypertensive chronic kidney disease with stage 5 chronic kidney disease or end stage renal disease (principal); M54.5 Low back pain; E11.22 Type 2 diabetes mellitus with diabetic chronic kidney disease; N18.6 End stage renal disease; Z99.2 Dependence on renal dialysis; Z86.73 Personal history of transient ischemic attack (TIA), and cerebral infarction without residual deficits; Z98.890 Other specified postprocedural states; Z91.018 Allergy to other foods; W18.39XA Other fall on same level, initial encounter; Y93.89 Activity, other specified; Y92.89 Other specified places as the place of occurrence of the external cause; Y99.8 Other external cause status
CPT/HCPCS: 72070; 72100; 72170; 99283; Q0162

== ENCOUNTER 2019-02-27 21:27 | Inpatient (IN) | payer MEDICAID ==
[~2019-02-27] VITALS: Ht 182.9 cm; Wt 88.5 kg
[~2019-02-27 21:27] MED LIST changes: -CALC667C PO; -COR6 PO; -CYM20 PO; -HYDR100T26 PO; -LEVO500T2 PO; -LOSA50TA3 PO; -NEPVIT PO; -NIFE60TA64 PO; +S350 PO
[2019-02-27 23:57] LABS: HEMATOCRIT. 28.4 % (42.0-52.0); HEMOGLOBIN. 9.3 g/dL (14.0-18.0); MEAN CORPUSCULAR HEMOGLOBIN 24.1 pg (28.0-32.0); MEAN CORPUSCULAR VOLUME 73.1 fL (80.0-94.0); MEAN PLATELET VOLUME 9.2 fl (7.4-10.4); RED BLOOD CELL COUNT 3.88 mill/uL (4.7-6.1); RED CELL DISTRIBUTION WIDTH 21.9 % (11.6-14.6)
[2019-02-28 00:03] LABS: CHLORIDE 96 mEq/L (98-107)
[2019-02-28 00:08] LABS: INR 1.3; PARTIAL THROMBOPLASTIN TIME 38.6 sec (23.4-31.0); PROTHROMBIN TIME 13.4 sec (9.6-11.0)
[2019-02-28] MEDS ORDERED: CEFTRIAXONE 1 G PREMIX 50 ML IV ONE (01:15)
[2019-02-28] MEDS ORDERED: VANCOMYCIN 500 MG PREMIX 100 ML IV ONE (01:15)
[2019-02-28 02:59] LABS: NUCLEATED RED BLOOD CELLS 3 /100 WBC
[2019-02-28 03:02] LABS: PLATELET ESTIMATE NORMAL
[2019-02-28 03:04] LABS: PLATELET 352 x1000/uL (130-400)
[2019-02-28] MEDS ORDERED: HYDROCODONE/ACETAMINOPHEN 10/325MG TABLET PO ONE (04:30)
[2019-02-28] MEDS ORDERED: CLONIDINE 0.2MG TABLET ONE (04:53)
[2019-02-28] MEDS ORDERED: CLONIDINE 0.2MG TABLET PO ONE (05:00)
[2019-02-28] MEDS ORDERED: WARFARIN SODIUM 5MG TABLET PO ONE (05:15)
[2019-02-28 07:46] VITALS: BP 151/101
[2019-02-28 08:00] VITALS: BP 130/83
[2019-02-28] MEDS ORDERED: IPRATROPIUM/ALBUTEROL 0.5-3(2.5)MG/3ML NEB INH PRN (09:30)
[2019-02-28] MEDS ORDERED: MAGNESIUM/ALUMINUM HYDROXIDE/SIMETHICONE 30ML UDC PO PRN (09:30)
[2019-02-28] MEDS ORDERED: ACETAMINOPHEN 325MG TABLET PO PRN (09:30)
[2019-02-28] MEDS ORDERED: DIPHENHYDRAMINE 50MG/ML VIAL IV PRN (09:30)
[2019-02-28] MEDS ORDERED: ONDANSETRON HCL 4MG/2ML INJ IV PRN (09:30)
[2019-02-28] MEDS ORDERED: ENOXAPARIN 40MG/0.4ML SYR SUBCUT SCH (09:30)
[2019-02-28] MEDS ORDERED: CLONIDINE 0.1MG TABLET PO PRN (09:30)
[2019-02-28] MEDS: FUROSEMIDE 40MG/4ML VIAL IV SCH ×2 (10:12→17:16)
[2019-02-28] MEDS ORDERED: DEXTROSE 50% WATER 50ML SYRINGE IV PRN (10:15)
[2019-02-28 10:35] LABS: PHOSPHORUS 6.1 mg/dL (2.5-4.9)
[2019-02-28] MEDS: BLOOD SUGAR DIAGNOSTIC STRIP TEST SCH ×3 (11:51→21:35)
[2019-02-28] MEDS: INSULIN LISPRO 100 UNITS/ML SUBCUT SCH ×3 (11:52→21:00)
[2019-02-28 12:00] VITALS: BP 146/90
[2019-02-28] MEDS: APIXABAN 5 MG TABLET PO SCH ×2 (12:00→17:16)
[2019-02-28] MEDS: HYDROCODONE/ACETAMINOPHEN 5/325MG TABLET PO PRN ×3 (12:01→22:41)
[2019-02-28 16:00] VITALS: BP 161/100
[2019-02-28 16:10] LABS: CREATINE KINASE MB FRACTION 3.2 ng/mL (0.5-3.6)
[2019-02-28 20:00] VITALS: BP 167/89
[2019-02-28] MEDS: EPOETIN ALFA 10000UNITS/ML VIAL SUBCUT SCH (22:22)
[2019-02-28] MEDS: CEFTRIAXONE 1 G PREMIX 50 ML IV SCH (22:31)
[2019-03-01] VITALS: BP 121/78
[2019-03-01 01:05] LABS: CREATINE KINASE MB FRACTION 2.6 ng/mL (0.5-3.6)
[2019-03-01] MEDS: HYDROCODONE/ACETAMINOPHEN 5/325MG TABLET PO PRN ×4 (02:25→17:06)
[2019-03-01 04:00] VITALS: BP 130/83
[2019-03-01 06:45] LABS: BASOPHILS % 0.4 % (0.0-2.0); EOSINOPHILS % 0.1 % (0.0-5.0); HEMATOCRIT. 27.4 % (42.0-52.0); HEMOGLOBIN. 8.6 g/dL (14.0-18.0); LYMPHOCYTES % 18.9 % (20.0-50.0); MEAN CORPUSCULAR HEMOGLOBIN 23.3 pg (28.0-32.0); MEAN CORPUSCULAR VOLUME 73.9 fL (80.0-94.0); MEAN PLATELET VOLUME 10.2 fl (7.4-10.4); MONOCYTES % 4.9 % (2.0-8.0); NEUTROPHILS % 75.7 % (40.0-76.0); PLATELET 329 x1000/uL (130-400); RED CELL DISTRIBUTION WIDTH 22.5 % (11.6-14.6)
[2019-03-01 06:59] LABS: CHLORIDE 100 mEq/L (98-107)
[2019-03-01 07:19] LABS: LDL CHOLESTEROL 48 mg/dL (5-100)
[2019-03-01 07:21] LABS: HDL CHOLESTEROL 20 mg/dL (40-59)
[2019-03-01] MEDS: INSULIN LISPRO 100 UNITS/ML SUBCUT SCH ×4 (07:40→21:27)
[2019-03-01] MEDS: BLOOD SUGAR DIAGNOSTIC STRIP TEST SCH ×4 (07:47→17:09)
[2019-03-01 08:00] VITALS: BP 126/80
[2019-03-01] MEDS: APIXABAN 5 MG TABLET PO SCH ×2 (09:41→17:05)
[2019-03-01] MEDS: FUROSEMIDE 40MG/4ML VIAL IV SCH ×2 (09:43→17:05)
[2019-03-01 12:00] VITALS: BP 127/84
[2019-03-01 16:00] VITALS: BP 139/89
[2019-03-01] MEDS: CLOTRIMAZOLE 1% CREAM 30GM TOP SCH ×2 (17:05→23:21)
[2019-03-01 20:00] VITALS: BP 133/84
[2019-03-01] MEDS: CEFTRIAXONE 1 G PREMIX 50 ML IV SCH (21:25)
[2019-03-02] VITALS (7 sets, daily range): BP systolic 121–156; BP diastolic 77–98
[2019-03-02] MEDS: BLOOD SUGAR DIAGNOSTIC STRIP TEST SCH ×4 (06:45→21:00)
[2019-03-02] MEDS: INSULIN LISPRO 100 UNITS/ML SUBCUT SCH ×4 (06:45→21:00)
[2019-03-02] MEDS: FUROSEMIDE 40MG/4ML VIAL IV SCH ×2 (06:48→18:14)
[2019-03-02] MEDS: HYDROCODONE/ACETAMINOPHEN 5/325MG TABLET PO PRN (06:50)
[2019-03-02] MEDS: APIXABAN 5 MG TABLET PO SCH ×2 (09:00→09:30)
[2019-03-02] MEDS: CLOTRIMAZOLE 1% CREAM 30GM TOP SCH ×3 (09:00→21:06)
[2019-03-02] MEDS ORDERED: LIDOCAINE HCL/EPINEPHRINE 1%-EPI 1:100,000 30 ML VIAL INFIL NR (10:45)
[2019-03-02] MEDS ORDERED: LIDOCAINE HCL/EPINEPHRINE 1%-EPI 1:100,000 20 ML VIAL INFIL NR (11:00)
[2019-03-02] MEDS ORDERED: CARVEDILOL 6.25 MG TABLET PO NR (11:15)
[2019-03-02] MEDS ORDERED: MORPHINE SULFATE 2 MG/ML CPJ (NOT FOR IM USE) IV PRN (12:00)
[2019-03-02] MEDS: HYDROCODONE/ACETAMINOPHEN 10/325MG TABLET PO PRN ×2 (13:11→20:18)
[2019-03-02 15:46] LABS: HEMATOCRIT. 22.2 % (42.0-52.0); HEMOGLOBIN. 7.1 g/dL (14.0-18.0); MEAN CORPUSCULAR HEMOGLOBIN 23.4 pg (28.0-32.0); MEAN CORPUSCULAR VOLUME 73.6 fL (80.0-94.0); MEAN PLATELET VOLUME 9.7 fl (7.4-10.4); PLATELET 329 x1000/uL (130-400); RED BLOOD CELL COUNT 3.02 mill/uL (4.7-6.1); RED CELL DISTRIBUTION WIDTH 21.8 % (11.6-14.6)
[2019-03-02 16:06] LABS: PLATELET ESTIMATE NORMAL
[2019-03-02] MEDS ORDERED: CARVEDILOL 6.25 MG TABLET PO SCH (17:45)
[2019-03-02] MEDS ORDERED: VANCOMYCIN 750 MG PREMIX 150 ML IV NR (21:00)
[2019-03-02] MEDS ORDERED: VANCOMYCIN 1500MG in DEXTROSE 5% WATER 250ML IV NR (21:00)
[2019-03-02] MEDS: CARVEDILOL 6.25 MG TABLET PO SCH (21:06)
[2019-03-02] MEDS: EPOETIN ALFA 10000UNITS/ML VIAL SUBCUT SCH (21:06)
[2019-03-02] MEDS: CEFTRIAXONE 1 G PREMIX 50 ML IV SCH (21:17)
[2019-03-03] VITALS: BP 116/73
[2019-03-03 04:00] VITALS: BP 137/86
[2019-03-03] MEDS: FUROSEMIDE 40MG/4ML VIAL IV SCH ×2 (06:18→17:39)
[2019-03-03] MEDS: HYDROCODONE/ACETAMINOPHEN 10/325MG TABLET PO PRN ×3 (06:36→22:53)
[2019-03-03] MEDS: BLOOD SUGAR DIAGNOSTIC STRIP TEST SCH ×4 (06:37→21:00)
[2019-03-03] MEDS: INSULIN LISPRO 100 UNITS/ML SUBCUT SCH ×4 (06:37→21:00)
[2019-03-03] MEDS: CLOTRIMAZOLE 1% CREAM 30GM TOP SCH ×2 (09:00→21:36)
[2019-03-03] MEDS: CARVEDILOL 6.25 MG TABLET PO SCH ×2 (09:08→21:36)
[2019-03-03 11:58] VITALS: BP 127/78
[2019-03-03 15:46] LABS: HEMATOCRIT. 24.8 % (42.0-52.0); HEMOGLOBIN. 7.7 g/dL (14.0-18.0); MEAN CORPUSCULAR HEMOGLOBIN 22.8 pg (28.0-32.0); MEAN CORPUSCULAR VOLUME 73.1 fL (80.0-94.0); MEAN PLATELET VOLUME 9.4 fl (7.4-10.4); PLATELET 323 x1000/uL (130-400); RED BLOOD CELL COUNT 3.39 mill/uL (4.7-6.1); RED CELL DISTRIBUTION WIDTH 22.5 % (11.6-14.6)
[2019-03-03 15:54] VITALS: BP 126/83
[2019-03-03 16:17] LABS: PLATELET ESTIMATE NORMAL
[2019-03-03 20:00] VITALS: BP 141/90
[2019-03-03] MEDS: CEFTRIAXONE 1 G PREMIX 50 ML IV SCH (21:36)
[2019-03-04] VITALS: BP 133/81
[2019-03-04 04:00] VITALS: BP 123/80
[2019-03-04] MEDS: FUROSEMIDE 40MG/4ML VIAL IV SCH ×2 (06:27→17:15)
[2019-03-04] MEDS: HYDROCODONE/ACETAMINOPHEN 10/325MG TABLET PO PRN ×3 (06:28→22:33)
[2019-03-04] MEDS: BLOOD SUGAR DIAGNOSTIC STRIP TEST SCH ×4 (06:29→21:00)
[2019-03-04] MEDS: INSULIN LISPRO 100 UNITS/ML SUBCUT SCH ×4 (06:41→21:00)
[2019-03-04 08:00] VITALS: BP 135/86
[2019-03-04] MEDS: CARVEDILOL 6.25 MG TABLET PO SCH ×2 (09:00→22:53)
[2019-03-04] MEDS: APIXABAN 5 MG TABLET PO SCH ×2 (09:00→17:00)
[2019-03-04] MEDS: CLOTRIMAZOLE 1% CREAM 30GM TOP SCH ×2 (09:00→22:34)
[2019-03-04 12:00] VITALS: BP 148/89
[2019-03-04 16:00] VITALS: BP 139/88
[2019-03-04] MEDS ORDERED: COR6 PO (17:43)
[2019-03-04] MEDS ORDERED: CLOT15CR2 TOP (17:43)
[2019-03-04] MEDS ORDERED: APIX5TAB PO (17:43)
[2019-03-04] MEDS ORDERED: FURO40TA5 MT (17:43)
[2019-03-04 20:00] VITALS: BP 149/85
[2019-03-04] MEDS: EPOETIN ALFA 10000UNITS/ML VIAL SUBCUT SCH (22:34)
[2019-03-04] MEDS: CEFTRIAXONE 1 G PREMIX 50 ML IV SCH (22:35)
[2019-03-05] VITALS: BP 131/81
[2019-03-05 04:00] VITALS: BP 148/93
[2019-03-05] MEDS: INSULIN LISPRO 100 UNITS/ML SUBCUT SCH (06:19)
[2019-03-05] MEDS: BLOOD SUGAR DIAGNOSTIC STRIP TEST SCH (06:19)
[2019-03-05] MEDS: FUROSEMIDE 40MG/4ML VIAL IV SCH (07:06)
[2019-03-05 08:00] VITALS: BP 160/97
[2019-03-05] MEDS: CARVEDILOL 6.25 MG TABLET PO SCH (08:06)
[2019-03-05] MEDS: HYDROCODONE/ACETAMINOPHEN 10/325MG TABLET PO PRN (08:06)
[2019-03-05 08:25] VITALS: BP 160/97
[2019-03-05] MEDS: APIXABAN 5 MG TABLET PO SCH (09:00)
[2019-03-05] MEDS: CLOTRIMAZOLE 1% CREAM 30GM TOP SCH (09:51)
== END 2019-03-05 10:30 | DRG 710 ==
LOC: ER 02-28 00:10 → 8WST 02-28 01:07 → EDBEDREQSVC 02-28 01:10 → EDBEDREQTM 02-28 01:10 → EDBEDREQ 02-28 01:10 → ENRESERV 02-28 02:12
PROVIDERS: ADMIT Internal Medicine; ATTEND Internal Medicine
PROC: 5A1D70Z Performance of Urinary Filtration, Intermittent, Less than 6 Hours Per Day (ICD-10-PCS; 2019-02-28)
PROC: 0J990ZZ Drainage of Buttock Subcutaneous Tissue and Fascia, Open Approach (ICD-10-PCS; principal; 2019-03-02)
PROC: 5A1D70Z Performance of Urinary Filtration, Intermittent, Less than 6 Hours Per Day (ICD-10-PCS; 2019-03-02)
PROC: 5A1D70Z Performance of Urinary Filtration, Intermittent, Less than 6 Hours Per Day (ICD-10-PCS; 2019-03-03)
DX: A41.9 Sepsis, unspecified organism (principal); I13.2 Hypertensive heart and chronic kidney disease with heart failure and with stage 5 chronic kidney disease, or end stage renal disease; E11.22 Type 2 diabetes mellitus with diabetic chronic kidney disease; E44.0 Moderate protein-calorie malnutrition; I82.411 Acute embolism and thrombosis of right femoral vein; E87.1 Hypo-osmolality and hyponatremia; L03.115 Cellulitis of right lower limb; E11.40 Type 2 diabetes mellitus with diabetic neuropathy, unspecified; E11.319 Type 2 diabetes mellitus with unspecified diabetic retinopathy without macular edema; N18.6 End stage renal disease; I27.20 Pulmonary hypertension, unspecified; I82.421 Acute embolism and thrombosis of right iliac vein; Z99.2 Dependence on renal dialysis; D50.9 Iron deficiency anemia, unspecified; N48.1 Balanitis; L02.31 Cutaneous abscess of buttock; I50.23 Acute on chronic systolic (congestive) heart failure; E11.65 Type 2 diabetes mellitus with hyperglycemia; H54.61 Unqualified visual loss, right eye, normal vision left eye; I25.10 Atherosclerotic heart disease of native coronary artery without angina pectoris; I42.9 Cardiomyopathy, unspecified; L03.116 Cellulitis of left lower limb; E87.5 Hyperkalemia; M12.9 Arthropathy, unspecified; H26.9 Unspecified cataract; L97.919 Non-pressure chronic ulcer of unspecified part of right lower leg with unspecified severity; L97.929 Non-pressure chronic ulcer of unspecified part of left lower leg with unspecified severity; Z79.4 Long term (current) use of insulin; Z82.49 Family history of ischemic heart disease and other diseases of the circulatory system; Z83.3 Family history of diabetes mellitus; Z86.711 Personal history of pulmonary embolism; Z68.26 Body mass index [BMI] 26.0-26.9, adult; I25.2 Old myocardial infarction; Z86.718 Personal history of other venous thrombosis and embolism; Z86.73 Personal history of transient ischemic attack (TIA), and cerebral infarction without residual deficits; Z91.81 History of falling; Z95.5 Presence of coronary angioplasty implant and graft; Z91.15 Patient's noncompliance with renal dialysis
CPT/HCPCS: 36415; 71045; 73522; 80048; 80061; 80202; 82550; 82553; 82962; 83735; 83880; 84100; 84134; 84443; 84484; 87070; 87075; 93005; 93306; 93923; 93970; 97110; 97163; 97166; 99285; J0696; J0885; J1200; J1815; J1940; J3370; J3490; J7050; J7060; J7620

== ENCOUNTER 2019-06-27 21:38 | Emergency (ER) | payer MEDICAID ==
[~2019-06-27] VITALS: Ht 182.9 cm; Wt 73.0 kg
[~2019-06-27 21:38] MED LIST changes: +APIX5TAB PO; +CARI-166 PO; +CLOT15CR2 TOP; +COR6 PO; +FURO40TA5 MT; -S350 PO
[2019-06-27] MEDS ORDERED: FENTANYL CITRATE/PF 50MCG/ML 2ML VIAL IM ONE (23:15)
[2019-06-28] MEDS ORDERED: HYDROCODONE/ACETAMINOPHEN 5/325MG TABLET PO ONE (00:45)
[2019-06-28] MEDS ORDERED: CEFTRIAXONE SODIUM 250 MG/VIAL IM ONE (00:45)
[2019-06-28] MEDS ORDERED: CLONIDINE 0.2MG TABLET PO ONE (00:45)
[2019-06-28 02:56] VITALS: BP 169/73
== END 2019-06-28 03:58 ==
LOC: ER 21:38
DX: N34.2 Other urethritis (principal); I10 Essential (primary) hypertension; I12.0 Hypertensive chronic kidney disease with stage 5 chronic kidney disease or end stage renal disease; N18.6 End stage renal disease; Z99.2 Dependence on renal dialysis; Z88.6 Allergy status to analgesic agent; Z91.018 Allergy to other foods; Z79.899 Other long term (current) drug therapy
CPT/HCPCS: 86592; 96372; 99283; J0696; J3010; Z7610

== ENCOUNTER 2019-07-31 00:28 | Emergency (ER) | payer MEDICAID ==
[~2019-07-31] VITALS: Ht 167.6 cm; Wt 64.0 kg
[2019-07-31] MEDS ORDERED: HYDROCODONE/ACETAMINOPHEN 5/325MG TABLET PO STA (01:09)
[2019-07-31] MEDS ORDERED: ACETAMINOPHEN 650MG/20.3ML UDC PO ONE (04:00)
[2019-07-31 08:35] VITALS: BP 168/84
== END 2019-07-31 08:45 | disposition home or self-care (01) ==
LOC: ER 00:28
DX: N48.5 Ulcer of penis (principal); Z76.5 Malingerer [conscious simulation]; E11.9 Type 2 diabetes mellitus without complications; Z99.2 Dependence on renal dialysis; Z79.899 Other long term (current) drug therapy; Z88.6 Allergy status to analgesic agent
CPT/HCPCS: 93005; 99283